=== PATIENT | male | born 1960 | race American Indian/Alaskan Native ===

== ENCOUNTER 2020-05-22 02:35 | Inpatient (IN) | payer SELFPAY ==
[~2020-05-22] VITALS: Ht 180.3 cm; Wt 121.0 kg
[~2020-05-22 02:35] MED LIST: ASPI-1265 PO; ATOR20TA PO; CARV-49 PO; LISI2.5T2 PO; METF-438 PO; PANT-47 PO
[2020-05-22 03:42] LABS: ALANINE AMINOTRANSFERASE 25 U/L (12-78); ALBUMIN 3.4 G/DL (3.4-5.0); ALBUMIN/GLOBULIN RATIO 0.9 (1.1-1.5); ALKALINE PHOSPHATASE 82 IU/L (46-116); ANION GAP 10 (8-16); ASPARTATE AMINO TRANSFERASE 21 U/L (10-37); BILIRUBIN,TOTAL 1.6 MG/DL (0.1-1.0); BLOOD UREA NITROGEN 17 MG/DL (7-18); BUN/CREATININE RATIO 9.7 (5.4-32.0); CALCIUM 8.6 MG/DL (8.5-10.1); CHLORIDE 105 MMOL/L (99-107); CREATININE 1.75 MG/DL (0.60-1.10); GLUCOSE 174 MG/DL (70-104); SODIUM 140 MMOL/L (135-145); TOTAL CARBON DIOXIDE 25.3 MMOL/L (24-32); TOTAL PROTEIN 7.4 G/DL (6.4-8.2); eGFR 40 ML/MIN
[2020-05-22 04:09] LABS: BASOPHILS # (AUTO) 0.1 X10'3 (0-0.2); BASOPHILS % (AUTO) 0.6 % (0-1); EOSINOPHILS # (AUTO) 0.1 X10'3 (0-0.9); EOSINOPHILS % (AUTO) 1.1 % (0-6); HEMATOCRIT 49.4 % (42.0-52.0); HEMOGLOBIN 16.1 g/dl (14.0-17.9); LYMPHOCYTES # (AUTO) 2.3 X10'3 (1.1-4.8); LYMPHOCYTES % (AUTO) 23.5 % (21-51); MEAN CORPUSCULAR HEMOGLOBIN 28.7 PG (27.0-31.0); MEAN CORPUSCULAR HGB CONC 32.6 g/dL (33.0-36.5); MEAN PLATELET VOLUME 10.1 FL (7.4-10.4); MONOCYTES % (AUTO) 10.2 % (2-12); NEUTROPHILS # (AUTO) 6.4 X10'3 (1.8-7.7); NEUTROPHILS % (AUTO) 64.6 % (42-75); PLATELET COUNT 260 X10'3 (140-440); RED BLOOD COUNT 5.62 X10'6 (4.70-6.10); RED CELL DISTRIBUTION WIDTH 14.5 % (11.5-14.5); WHITE BLOOD COUNT 9.9 X10'3 (4.5-11.0)
[2020-05-22] MEDS ORDERED: heparin 25,000 UNIT/250ml bag 250 ML IV SCH (04:22)
[2020-05-22] MEDS ORDERED: heparin 10,000 units/1 ML INJ IV PRN (04:25)
[2020-05-22] MEDS ORDERED: heparin 10,000 units/1 ML INJ IV ONE ×2 (04:25→04:35)
[2020-05-22 04:46] LABS: D-DIMER 1.88 MG/L FEU (0-0.50); PARTIAL THROMBOPLASTIN TIME 28 SECONDS (22-32)
[2020-05-22] MEDS ORDERED: iohexol 350MG/ML 100ml bottle IV ONE (05:28)
[2020-05-22] MEDS: normal saline 1000ml 1,000 ML IV SCH (05:43)
[2020-05-22] MEDS ORDERED: ondansetron/PF 4mg/2ml inj IV PRN (05:45)
[2020-05-22] MEDS ORDERED: magnesium hydroxide 30ml (MOM) UD suspension PO PRN (05:45)
[2020-05-22] MEDS ORDERED: mag hydrox/Alum hydrox/simeth 30ml oral suspension PO PRN (05:45)
[2020-05-22] MEDS ORDERED: dextrose 50%-water 50ml dispensing syringe IV PRN ×2 (05:50)
[2020-05-22] MEDS ORDERED: dextrose ORAL solution 15 GM/59 ML bottle PO PRN ×2 (05:50)
[2020-05-22] MEDS ORDERED: MESSAGE TO PHARMACY PO ONE (05:50)
[2020-05-22] MEDS ORDERED: glucagon, human recombinant 1mg kit SUBCUT PRN (05:50)
[2020-05-22] MEDS: MESSAGE TO NURSING PO SCH ×2 (06:00→10:00)
[2020-05-22] MEDS ORDERED: CARV6.253 PO (06:02)
[2020-05-22] MEDS ORDERED: UBID100C16 PO (06:02)
[2020-05-22] MEDS ORDERED: APIX5TAB3 PO (06:02)
[2020-05-22] MEDS ORDERED: AMIO200T61 PO (06:02)
[2020-05-22] MEDS ORDERED: BACL10TA PO (06:02)
[2020-05-22] MEDS ORDERED: GLYB2.5T4 PO (06:02)
[2020-05-22] MEDS: acetaminophen 325mg tablet PO PRN ×2 (06:09→19:38)
--- NOTE | 2020-05-22 06:16 | NUR ---
Dr Hoffman aware of patient's BP of 149/125.
[2020-05-22] MEDS ORDERED: baclofen 10mg tablet PO PRN (06:20)
[2020-05-22 06:43] LABS: HEMOGLOBIN A1C 7.5 % (4.5-6.2)
[2020-05-22] MEDS ORDERED: furosemide 10 MG/1 ML 10ml inj IV ONE (06:45)
--- NOTE | 2020-05-22 07:19 | NUR ---
Pt ambulated to the restroom with IV pole, unassisted.
[2020-05-22] MEDS ORDERED: carvedilol 6.25mg tablet PO SCH (08:00)
[2020-05-22] MEDS ORDERED: apixaban 5mg tablet PO SCH (08:00)
[2020-05-22 09:00] VITALS: BP 138/114
[2020-05-22] MEDS ORDERED: apixaban 5mg tablet PO ONE (09:15)
--- NOTE | 2020-05-22 09:20 | NUR ---
Heparin Drip Orders Stopped per Sudhir NARAYAN PAGER ID: [phone] MESSAGE: Wesly Barrios Rm [id number] Heparin Drip is running at 2000 units/Hr. CT for PE is neg. Will we be continuing the drip? Nguyen MARTINEZ [phone] Drip is discontinued.
[2020-05-22] MEDS: amiodarone 200mg tablet PO SCH (10:05)
[2020-05-22] MEDS: atorvastatin 20mg tablet PO SCH (10:05)
[2020-05-22] MEDS: pantoprazole 40mg Tablet.DR PO SCH (10:05)
[2020-05-22] MEDS: aspirin 81mg tab.chew PO SCH (10:06)
[2020-05-22] MEDS: carvedilol 6.25mg tablet PO SCH ×2 (10:06→19:38)
[2020-05-22] MEDS ORDERED: metoprolol tartrate 1mg/ml inj IV PRN (10:20)
[2020-05-22] MEDS ORDERED: nitroGLYCERIN 0.4mg SUBLingual tab SL PRN (10:20)
[2020-05-22] MEDS ORDERED: aminophylline 250mg/10ml inj. IV PRN (10:20)
[2020-05-22] MEDS ORDERED: regadenoson 0.4mg/5ml syringe IV ONE (10:20)
[2020-05-22 11:00] VITALS: BP 138/114
[2020-05-22 11:18] LABS: PARTIAL THROMBOPLASTIN TIME 64 SECONDS (22-32)
--- NOTE | 2020-05-22 14:02 | NUR ---
DM Consult: A1C 7.5. Pt would benefit from DM ed prior to discharge. Addendum: 05/22/20 at [address] Amended: Links added.
[2020-05-22 15:00] VITALS: BP 103/71
[2020-05-22 15:32] VITALS: BP 11/64
[2020-05-22 19:00] VITALS: BP 125/91
[2020-05-22] MEDS: apixaban 5mg tablet PO SCH (19:38)
[2020-05-22] MEDS: insulin glargine (Lantus) pen - multi-dose SQ SCH (21:00)
[2020-05-22 23:00] VITALS: BP 132/94
[2020-05-23] VITALS (13 sets, daily range): BP systolic 109–161; BP diastolic 60–113
[2020-05-23 06:38] LABS: BASOPHILS # (AUTO) 0.1 X10'3 (0-0.2); BASOPHILS % (AUTO) 0.9 % (0-1); EOSINOPHILS # (AUTO) 0.3 X10'3 (0-0.9); HEMATOCRIT 44.6 % (42.0-52.0); HEMOGLOBIN 14.8 g/dl (14.0-17.9); LYMPHOCYTES # (AUTO) 2.8 X10'3 (1.1-4.8); LYMPHOCYTES % (AUTO) 38.8 % (21-51); MEAN CORPUSCULAR HGB CONC 33.2 g/dL (33.0-36.5); MEAN CORPUSCULAR VOLUME 87.4 FL (78-98); MEAN PLATELET VOLUME 9.7 FL (7.4-10.4); MONOCYTES # (AUTO) 0.9 X10'3 (0-0.9); MONOCYTES % (AUTO) 12.9 % (2-12); NEUTROPHILS # (AUTO) 3.2 X10'3 (1.8-7.7); NEUTROPHILS % (AUTO) 43.4 % (42-75); PLATELET COUNT 236 X10'3 (140-440); RED CELL DISTRIBUTION WIDTH 14.4 % (11.5-14.5); WHITE BLOOD COUNT 7.3 X10'3 (4.5-11.0)
--- NOTE | 2020-05-23 06:39 | NUR ---
Patient in room PCU 3016. I have received report from Taylor MARTINEZ and had the opportunity to ask questions and assume patient care. Patient asleep in bed. 2L NC. In no acute distress. Will continue to monitor.
[2020-05-23 06:48] LABS: ALANINE AMINOTRANSFERASE 24 U/L (12-78); ALBUMIN 1.5 G/DL (3.4-5.0); ALBUMIN/GLOBULIN RATIO 0.3 (1.1-1.5); ALKALINE PHOSPHATASE 70 IU/L (46-116); ANION GAP 6 (8-16); ASPARTATE AMINO TRANSFERASE 19 U/L (10-37); BILIRUBIN,TOTAL 1.6 MG/DL (0.1-1.0); BLOOD UREA NITROGEN 20 MG/DL (7-18); BUN/CREATININE RATIO 11.3 (5.4-32.0); CALCIUM 8.7 MG/DL (8.5-10.1); CHLORIDE 106 MMOL/L (99-107); CREATININE 1.77 MG/DL (0.60-1.10); GLUCOSE 128 MG/DL (70-104); POTASSIUM 3.6 MMOL/L (3.5-5.1); SODIUM 141 MMOL/L (135-145); TOTAL CARBON DIOXIDE 28.8 MMOL/L (24-32); TOTAL PROTEIN 6.6 G/DL (6.4-8.2); eGFR 40 ML/MIN
[2020-05-23] MEDS: K and/or MAG REPLACEMENT MC SCH ×2 (08:00→20:00)
[2020-05-23] MEDS: UBIDECARENONE 100 MG PO SCH (08:00)
[2020-05-23] MEDS: apixaban 5mg tablet PO SCH (08:04)
[2020-05-23] MEDS: amiodarone 200mg tablet PO SCH (08:04)
[2020-05-23] MEDS: levoTHYROXINE 25mcg tablet PO SCH (08:04)
[2020-05-23] MEDS: carvedilol 6.25mg tablet PO SCH ×2 (08:04→19:13)
[2020-05-23] MEDS: atorvastatin 20mg tablet PO SCH (08:05)
[2020-05-23] MEDS: aspirin 81mg tab.chew PO SCH (08:05)
[2020-05-23] MEDS: pantoprazole 40mg Tablet.DR PO SCH (08:07)
[2020-05-23] MEDS: MESSAGE TO NURSING PO SCH (10:00)
[2020-05-23] MEDS ORDERED: magnesium 4gm in 100ml NS 100 ML IV PRN (10:40)
[2020-05-23] MEDS ORDERED: potassium CL 10mEq/100ml bag 100 ML IV PRN (10:40)
[2020-05-23] MEDS ORDERED: potassium Cl 20 mEq SR tablet PO PRN ×2 (10:40)
[2020-05-23] MEDS ORDERED: magnesium Cl slow-release 64mg tablet PO PRN (10:40)
--- NOTE | 2020-05-23 12:19 | NUR ---
Paged Dr. Hill: PAGER ID: [phone] MESSAGE: RE: Garret Riley [id number]. MOHINI lexiscan results back. Margarette [phone]
--- NOTE | 2020-05-23 15:23 | NUR ---
F/u: Written DM ed w/ MANDA contact information placed in pt chart. Addendum: 05/23/20 at [address] Amended: Links added.
--- NOTE | 2020-05-23 18:13 | NUR ---
Problems reprioritized. Patient report given, questions answered & plan of care reviewed with JUAN Smart. Patient stable at transfer of care.
--- NOTE | 2020-05-23 18:14 | NUR ---
Patient in room PCU 3017v. I have received report from JUAN WALKER AND JUAN MÉNDEZ and had the opportunity to ask questions and assume patient care. PATIENT SITTING UP AT BEDSIDE FOR REPORT. ON ROOM AIR AND STABLE AT THIS TIME. PATIENT OFFERS NO COMPLAINTS. WILL CONTINUE TO MONITOR CLOSELY.
[2020-05-23] MEDS: insulin Lispro (HumaLOG) vial - multi-dose SQ SCH (19:11)
[2020-05-23] MEDS: lisinopril 10 MG tablet PO SCH (21:01)
[2020-05-23] MEDS: insulin glargine (Lantus) pen - multi-dose SQ SCH (21:07)
[2020-05-23] MEDS ORDERED: LIDOcaine/PRILOcaine 5gm cream TP ONE (23:50)
[2020-05-23] MEDS ORDERED: acetylcysteine 200 MG/ml 4ml vial INH ONE (23:50)
[2020-05-23] MEDS ORDERED: sodium bicarbonate (8.4%) inj. 150 MEQ in sodium chloride 0.45% 1,000 ML IV SCH (23:55)
[2020-05-24] VITALS (14 sets, daily range): BP systolic 127–160; BP diastolic 87–118
[2020-05-24 01:03] LABS: BASOPHILS # (AUTO) 0.1 X10'3 (0-0.2); BASOPHILS % (AUTO) 1.1 % (0-1); EOSINOPHILS # (AUTO) 0.3 X10'3 (0-0.9); EOSINOPHILS % (AUTO) 2.8 % (0-6); HEMOGLOBIN 15.3 g/dl (14.0-17.9); LYMPHOCYTES # (AUTO) 2.3 X10'3 (1.1-4.8); LYMPHOCYTES % (AUTO) 23.8 % (21-51); MEAN CORPUSCULAR HEMOGLOBIN 29.3 PG (27.0-31.0); MEAN CORPUSCULAR HGB CONC 33.4 g/dL (33.0-36.5); MEAN CORPUSCULAR VOLUME 87.8 FL (78-98); MEAN PLATELET VOLUME 9.6 FL (7.4-10.4); MONOCYTES # (AUTO) 0.8 X10'3 (0-0.9); MONOCYTES % (AUTO) 8.1 % (2-12); NEUTROPHILS # (AUTO) 6.1 X10'3 (1.8-7.7); NEUTROPHILS % (AUTO) 64.2 % (42-75); PLATELET COUNT 248 X10'3 (140-440); RED BLOOD COUNT 5.24 X10'6 (4.70-6.10); RED CELL DISTRIBUTION WIDTH 14.5 % (11.5-14.5); WHITE BLOOD COUNT 9.6 X10'3 (4.5-11.0)
[2020-05-24 01:18] LABS: ALANINE AMINOTRANSFERASE 16 U/L (12-78); ALBUMIN 3.1 G/DL (3.4-5.0); ALBUMIN/GLOBULIN RATIO 0.8 (1.1-1.5); ALKALINE PHOSPHATASE 73 IU/L (46-116); ANION GAP 8 (8-16); ASPARTATE AMINO TRANSFERASE 17 U/L (10-37); BILIRUBIN,TOTAL 1.1 MG/DL (0.1-1.0); BLOOD UREA NITROGEN 25 MG/DL (7-18); BUN/CREATININE RATIO 11.8 (5.4-32.0); CALCIUM 8.5 MG/DL (8.5-10.1); CHLORIDE 103 MMOL/L (99-107); CREATININE 2.11 MG/DL (0.60-1.10); GLUCOSE 169 MG/DL (70-104); MAGNESIUM 1.8 MG/DL (1.5-2.4); PHOSPHORUS 3.8 MG/DL (2.3-4.5); POTASSIUM 3.8 MMOL/L (3.5-5.1); SODIUM 139 MMOL/L (135-145); TOTAL CARBON DIOXIDE 28.5 MMOL/L (24-32); TOTAL PROTEIN 6.8 G/DL (6.4-8.2); eGFR 32 ML/MIN
[2020-05-24] MEDS: normal saline 1000ml 1,000 ML IV SCH (05:43)
--- NOTE | 2020-05-24 06:49 | NUR ---
Problems reprioritized. Patient report given, questions answered & plan of care reviewed with JUAN WALKER.
[2020-05-24] MEDS: acetylcysteine 200 MG/ml 4ml vial PO SCH ×2 (07:03→19:15)
[2020-05-24] MEDS: levoTHYROXINE 25mcg tablet PO SCH (07:07)
[2020-05-24] MEDS: amiodarone 200mg tablet PO SCH (07:07)
[2020-05-24] MEDS: atorvastatin 20mg tablet PO SCH (07:07)
[2020-05-24] MEDS: pantoprazole 40mg Tablet.DR PO SCH (07:07)
[2020-05-24] MEDS: aspirin 81mg tab.chew PO SCH (07:07)
[2020-05-24] MEDS: carvedilol 6.25mg tablet PO SCH ×2 (07:07→19:10)
[2020-05-24] MEDS ORDERED: nitroGLYCERIN-Tridil 50MG/D5W 250 ML IV ONE (07:26)
[2020-05-24] MEDS ORDERED: iohexol 350MG/ML 100ml bottle IV ONE ×2 (07:26→08:59)
[2020-05-24] MEDS ORDERED: verapamil 2.5 mg/ml inj IV ONE (07:26)
[2020-05-24] MEDS ORDERED: LIDOcaine 1% (10mg/ml)w/preservative injection 20ml MDV ONE (07:26)
[2020-05-24] MEDS ORDERED: heparin 1,000unit/ml 10ml vial 10 ML ONE (07:26)
[2020-05-24] MEDS ORDERED: midazolam 2 mg/2 ml injection ONE (07:26)
[2020-05-24] MEDS ORDERED: fentaNYL/PF 50MCG/1 ML 2ML syringe ONE (07:26)
[2020-05-24] MEDS: UBIDECARENONE 100 MG PO SCH (08:00)
[2020-05-24] MEDS: K and/or MAG REPLACEMENT MC SCH ×2 (08:00→20:00)
[2020-05-24] MEDS ORDERED: DOBUTamine-DoBUTrex 500mg/D5W 250 ML IV ONE (08:19)
[2020-05-24 09:56] LABS: ISTAT Hct ART 44 %PCV (42-52); ISTAT O2 SATURATION ARTERIAL 94 % (95-98); ISTAT SOURCE ART
[2020-05-24] MEDS ORDERED: hydrALAZINE 20mg/ml inj. IV PRN (10:30)
[2020-05-24] MEDS ORDERED: sodium bicarbonate (8.4%) inj. 150 MEQ in sodium chloride 0.45% 1,000 ML IV SCH ×2 (10:30→16:00)
[2020-05-24] MEDS: DOBUTamine-DoBUTrex 500mg/D5W 250 ML IV SCH ×2 (10:42→22:31)
--- NOTE | 2020-05-24 18:40 | NUR ---
Orientee documentation: I have reviewed and agree with all interventions, assessments performed and documented by JUAN Williamson. Orientee Medication Administration: For this medication-pass time frame, all medication were reviewed, dispensed, administered and documented per hospital policy by JUAN Williamson.
--- NOTE | 2020-05-24 18:49 | NUR ---
Patient in room PCU 3016B. I have received report from JUAN WALKER AND JUAN MÉNDEZ and had the opportunity to ask questions and assume patient care. PATIENT AWAKE FOR BEDSIDE REPORT, ON ROOM AIR, AND STABLE AT THIS TIME. 1/2NS c SODIUM BICARB INFUSING AT 100 ML/HR PER PROVIDER ORDER. WILL CONTINUE TO MONITOR CLOSELY.
[2020-05-24] MEDS: insulin Lispro (HumaLOG) vial - multi-dose SQ SCH (19:09)
[2020-05-24] MEDS: apixaban 5mg tablet PO SCH (19:09)
[2020-05-24] MEDS: insulin glargine (Lantus) pen - multi-dose SQ SCH (21:06)
[2020-05-24] MEDS: lisinopril 10 MG tablet PO SCH (21:06)
--- NOTE | 2020-05-24 22:57 | NUR ---
PATIENT'S BP ELEVATED AT 131/101 HR 77. NEW ORDERS FROM DR. COOLEY TO REDUCE DOBUTAMINE GTT TO 3 MCG/KG/MIN. WILL CONTINUE TO MONITOR CLOSELY.
[2020-05-25] VITALS (28 sets, daily range): BP systolic 115–177; BP diastolic 74–136
--- NOTE | 2020-05-25 06:02 | NUR ---
Problems reprioritized. Patient report given, questions answered & plan of care reviewed with JUAN WALKER AND JUAN MÉNDEZ.
--- NOTE | 2020-05-25 06:27 | NUR ---
Patient in room PCU 3016. I have received report from JUAN Smart and had the opportunity to ask questions and assume patient care. Patient asleep in bed and resting. In no acute distress.
--- NOTE | 2020-05-25 06:31 | NUR ---
Patient in room PCU 3016B. I have received report from Berry MARTINEZ and had the opportunity to ask questions and assume patient care. Patient sleeping comfortably and in no apparent distress. Bedside monitor shows stable vitals. Patient now NPO for FROILAN and cardioversion scheduled for today.
[2020-05-25 06:46] LABS: BASOPHILS # (AUTO) 0.1 X10'3 (0-0.2); BASOPHILS % (AUTO) 0.8 % (0-1); EOSINOPHILS # (AUTO) 0.2 X10'3 (0-0.9); EOSINOPHILS % (AUTO) 2.7 % (0-6); HEMATOCRIT 44.3 % (42.0-52.0); HEMOGLOBIN 14.7 g/dl (14.0-17.9); LYMPHOCYTES % (AUTO) 25.9 % (21-51); MEAN CORPUSCULAR HGB CONC 33.3 g/dL (33.0-36.5); MEAN CORPUSCULAR VOLUME 87.1 FL (78-98); MEAN PLATELET VOLUME 10.1 FL (7.4-10.4); MONOCYTES # (AUTO) 0.9 X10'3 (0-0.9); MONOCYTES % (AUTO) 11.3 % (2-12); NEUTROPHILS # (AUTO) 4.7 X10'3 (1.8-7.7); NEUTROPHILS % (AUTO) 59.3 % (42-75); PLATELET COUNT 224 X10'3 (140-440); RED BLOOD COUNT 5.08 X10'6 (4.70-6.10); RED CELL DISTRIBUTION WIDTH 14.6 % (11.5-14.5); WHITE BLOOD COUNT 7.9 X10'3 (4.5-11.0)
[2020-05-25 06:47] LABS: ALANINE AMINOTRANSFERASE 23 U/L (12-78); ALBUMIN/GLOBULIN RATIO 0.9 (1.1-1.5); ALKALINE PHOSPHATASE 66 IU/L (46-116); ANION GAP 6 (8-16); ASPARTATE AMINO TRANSFERASE 18 U/L (10-37); BILIRUBIN,TOTAL 1.2 MG/DL (0.1-1.0); BLOOD UREA NITROGEN 19 MG/DL (7-18); BUN/CREATININE RATIO 12.8 (5.4-32.0); CALCIUM 8.6 MG/DL (8.5-10.1); CHLORIDE 106 MMOL/L (99-107); CREATININE 1.49 MG/DL (0.60-1.10); GLUCOSE 95 MG/DL (70-104); MAGNESIUM 1.8 MG/DL (1.5-2.4); PHOSPHORUS 3.2 MG/DL (2.3-4.5); POTASSIUM 3.7 MMOL/L (3.5-5.1); SODIUM 142 MMOL/L (135-145); TOTAL CARBON DIOXIDE 29.7 MMOL/L (24-32); TOTAL PROTEIN 6.4 G/DL (6.4-8.2); eGFR 48 ML/MIN
[2020-05-25] MEDS: levoTHYROXINE 25mcg tablet PO SCH (07:47)
[2020-05-25] MEDS: amiodarone 200mg tablet PO SCH (07:47)
[2020-05-25] MEDS: atorvastatin 20mg tablet PO SCH (07:48)
[2020-05-25] MEDS: apixaban 5mg tablet PO SCH ×2 (07:48→19:44)
[2020-05-25] MEDS: aspirin 81mg tab.chew PO SCH (07:48)
[2020-05-25] MEDS: carvedilol 6.25mg tablet PO SCH ×2 (07:48→19:44)
[2020-05-25] MEDS: pantoprazole 40mg Tablet.DR PO SCH (07:48)
[2020-05-25] MEDS: acetylcysteine 200 MG/ml 4ml vial PO SCH ×2 (07:49→19:44)
[2020-05-25] MEDS: K and/or MAG REPLACEMENT MC SCH ×2 (08:00→19:42)
[2020-05-25] MEDS ORDERED: MIDAZolam 1mg/ml 10ml vial IV ONE ×2 (09:00→09:50)
[2020-05-25] MEDS ORDERED: morphine 2 MG/ML inj. syringe IV ONE (09:00)
[2020-05-25] MEDS ORDERED: amiodarone 150mg/dext, iso-os 100 ML IV ONE (09:30)
[2020-05-25] MEDS ORDERED: carvedilol 6.25mg tablet PO ONE (10:20)
--- NOTE | 2020-05-25 10:20 | NUR ---
New order from Dr. Torres: 6.25 mg coreg now. Increase dosage to 12.5 mg BID. Lisinopril 10 mg BID.
--- NOTE | 2020-05-25 10:21 | NUR ---
Per Dr. Torres dobutamine gtt @ 5 mcg/kg
[2020-05-25] MEDS ORDERED: ondansetron 4mg rapidly disintigrating tab PO PRN (14:40)
[2020-05-25] MEDS: DOBUTamine-DoBUTrex 500mg/D5W 250 ML IV SCH (15:34)
[2020-05-25] MEDS: insulin Lispro (HumaLOG) vial - multi-dose SQ SCH (18:39)
--- NOTE | 2020-05-25 19:08 | NUR ---
Patient in room PCU 3016. I have received report from Margarette MARTINEZ and Macarena RN and had the opportunity to ask questions and assume patient care.
[2020-05-25] MEDS: lisinopril 10 MG tablet PO SCH (19:45)
[2020-05-25] MEDS: insulin glargine (Lantus) pen - multi-dose SQ SCH (21:20)
[2020-05-26 02:00] VITALS: BP 137/105
[2020-05-26] MEDS: DOBUTamine-DoBUTrex 500mg/D5W 250 ML IV SCH ×2 (03:22→08:14)
[2020-05-26 05:33] LABS: BASOPHILS # (AUTO) 0.1 X10'3 (0-0.2); BASOPHILS % (AUTO) 0.8 % (0-1); EOSINOPHILS # (AUTO) 0.2 X10'3 (0-0.9); EOSINOPHILS % (AUTO) 3.1 % (0-6); HEMATOCRIT 42.7 % (42.0-52.0); HEMOGLOBIN 14.1 g/dl (14.0-17.9); LYMPHOCYTES % (AUTO) 27.7 % (21-51); MEAN CORPUSCULAR HEMOGLOBIN 29.3 PG (27.0-31.0); MEAN CORPUSCULAR HGB CONC 33.1 g/dL (33.0-36.5); MEAN CORPUSCULAR VOLUME 88.5 FL (78-98); MEAN PLATELET VOLUME 9.8 FL (7.4-10.4); MONOCYTES # (AUTO) 0.8 X10'3 (0-0.9); MONOCYTES % (AUTO) 10.7 % (2-12); NEUTROPHILS # (AUTO) 4.2 X10'3 (1.8-7.7); NEUTROPHILS % (AUTO) 57.7 % (42-75); PLATELET COUNT 212 X10'3 (140-440); RED BLOOD COUNT 4.82 X10'6 (4.70-6.10); RED CELL DISTRIBUTION WIDTH 14.5 % (11.5-14.5); WHITE BLOOD COUNT 7.2 X10'3 (4.5-11.0)
[2020-05-26] MEDS: normal saline 1000ml 1,000 ML IV SCH (05:43)
[2020-05-26 06:13] LABS: ALANINE AMINOTRANSFERASE 18 U/L (12-78); ALBUMIN 2.9 G/DL (3.4-5.0); ALBUMIN/GLOBULIN RATIO 0.9 (1.1-1.5); ALKALINE PHOSPHATASE 65 IU/L (46-116); ANION GAP 7 (8-16); ASPARTATE AMINO TRANSFERASE 17 U/L (10-37); BILIRUBIN,TOTAL 1.1 MG/DL (0.1-1.0); BLOOD UREA NITROGEN 16 MG/DL (7-18); BUN/CREATININE RATIO 9.4 (5.4-32.0); CALCIUM 8.3 MG/DL (8.5-10.1); CHLORIDE 105 MMOL/L (99-107); CHOLESTEROL 162 MG/DL (0-200); CREATININE 1.71 MG/DL (0.60-1.10); GLUCOSE 92 MG/DL (70-104); HDL CHOLESTEROL 41 MG/DL (35-60); LDL CHOLESTEROL 105 MG/DL (50-100); MAGNESIUM 1.9 MG/DL (1.5-2.4); PHOSPHORUS 3.1 MG/DL (2.3-4.5); POTASSIUM 3.7 MMOL/L (3.5-5.1); SODIUM 142 MMOL/L (135-145); TOTAL CARBON DIOXIDE 30.5 MMOL/L (24-32); TOTAL PROTEIN 6.3 G/DL (6.4-8.2); TRIGLYCERIDES 69 MG/DL (20-135); eGFR 41 ML/MIN
--- NOTE | 2020-05-26 06:34 | NUR ---
Problems reprioritized. Patient report given, questions answered & plan of care reviewed with Ángel MARTINEZ.
[2020-05-26 07:00] VITALS: BP 145/115
[2020-05-26] MEDS: levoTHYROXINE 25mcg tablet PO SCH (07:00)
[2020-05-26] MEDS: acetylcysteine 200 MG/ml 4ml vial PO SCH (08:00)
[2020-05-26] MEDS: K and/or MAG REPLACEMENT MC SCH (08:00)
[2020-05-26] MEDS: atorvastatin 20mg tablet PO SCH (08:10)
[2020-05-26] MEDS: apixaban 5mg tablet PO SCH (08:10)
[2020-05-26] MEDS: pantoprazole 40mg Tablet.DR PO SCH (08:10)
[2020-05-26] MEDS: amiodarone 200mg tablet PO SCH (08:10)
[2020-05-26] MEDS: lisinopril 10 MG tablet PO SCH (08:10)
[2020-05-26] MEDS: aspirin 81mg tab.chew PO SCH (08:10)
[2020-05-26] MEDS: carvedilol 6.25mg tablet PO SCH (08:11)
[2020-05-26 11:00] VITALS: BP 121/93
--- NOTE | 2020-05-26 11:30 | NUR ---
Initial: Pt presented with SOB and admitted with new onset A.fib, LVEF now 20-25% per MD note. Pt s/p cardiac catheterization per MD note. Pt currently on a heart healthy CHO controlled diet documented with 75-100% PO intake. D/w dietary to send double protein BIDLD for satiety. [facility] 05/25. Will continue to follow and monitor need for further nutrition intervention. Recommendations: 1) Continue heart healthy CHO controlled diet 2) Double protein BIDLD for satiety 3) Bowel care PRN 4) Scaled wts per rx Addendum: 05/26/20 at [address] Amended: Links added.
[2020-05-26] MEDS ORDERED: POTA20TA19 PO (13:39)
[2020-05-26] MEDS ORDERED: LEVO25TA7 PO (13:39)
[2020-05-26] MEDS ORDERED: FURO-150 PO (13:39)
[2020-05-26] MEDS ORDERED: CARV-50 PO (13:39)
[2020-05-26] MEDS ORDERED: ALBU8.5H8 INH (13:39)
[2020-05-26] MEDS ORDERED: LISI10TA4 PO (13:39)
[2020-05-26] MEDS: insulin Lispro (HumaLOG) vial - multi-dose SQ SCH (14:09)
--- NOTE | 2020-05-26 14:22 | NUR ---
PAGER ID: [phone] MESSAGE: [id number] Mikala Riley Dr. has seen patient. Contacted [employer]. It will take 24hrs for insurance to confirm with them but they can fit him at home. DCing w/o [employer]. Just MOHINI Woodall [phone]
--- NOTE | 2020-05-26 15:50 | NUR ---
Per MD patient stable for discharge home. Discharge packet reviewed with patient and son at bedside; all questions answered to patient satisfaction. New prescriptions called in to pharmacy of preference. PIV discontinued, cannula intact; mobil monitoring discontinued. All belongings sent with patient. Transferred to private vehicle via wheelchair accompanied by son and student nurse.
== END 2020-05-26 15:42 | disposition home or self-care (01) | DRG 286 ==
LOC: ER 02:35 → ED HOLD 05:43 → PCU 3S 08:48
PROVIDERS: ADMIT Internal Medicine; ATTEND Family Medicine
PROC: B32T1ZZ Computerized Tomography (CT Scan) of Left Pulmonary Artery using Low Osmolar Contrast (ICD-10-PCS; 2020-05-22)
PROC: B3201ZZ Computerized Tomography (CT Scan) of Thoracic Aorta using Low Osmolar Contrast (ICD-10-PCS; 2020-05-22)
PROC: B32S1ZZ Computerized Tomography (CT Scan) of Right Pulmonary Artery using Low Osmolar Contrast (ICD-10-PCS; 2020-05-22)
PROC: 4A02XM4 Measurement of Cardiac Total Activity, External Approach (ICD-10-PCS; 2020-05-23)
PROC: 3E073KZ Introduction of Other Diagnostic Substance into Coronary Artery, Percutaneous Approach (ICD-10-PCS; 2020-05-23)
PROC: 4A023N8 Measurement of Cardiac Sampling and Pressure, Bilateral, Percutaneous Approach (ICD-10-PCS; principal; 2020-05-24)
PROC: B2111ZZ Fluoroscopy of Multiple Coronary Arteries using Low Osmolar Contrast (ICD-10-PCS; 2020-05-24)
PROC: B2151ZZ Fluoroscopy of Left Heart using Low Osmolar Contrast (ICD-10-PCS; 2020-05-24)
PROC: 5A2204Z Restoration of Cardiac Rhythm, Single (ICD-10-PCS; 2020-05-25)
DX: I13.0 Hypertensive heart and chronic kidney disease with heart failure and stage 1 through stage 4 chronic kidney disease, or unspecified chronic kidney disease (principal); I50.23 Acute on chronic systolic (congestive) heart failure; I48.92 Unspecified atrial flutter; I25.10 Atherosclerotic heart disease of native coronary artery without angina pectoris; E03.9 Hypothyroidism, unspecified; I42.0 Dilated cardiomyopathy; E11.21 Type 2 diabetes mellitus with diabetic nephropathy; E11.22 Type 2 diabetes mellitus with diabetic chronic kidney disease; E11.65 Type 2 diabetes mellitus with hyperglycemia; E78.5 Hyperlipidemia, unspecified; N18.3 Chronic kidney disease, stage 3 (moderate); M10.9 Gout, unspecified; M54.5 Low back pain; F17.220 Nicotine dependence, chewing tobacco, uncomplicated; G47.33 Obstructive sleep apnea (adult) (pediatric); G89.29 Other chronic pain; M54.9 Dorsalgia, unspecified; I48.0 Paroxysmal atrial fibrillation; J44.9 Chronic obstructive pulmonary disease, unspecified; Z79.899 Other long term (current) drug therapy; Z91.14 Patient's other noncompliance with medication regimen; Z88.0 Allergy status to penicillin; Z79.82 Long term (current) use of aspirin; Z91.19 Patient's noncompliance with other medical treatment and regimen
CPT/HCPCS: 36415; 71045; 71275; 78452; 80053; 80061; 82803; 82948; 83036; 83735; 83880; 84100; 84443; 84484; 85014; 85025; 85379; 85610; 85730; 87081; 93005; 93017; 93306; 93312; 93325; 93460; 96365; 96376; 99152; 99153; 99291; A4620; A5120; A9500; C1769; C1894; G0378; J1250; J1644; J1815; J1940; J2001; J2250; J2270; J2785; J3010; J3490; Q9967

== ENCOUNTER 2021-10-02 12:17 | Emergency (ER) | payer BC ==
[~2021-10-02] VITALS: Ht 180.3 cm; Wt 122.7 kg
[~2021-10-02 12:17] MED LIST changes: +ALBU8.5H17 INH; +AMIO200T61 PO; +APIX5TAB3 PO; +BACL10TA PO; -CARV-49 PO; +CARV-50 PO; +GLYB2.5T4 PO; +LEVO25TA7 PO; +LISI10TA27 PO; -LISI2.5T2 PO; +UBID100C16 PO
[2021-10-02 13:01] LABS: BASOPHILS # (AUTO) 0.1 X10'3 (0-0.2); BASOPHILS % (AUTO) 0.5 % (0-1); EOSINOPHILS # (AUTO) 0.1 X10'3 (0-0.9); HEMOGLOBIN 15.8 g/dl (14.0-17.9); LYMPHOCYTES % (AUTO) 9.4 % (21-51); MEAN CORPUSCULAR HEMOGLOBIN 30.1 PG (27.0-31.0); MEAN CORPUSCULAR HGB CONC 33.5 g/dL (33.0-36.5); MEAN CORPUSCULAR VOLUME 89.9 FL (78-98); MEAN PLATELET VOLUME 9.3 FL (7.4-10.4); MONOCYTES # (AUTO) 0.9 X10'3 (0-0.9); MONOCYTES % (AUTO) 8.5 % (2-12); NEUTROPHILS # (AUTO) 8.6 X10'3 (1.8-7.7); NEUTROPHILS % (AUTO) 80.6 % (42-75); PLATELET COUNT 253 X10'3 (140-440); RED BLOOD COUNT 5.23 X10'6 (4.70-6.10); RED CELL DISTRIBUTION WIDTH 15.2 % (11.5-14.5); WHITE BLOOD COUNT 10.6 X10'3 (4.5-11.0)
[2021-10-02 13:14] LABS: ALANINE AMINOTRANSFERASE 86 U/L (12-78); ALBUMIN 3.5 G/DL (3.4-5.0); ALBUMIN/GLOBULIN RATIO 0.8 (1.1-1.5); ALKALINE PHOSPHATASE 88 IU/L (46-116); ANION GAP 10 (8-16); ASPARTATE AMINO TRANSFERASE 100 U/L (10-37); BLOOD UREA NITROGEN 32 MG/DL (7-18); CALCIUM 8.7 MG/DL (8.5-10.1); CHLORIDE 104 MMOL/L (99-107); CREATININE 2.29 MG/DL (0.60-1.10); GLUCOSE 274 MG/DL (70-104); SODIUM 137 MMOL/L (135-145); TOTAL CARBON DIOXIDE 22.8 MMOL/L (24-32); TOTAL PROTEIN 7.9 G/DL (6.4-8.2); eGFR 29 ML/MIN
[2021-10-02 13:20] LABS: PARTIAL THROMBOPLASTIN TIME 27 SECONDS (22-32)
[2021-10-02] MEDS ORDERED: normal saline 1000ML IV soln IVB ONE (13:30)
[2021-10-02] MEDS ORDERED: insulin regular, human U-100 3ml vial - multi-dose IV ONE (13:30)
[2021-10-02] MEDS ORDERED: insulin regular, human 10 units/0.1 ml syringe IV ONE (13:30)
[2021-10-02] MEDS ORDERED: sodium polystyrene sulfonate 15gm/60ml oral suspension PO ONE (13:30)
[2021-10-02] MEDS ORDERED: furosemide 10 MG/1 ML 10ml inj IV STA (13:32)
[2021-10-02] MEDS ORDERED: ondansetron 4mg rapidly disintigrating tab PO ONE (13:55)
[2021-10-02 14:20] LABS: D-DIMER 0.21 MG/L FEU (0-0.50)
[2021-10-02 14:38] LABS: LIPASE 154 U/L (73-393)
--- NOTE | 2021-10-02 15:49 | NUR ---
Received VO from provider to hold polystyrene solution until CMP redrawn for lab value check of K is completed.
[2021-10-02 17:02] LABS: ALANINE AMINOTRANSFERASE 109 U/L (12-78); ALBUMIN 3.3 G/DL (3.4-5.0); ALBUMIN/GLOBULIN RATIO 0.8 (1.1-1.5); ALKALINE PHOSPHATASE 90 IU/L (46-116); ANION GAP 11 (8-16); ASPARTATE AMINO TRANSFERASE 97 U/L (10-37); BILIRUBIN,TOTAL 0.7 MG/DL (0.1-1.0); BLOOD UREA NITROGEN 35 MG/DL (7-18); BUN/CREATININE RATIO 15.8 (5.4-32.0); CALCIUM 7.9 MG/DL (8.5-10.1); CHLORIDE 107 MMOL/L (99-107); CREATININE 2.22 MG/DL (0.60-1.10); GLUCOSE 123 MG/DL (70-104); POTASSIUM 5.4 MMOL/L (3.5-5.1); SODIUM 139 MMOL/L (135-145); TOTAL CARBON DIOXIDE 21.5 MMOL/L (24-32); TOTAL PROTEIN 7.6 G/DL (6.4-8.2); eGFR 30 ML/MIN
[2021-10-02] MEDS ORDERED: LIDOcaine Viscous 15ml cup MM PRN (18:35)
[2021-10-02] MEDS ORDERED: mag hydrox/Alum hydrox/simeth 30ml oral suspension PO ONE (18:35)
[2021-10-02] MEDS ORDERED: carVEDilol 12.5mg tablet PO SCH (20:10)
[2021-10-02] MEDS ORDERED: carVEDilol 12.5mg tablet PO ONE (20:10)
[2021-10-02] MEDS ORDERED: lisinopril 10 MG tablet PO ONE (20:10)
[2021-10-02 20:33] LABS: ALANINE AMINOTRANSFERASE 112 U/L (12-78); ALBUMIN 3.5 G/DL (3.4-5.0); ALBUMIN/GLOBULIN RATIO 0.8 (1.1-1.5); ALKALINE PHOSPHATASE 92 IU/L (46-116); ANION GAP 10 (8-16); ASPARTATE AMINO TRANSFERASE 75 U/L (10-37); BILIRUBIN,TOTAL 0.6 MG/DL (0.1-1.0); BLOOD UREA NITROGEN 33 MG/DL (7-18); BUN/CREATININE RATIO 15.1 (5.4-32.0); CALCIUM 8.5 MG/DL (8.5-10.1); CHLORIDE 106 MMOL/L (99-107); CREATININE 2.19 MG/DL (0.60-1.10); GLUCOSE 97 MG/DL (70-104); POTASSIUM 5.5 MMOL/L (3.5-5.1); SODIUM 139 MMOL/L (135-145); TOTAL CARBON DIOXIDE 22.8 MMOL/L (24-32); eGFR 31 ML/MIN
[2021-10-02] MEDS ORDERED: KAY15L PO (21:26)
[2021-10-02 22:01] VITALS: BP 171/123
== END 2021-10-02 22:02 | disposition home or self-care (01) ==
LOC: ER 12:18
DX: R10.9 Unspecified abdominal pain (principal); R07.9 Chest pain, unspecified; E87.6 Hypokalemia; Z20.822 Contact with and (suspected) exposure to COVID-19; I11.0 Hypertensive heart disease with heart failure; I50.9 Heart failure, unspecified; E11.9 Type 2 diabetes mellitus without complications
CPT/HCPCS: 36415; 71045; 80053; 82948; 83690; 83735; 83880; 84484; 85025; 85379; 85610; 85730; 87635; 93005; 93978; 96361; 96374; 96375; 99285; C9803; J1815; J1940; J7030

== ENCOUNTER 2021-12-26 14:39 | Emergency (ER) | payer BC ==
[~2021-12-26] VITALS: Ht 180.3 cm; Wt 125.1 kg
[2021-12-26 14:44] VITALS: BP 175/106
[2021-12-26] MEDS ORDERED: tranexamic acid 100mg/ml inj. TP ONE ×2 (15:25→17:05)
[2021-12-26] MEDS ORDERED: CLIN150C2 PO (17:12)
== END 2021-12-26 17:17 | disposition home or self-care (01) ==
LOC: ER 14:39
DX: R04.0 Epistaxis (principal); I48.91 Unspecified atrial fibrillation; I11.0 Hypertensive heart disease with heart failure; I50.9 Heart failure, unspecified; E11.9 Type 2 diabetes mellitus without complications; Z98.890 Other specified postprocedural states; Z88.0 Allergy status to penicillin; Z79.82 Long term (current) use of aspirin; Z79.899 Other long term (current) drug therapy
CPT/HCPCS: 30901; 99284

== ENCOUNTER 2021-12-28 16:19 | Emergency (ER) | payer BC ==
[~2021-12-28] VITALS: Ht 177.8 cm; Wt 100.0 kg
[~2021-12-28 16:19] MED LIST changes: +CLIN150C2 PO
[2021-12-28 16:22] VITALS: BP 170/122
== END 2021-12-28 17:22 | disposition home or self-care (01) ==
LOC: ER 16:19
DX: Z76.89 Persons encountering health services in other specified circumstances (principal); R04.0 Epistaxis; I48.91 Unspecified atrial fibrillation; I11.0 Hypertensive heart disease with heart failure; I50.9 Heart failure, unspecified; E11.9 Type 2 diabetes mellitus without complications; Z98.890 Other specified postprocedural states; Z88.0 Allergy status to penicillin; Z79.82 Long term (current) use of aspirin; Z79.2 Long term (current) use of antibiotics; Z79.899 Other long term (current) drug therapy
CPT/HCPCS: 99281

== ENCOUNTER 2022-01-25 12:47 | Outpatient (CLI) | payer BC ==
[~2022-01-25 12:47] MED LIST changes: -CLIN150C2 PO
== END 2022-01-25 23:59 | disposition home or self-care (01) ==
LOC: CARD DIAG 12:47
PROVIDERS: ATTEND Internal Medicine Cardiovascular Disease
DX: I51.7 Cardiomegaly (principal); I42.9 Cardiomyopathy, unspecified; R06.02 Shortness of breath
CPT/HCPCS: 93306

== ENCOUNTER 2022-01-30 05:52 | Day surgery (SDC) | payer BC ==
[2022-01-29 14:14] LABS: BASOPHILS # (AUTO) 0.1 X10'3 (0-0.2); BASOPHILS % (AUTO) 0.9 % (0-1); EOSINOPHILS # (AUTO) 0.2 X10'3 (0-0.9); EOSINOPHILS % (AUTO) 3.4 % (0-6); HEMATOCRIT 49.2 % (42.0-52.0); HEMOGLOBIN 16.5 g/dl (14.0-17.9); LYMPHOCYTES # (AUTO) 1.6 X10'3 (1.1-4.8); LYMPHOCYTES % (AUTO) 28.6 % (21-51); MEAN CORPUSCULAR HEMOGLOBIN 29.5 PG (27.0-31.0); MEAN CORPUSCULAR HGB CONC 33.6 g/dL (33.0-36.5); MEAN CORPUSCULAR VOLUME 87.9 FL (78-98); MEAN PLATELET VOLUME 10.1 FL (7.4-10.4); MONOCYTES % (AUTO) 17.9 % (2-12); NEUTROPHILS # (AUTO) 2.8 X10'3 (1.8-7.7); NEUTROPHILS % (AUTO) 49.2 % (42-75); PLATELET COUNT 183 X10'3 (140-440); RED CELL DISTRIBUTION WIDTH 14.3 % (11.5-14.5); WHITE BLOOD COUNT 5.6 X10'3 (4.5-11.0)
[2022-01-29 14:34] LABS: PLATELET ESTIMATE NORMAL; TOTAL CELLS COUNTED 100
[2022-01-29 15:01] LABS: ALBUMIN 3.7 G/DL (3.4-5.0); ANION GAP 10 (8-16); BLOOD UREA NITROGEN 23 MG/DL (7-18); BUN/CREATININE RATIO 12.1 (5.4-32.0); CALCIUM 8.9 MG/DL (8.5-10.1); CHLORIDE 101 MMOL/L (99-107); GLUCOSE 304 MG/DL (70-104); POTASSIUM 4.9 MMOL/L (3.5-5.1); SODIUM 134 MMOL/L (135-145); TOTAL CARBON DIOXIDE 23.1 MMOL/L (24-32); eGFR 36 ML/MIN
[2022-01-30] VITALS (18 sets, daily range): BP systolic 113–168; BP diastolic 85–113
[~2022-01-30] VITALS: Ht 180.3 cm; Wt 122.6 kg
[2022-01-30] MEDS ORDERED: diphenhydrAMINE 25mg capsule PO ONE (06:10)
[2022-01-30] MEDS ORDERED: amiodarone 150mg/dext, iso-os 100 ML IV ONE (06:10)
[2022-01-30] MEDS ORDERED: MIDAZolam 1mg/ml 10ml vial IV ONE (06:10)
[2022-01-30] MEDS ORDERED: morphine 10mg/ml inj. IV ONE (06:10)
[2022-01-30] MEDS ORDERED: LORazepam 0.5 MG tablet PO ONE (06:10)
[2022-01-30] MEDS ORDERED: atropine 0.1mg/ml 10ml syringe IV ONE (06:10)
[2022-01-30] MEDS ORDERED: SPIR25TA5 PO (06:28)
[2022-01-30] MEDS ORDERED: CARV25TA2 PO (06:30)
[2022-01-30] MEDS ORDERED: LISINOPRIL 10 MG (06:30)
--- NOTE | 2022-01-30 06:30 | NUR ---
EKG indicating SR. MD notified. New order given for 2nd EKG and MD will come to bedside.
[2022-01-30] MEDS ORDERED: LEVO25CA4 PO (06:31)
[2022-01-30] MEDS ORDERED: ALBU8.5H17 INH (06:34)
[2022-01-30] MEDS ORDERED: Vitamin D PO (06:36)
[2022-01-30] MEDS ORDERED: LEVO100T PO (07:32)
[2022-01-30] MEDS ORDERED: carVEDilol 12.5mg tablet PO ONE (10:55)
--- NOTE | 2022-01-30 10:56 | NUR ---
MD notified pt BP elevated. New order given. Pt sitting up at bedside, feet dangling, drinking juice. Denies CP, denies sob.
== END 2022-01-30 11:55 | disposition home or self-care (01) ==
LOC: SSTAY O 05:52
PROVIDERS: ATTEND Internal Medicine Cardiovascular Disease
DX: I48.0 Paroxysmal atrial fibrillation (principal); E78.5 Hyperlipidemia, unspecified; E11.9 Type 2 diabetes mellitus without complications; M10.9 Gout, unspecified; I42.0 Dilated cardiomyopathy; E66.3 Overweight; Z68.36 Body mass index [BMI] 36.0-36.9, adult; I11.0 Hypertensive heart disease with heart failure; I50.22 Chronic systolic (congestive) heart failure; I25.10 Atherosclerotic heart disease of native coronary artery without angina pectoris; G47.30 Sleep apnea, unspecified; F17.220 Nicotine dependence, chewing tobacco, uncomplicated; Z98.890 Other specified postprocedural states; Z79.01 Long term (current) use of anticoagulants; Z79.84 Long term (current) use of oral hypoglycemic drugs; Z79.899 Other long term (current) drug therapy; Z88.0 Allergy status to penicillin; Z83.3 Family history of diabetes mellitus; Z80.9 Family history of malignant neoplasm, unspecified
CPT/HCPCS: 80048; 82948; 85025; 85610; 92960; 93005; 94760; 94799; J2250; J2274; 85007

== ENCOUNTER 2022-02-14 11:24 | Inpatient (IN) | payer BC ==
[~2022-02-14] VITALS: Ht 180.3 cm; Wt 88.3 kg
[~2022-02-14 11:24] MED LIST changes: -ASPI-1265 PO; -CARV-50 PO; +CARV25TA2 PO; +LEVO100T PO; -LEVO25TA7 PO; -LISI10TA27 PO; +LISINOPRIL 10 MG; +SPIR25TA5 PO; +Vitamin D PO
[2022-02-14 13:42] LABS: BASOPHILS # (AUTO) 0.1 X10'3 (0-0.2); BASOPHILS % (AUTO) 0.8 % (0-1); EOSINOPHILS # (AUTO) 0.2 X10'3 (0-0.9); EOSINOPHILS % (AUTO) 1.5 % (0-6); HEMATOCRIT 47.2 % (42.0-52.0); HEMOGLOBIN 15.7 g/dl (14.0-17.9); LYMPHOCYTES # (AUTO) 1.8 X10'3 (1.1-4.8); LYMPHOCYTES % (AUTO) 18.6 % (21-51); MEAN CORPUSCULAR HEMOGLOBIN 28.9 PG (27.0-31.0); MEAN CORPUSCULAR HGB CONC 33.2 g/dL (33.0-36.5); MEAN PLATELET VOLUME 10.7 FL (7.4-10.4); MONOCYTES % (AUTO) 10.4 % (2-12); NEUTROPHILS # (AUTO) 6.8 X10'3 (1.8-7.7); NEUTROPHILS % (AUTO) 68.7 % (42-75); PLATELET COUNT 183 X10'3 (140-440); RED BLOOD COUNT 5.42 X10'6 (4.70-6.10); RED CELL DISTRIBUTION WIDTH 14.8 % (11.5-14.5); WHITE BLOOD COUNT 9.8 X10'3 (4.5-11.0)
[2022-02-14 13:49] LABS: APTT 29 SECONDS (22-32)
[2022-02-14 13:56] LABS: ALKALINE PHOSPHATASE 76 IU/L (46-116)
[2022-02-14 14:37] LABS: ALANINE AMINOTRANSFERASE 24 U/L (12-78); ALBUMIN 3.3 G/DL (3.4-5.0); ALBUMIN/GLOBULIN RATIO 0.8 (1.1-1.5); ANION GAP 13 (8-16); ASPARTATE AMINO TRANSFERASE 22 U/L (10-37); BILIRUBIN,TOTAL 0.7 MG/DL (0.1-1.0); BLOOD UREA NITROGEN 23 MG/DL (7-18); BUN/CREATININE RATIO 14.5 (5.4-32.0); CALCIUM 8.5 MG/DL (8.5-10.1); CHLORIDE 108 MMOL/L (99-107); CREATININE 1.59 MG/DL (0.60-1.10); GLUCOSE 222 MG/DL (70-104); POTASSIUM 4.4 MMOL/L (3.5-5.1); SODIUM 140 MMOL/L (135-145); TOTAL CARBON DIOXIDE 19.5 MMOL/L (24-32); TOTAL PROTEIN 7.2 G/DL (6.4-8.2); eGFR 45 ML/MIN
[2022-02-14] MEDS ORDERED: ondansetron/PF 4mg/2ml inj IV ONE (14:40)
[2022-02-14] MEDS ORDERED: morphine 4 MG/ML inj SYRINge IV ONE (14:40)
[2022-02-14] MEDS ORDERED: normal saline 1000ml 1,000 ML IV ONE (14:55)
--- NOTE | 2022-02-14 19:30 | NUR ---
Unable to scan pt ID with glucometer
--- NOTE | 2022-02-14 20:07 | NUR ---
POC 219
--- NOTE | 2022-02-14 20:55 | NUR ---
pt observed resting comfortably, vss, easy arousal
[2022-02-14] MEDS ORDERED: acetaminophen 325mg tablet PO PRN (21:00)
[2022-02-14] MEDS ORDERED: acetaminophen 650mg rectal suppository RC PRN (21:00)
[2022-02-14] MEDS ORDERED: mag hydrox/Alum hydrox/simeth 30ml oral suspension PO PRN (21:00)
[2022-02-14] MEDS ORDERED: magnesium hydroxide 30ml (MOM) UD suspension PO PRN (21:00)
[2022-02-14] MEDS ORDERED: morphine 2 MG/ML inj. syringe IV PRN (21:00)
[2022-02-14] MEDS ORDERED: diphenhydrAMINE 50 mg/ml inj IV PRN (21:00)
[2022-02-14] MEDS ORDERED: ondansetron/PF 4mg/2ml inj IV PRN (21:00)
[2022-02-14] MEDS ORDERED: ondansetron 4mg rapidly disintigrating tab PO PRN (21:00)
[2022-02-14] MEDS ORDERED: bisacodyl 10mg suppository rectal RC PRN (21:00)
[2022-02-14] MEDS ORDERED: DEXTROSE 15 GM of carb/4 tabs (each vial/BOTTLE has 4 tablets) PO PRN (21:05)
[2022-02-14] MEDS ORDERED: dextrose 50%-water 50ml dispensing syringe IV PRN ×2 (21:05)
[2022-02-14] MEDS ORDERED: glucagon, human recombinant 1mg kit SUBCUT PRN (21:05)
[2022-02-14] MEDS ORDERED: MESSAGE TO PHARMACY PO ONE (21:05)
[2022-02-14 21:40] LABS: MAGNESIUM 1.7 MG/DL (1.5-2.4); PHOSPHORUS 2.7 MG/DL (2.3-4.5)
[2022-02-14 21:42] LABS: APTT 29 SECONDS (22-32)
[2022-02-14 22:01] LABS: HEMOGLOBIN A1C 12.7 % (4.5-6.2)
[2022-02-14] MEDS: normal saline 1000ml 1,000 ML IV SCH (22:44)
[2022-02-15 00:10] LABS: URINE AMPHETAMINE SCREEN NEGATIVE (Neg); URINE BARBITUATE SCREEN NEGATIVE (Neg); URINE BENZODIAZEPINES SCREEN NEGATIVE (Neg); URINE CANNABINOID SCREEN NEGATIVE (Neg); URINE COCAINE SCREEN NEGATIVE (Neg); URINE METHADONE SCREEN NEGATIVE (Neg); URINE OPIATE SCREEN POSITIVE (Neg); URINE PHENCYCLIDINE SCREEN NEGATIVE (Neg)
[2022-02-15 00:46] LABS: CLARITY,URINE CLEAR (Clear); COLOR,URINE YELLOW (Yellow); PH,URINE 5.5 (4.8-8.0); UA COLLECTION TYPE CLN CATCH MIDSTREAM
[2022-02-15 00:47] LABS: GLUCOSE, URINE >=1000 mg/dl (Neg); KETONES,URINE NEGATIVE (Neg); PROTEIN,URINE NEGATIVE (Neg)
[2022-02-15 00:48] LABS: LEUKOCYTE ESTERASE ,URINE NEGATIVE (Neg); NITRITES, URINE NEGATIVE (Neg); OCCULT BLOOD,URINE NEGATIVE (Neg); UROBILINOGEN,URINE 0.2 E.U/dL (0.2-1.0)
[2022-02-15 00:49] LABS: RBC,URINE 0-2 /HPF (0-2); WBC,URINE 0-4 /HPF (0-4)
[2022-02-15 00:50] LABS: BACTERIA,URINE FEW /HPF (Neg); MUCUS STRANDS NONE SEEN /LPF (Neg); SQUAMOUS EPITHELIAL CELL,UR FEW /LPF (FEW)
[2022-02-15 03:17] LABS: BASOPHILS % (AUTO) 0.6 % (0-1); EOSINOPHILS # (AUTO) 0.2 X10'3 (0-0.9); EOSINOPHILS % (AUTO) 1.9 % (0-6); HEMATOCRIT 48.2 % (42.0-52.0); HEMOGLOBIN 15.9 g/dl (14.0-17.9); LYMPHOCYTES # (AUTO) 2.2 X10'3 (1.1-4.8); LYMPHOCYTES % (AUTO) 24.7 % (21-51); MEAN CORPUSCULAR HEMOGLOBIN 28.9 PG (27.0-31.0); MEAN CORPUSCULAR VOLUME 87.4 FL (78-98); MEAN PLATELET VOLUME 10.4 FL (7.4-10.4); MONOCYTES % (AUTO) 11.2 % (2-12); NEUTROPHILS # (AUTO) 5.4 X10'3 (1.8-7.7); NEUTROPHILS % (AUTO) 61.6 % (42-75); PLATELET COUNT 200 X10'3 (140-440); RED BLOOD COUNT 5.52 X10'6 (4.70-6.10); RED CELL DISTRIBUTION WIDTH 14.9 % (11.5-14.5); WHITE BLOOD COUNT 8.7 X10'3 (4.5-11.0)
[2022-02-15 03:32] LABS: ALANINE AMINOTRANSFERASE 27 U/L (12-78); ALBUMIN 3.3 G/DL (3.4-5.0); ALBUMIN/GLOBULIN RATIO 0.8 (1.1-1.5); ALKALINE PHOSPHATASE 77 IU/L (46-116); ANION GAP 14 (8-16); ASPARTATE AMINO TRANSFERASE 15 U/L (10-37); BLOOD UREA NITROGEN 26 MG/DL (7-18); CALCIUM 8.7 MG/DL (8.5-10.1); CHLORIDE 106 MMOL/L (99-107); CHOL/HDL RATIO 5.2 (0.00-4.99); CHOLESTEROL 213 MG/DL (0-200); CREATININE 1.53 MG/DL (0.60-1.10); GLUCOSE 194 MG/DL (70-104); HDL CHOLESTEROL 41 MG/DL (35-60); LDL CHOLESTEROL 115 MG/DL (50-100); POTASSIUM 4.6 MMOL/L (3.5-5.1); SODIUM 141 MMOL/L (135-145); TOTAL CARBON DIOXIDE 21.5 MMOL/L (24-32); TOTAL PROTEIN 7.2 G/DL (6.4-8.2); TRIGLYCERIDES 230 MG/DL (20-135); eGFR 47 ML/MIN
[2022-02-15] MEDS: morphine 2 MG/ML inj. syringe IV PRN ×2 (04:04→19:09)
[2022-02-15] MEDS: docusate sod 100mg capsule PO SCH ×2 (08:00→19:08)
[2022-02-15] MEDS: thiamine 100mg tablet PO SCH ×2 (08:00→19:08)
[2022-02-15] MEDS ORDERED: potassium Cl 20 mEq SR tablet PO PRN ×2 (09:20)
[2022-02-15] MEDS ORDERED: potassium CL 10mEq/100ml bag 100 ML IV PRN (09:20)
[2022-02-15] MEDS ORDERED: magnesium Cl slow-release 64mg tablet PO PRN (09:20)
[2022-02-15] MEDS ORDERED: magnesium 4gm in 100ml NS 100 ML IV PRN (09:20)
[2022-02-15] MEDS ORDERED: albuterol 2.5 MG/3 ML nebule NEB PRN (09:25)
--- NOTE | 2022-02-15 10:27 | NUR ---
Speech therapy evaluated the patient prior to any po intake, but the report documentation time was post medication time.
--- NOTE | 2022-02-15 10:56 | NUR ---
REPORT TO PCU NURSE. PATIENT'S BP HAS BEEN ELEVATING THIS MORNING. PAGE TO DR. DIALLO REGARDING BLOOD PRESSURE CONCERN. PREPARING PATIENT FOR TRANSPORT TO PCU. Message: ER ROOM 13-[facility]. B/P HAS BEEN ELEVATING AND IS 174/126 AT PRESENT. HX HYPERTENSION. PATIENT IS IN PROCESS OF BEING TAKEN TO PCU IN 3012C. DO YOU WANT TO RESUME MEDS TODAY OR GIVE SOMETHING FOR THE BP? THANKS, BRIONNA, RN [phone]
[2022-02-15] MEDS: insulin Lispro (HumaLOG) vial - multi-dose SQ SCH ×2 (11:19→21:19)
[2022-02-15 12:47] VITALS: BP 173/100
--- NOTE | 2022-02-15 13:05 | NUR ---
Diabetes consult: Noted pt w/ hx of DM, A1c 12.7. Pt admitted s/p CVA, per DITCH INSPECTOR pt slow in processing and w/ mild confusion. Pt not appropriate for education at this time, will defer until pt more appropriate. Addendum: 02/15/22 at [address] Amended: Links added.
--- NOTE | 2022-02-15 15:19 | NUR ---
Late entry patient admitted to floor via stretcher from ER AOx3 slow to respond patient is in stable condition noted.
[2022-02-15 16:11] VITALS: BP 162/98
[2022-02-15 18:00] VITALS: BP 191/100
[2022-02-15] MEDS: K and/or MAG REPLACEMENT MC SCH (18:51)
[2022-02-15] MEDS: apixaban 5mg tablet PO SCH (19:08)
[2022-02-15] MEDS: lisinopril 10 MG tablet PO SCH (19:08)
[2022-02-15] MEDS: baclofen 10mg tablet PO PRN (19:08)
[2022-02-15] MEDS: carVEDilol 12.5mg tablet PO SCH (19:08)
[2022-02-15] MEDS: insulin glargine (Lantus) pen - multi-dose SQ SCH (21:21)
[2022-02-15 21:45] VITALS: BP 170/99
--- NOTE | 2022-02-15 23:56 | NUR ---
Patient having difficulty urinating with fluids continuous. Bladder scan showed 550. On-call notified. Order for Mendoza cath given. 400 eliminated immediately. Patient stated he felt better. Will continue to monitor.
[2022-02-16] MEDS ORDERED: LIDOcaine 2% 10ml TOPICAL JELLY (Urojet) TP ONE (05:10)
[2022-02-16 07:21] LABS: BASOPHILS # (AUTO) 0.1 X10'3 (0-0.2); BASOPHILS % (AUTO) 0.6 % (0-1); EOSINOPHILS # (AUTO) 0.1 X10'3 (0-0.9); EOSINOPHILS % (AUTO) 1.1 % (0-6); HEMATOCRIT 47.1 % (42.0-52.0); HEMOGLOBIN 15.5 g/dl (14.0-17.9); LYMPHOCYTES # (AUTO) 1.6 X10'3 (1.1-4.8); LYMPHOCYTES % (AUTO) 12.3 % (21-51); MEAN CORPUSCULAR HEMOGLOBIN 28.9 PG (27.0-31.0); MEAN CORPUSCULAR HGB CONC 32.9 g/dL (33.0-36.5); MEAN CORPUSCULAR VOLUME 87.8 FL (78-98); MEAN PLATELET VOLUME 10.1 FL (7.4-10.4); MONOCYTES # (AUTO) 1.5 X10'3 (0-0.9); MONOCYTES % (AUTO) 11.4 % (2-12); NEUTROPHILS # (AUTO) 9.6 X10'3 (1.8-7.7); NEUTROPHILS % (AUTO) 74.6 % (42-75); PLATELET COUNT 185 X10'3 (140-440); RED BLOOD COUNT 5.36 X10'6 (4.70-6.10); WHITE BLOOD COUNT 12.9 X10'3 (4.5-11.0)
[2022-02-16 07:42] LABS: ALANINE AMINOTRANSFERASE 31 U/L (12-78); ALBUMIN 3.1 G/DL (3.4-5.0); ALBUMIN/GLOBULIN RATIO 0.8 (1.1-1.5); ALKALINE PHOSPHATASE 74 IU/L (46-116); ANION GAP 14 (8-16); ASPARTATE AMINO TRANSFERASE 53 U/L (10-37); BILIRUBIN,TOTAL 1.2 MG/DL (0.1-1.0); BLOOD UREA NITROGEN 28 MG/DL (7-18); BUN/CREATININE RATIO 17.6 (5.4-32.0); CALCIUM 8.5 MG/DL (8.5-10.1); CHLORIDE 104 MMOL/L (99-107); CREATININE 1.59 MG/DL (0.60-1.10); GLUCOSE 174 MG/DL (70-104); MAGNESIUM 1.8 MG/DL (1.5-2.4); PHOSPHORUS 2.5 MG/DL (2.3-4.5); POTASSIUM 4.1 MMOL/L (3.5-5.1); SODIUM 138 MMOL/L (135-145); TOTAL CARBON DIOXIDE 20.2 MMOL/L (24-32); eGFR 45 ML/MIN
[2022-02-16] MEDS ORDERED: atorvastatin 20mg tablet PO SCH ×2 (08:00)
[2022-02-16] MEDS ORDERED: non-formulary drug (Ubidecarenone (Coq-10) 300 MG) PO SCH (08:00)
[2022-02-16] MEDS: K and/or MAG REPLACEMENT MC SCH ×2 (08:00→19:57)
[2022-02-16] MEDS: apixaban 5mg tablet PO SCH (08:10)
[2022-02-16] MEDS: amiodarone 200mg tablet PO SCH (08:10)
[2022-02-16] MEDS: aspirin 81mg, enteric-coated 1 TAB TABLET.DR PO SCH (08:10)
[2022-02-16] MEDS: carVEDilol 12.5mg tablet PO SCH ×2 (08:10→20:10)
[2022-02-16] MEDS: spironolactone 25 MG tablet PO SCH (08:10)
[2022-02-16] MEDS: docusate sod 100mg capsule PO SCH ×2 (08:10→20:00)
[2022-02-16] MEDS: lisinopril 10 MG tablet PO SCH ×2 (08:11→20:10)
[2022-02-16] MEDS: pantoprazole 40mg Tablet.DR PO SCH (08:11)
[2022-02-16] MEDS: levoTHYROXINE 100mcg tablet PO SCH (08:11)
[2022-02-16] MEDS: cholecalciferol (vitamin D3) 1,000 unit (25mcg) tablet PO SCH (08:11)
[2022-02-16] MEDS: thiamine 100mg tablet PO SCH ×2 (08:11→20:10)
--- NOTE | 2022-02-16 09:34 | NUR ---
Message: Patient is unable to go to MRI his girth is too large and he is too heavy. Also, he has been diaphoretic intermittently, no fever BP at 0600 was 181/119 Currently his BP is 143/94 he given his meds. Please advise Alissa MARTINEZ ext [phone]
[2022-02-16 11:00] VITALS: BP 130/90
--- NOTE | 2022-02-16 13:29 | NUR ---
PRESSURE ULCER EDUCATION: DEFINITION: A pressure ulcer is an area of skin that breaks down when you stay in one position too long. The constant pressure against the skin reduces the blood flow to that area and the affected tissue dies. CAUSES: "Being bedridden or in a wheelchair "Fragile skin "Having a chronic condition, such as diabetes or vascular disease "Inability to move certain parts of your body without assistance "Older age "Incontinence of urine or stool SYMPTOMS: "A reddened area that DOES NOT turn white when pressed on - this can be the beginning of a pressure ulcer "A blister, deep sore or a crater - these can be advanced pressure ulcers FIRST AID: "Relieve the pressure on this area "Keep the area clean and dry "Call your primary doctor if you see any of the above symptoms "DO NOT massage the area "DO NOT use a donut shaped or ring shaped pillow- these actually interfere with the blood flow and cause complications PREVENTION: "Check for pressure ulcers everyday "Change position at least every two hours to relieve pressure "Use items that help relieve pressure- pillows, sheepskin, foam padding, and powders. "Keep skin clean and dry "Eat healthy well balanced meals "Exercise daily IF YOU SEE ANY OF THESE SYMPTOMS WHILE IN THE HOSPITAL - TELL YOUR NURSE IMMEDIATELY. IF YOU SEE ANY OF THESE SYMPTOMS WHILE AT HOME OR HAVE ANY QUESTIONS OR CONCERNS ABOUT PRESSURE ULCERS - CALL YOUR PRIMARY DOCTOR IMMEDIATELY. Addendum: 02/16/22 at 1330 by Fior Brown RN Amended: Links added.
[2022-02-16] MEDS ORDERED: normal saline 1000ml 1,000 ML IV ONE (13:40)
--- NOTE | 2022-02-16 14:04 | NUR ---
Message: [id number] Garret Riley will be going to CT @ 3;30 FYI he had lunch and they need him NPO. Just wanted to let you know. Alissa MARTINEZ [phone]
--- NOTE | 2022-02-16 14:16 | NUR ---
Message: [phone] Garret Riley Has a pain of 910 please advise Alissa MARTINEZ [id number]
[2022-02-16 15:00] VITALS: BP 147/95
[2022-02-16] MEDS ORDERED: iohexol 350MG/ML 100ml bottle IV ONE (15:38)
[2022-02-16] MEDS: insulin Lispro (HumaLOG) vial - multi-dose SQ SCH (16:27)
--- NOTE | 2022-02-16 16:42 | NUR ---
DM consult: Pt w/ hx DM, A1c 12.7 per EMR. culinary internship attempted visit w/ pt, however pt unavailable. Patient's damon is 12, w/ skin intact per EMR. Will follow up at another time for DM education. Addendum: 02/16/22 at 1642 by Susan Mullins Full Stack Python Developer RD Amended: Links added. Addendum: 02/16/22 at [address] I have reviewed and agree with note by Full Stack Python Developer. MANDA Wu
[2022-02-16 18:00] VITALS: BP 150/101
--- NOTE | 2022-02-16 18:13 | NUR ---
Problems reprioritized. Patient report given, questions answered & plan of care reviewed with Yolette.
[2022-02-16] MEDS: normal saline 1000ml 1,000 ML IV SCH (20:10)
--- NOTE | 2022-02-16 21:09 | NUR ---
girlfriend updated me that sister is driving in to see patient in the a.m. number Rach [phone]
[2022-02-16] MEDS: insulin glargine (Lantus) pen - multi-dose SQ SCH (21:24)
[2022-02-16 22:00] VITALS: BP 149/95
[2022-02-17 02:00] VITALS: BP 153/99
[2022-02-17 06:59] LABS: BASOPHILS % (AUTO) 0.4 % (0-1); EOSINOPHILS # (AUTO) 0.1 X10'3 (0-0.9); EOSINOPHILS % (AUTO) 0.9 % (0-6); HEMATOCRIT 45.2 % (42.0-52.0); LYMPHOCYTES # (AUTO) 1.6 X10'3 (1.1-4.8); LYMPHOCYTES % (AUTO) 15.1 % (21-51); MEAN CORPUSCULAR HEMOGLOBIN 28.9 PG (27.0-31.0); MEAN CORPUSCULAR HGB CONC 33.2 g/dL (33.0-36.5); MEAN CORPUSCULAR VOLUME 87.2 FL (78-98); MEAN PLATELET VOLUME 10.9 FL (7.4-10.4); MONOCYTES # (AUTO) 1.5 X10'3 (0-0.9); MONOCYTES % (AUTO) 14.5 % (2-12); NEUTROPHILS # (AUTO) 7.3 X10'3 (1.8-7.7); NEUTROPHILS % (AUTO) 69.1 % (42-75); PLATELET COUNT 176 X10'3 (140-440); RED BLOOD COUNT 5.19 X10'6 (4.70-6.10); RED CELL DISTRIBUTION WIDTH 14.7 % (11.5-14.5); WHITE BLOOD COUNT 10.6 X10'3 (4.5-11.0)
[2022-02-17 07:26] LABS: ALANINE AMINOTRANSFERASE 27 U/L (12-78); ALBUMIN 2.9 G/DL (3.4-5.0); ALBUMIN/GLOBULIN RATIO 0.7 (1.1-1.5); ALKALINE PHOSPHATASE 70 IU/L (46-116); ANION GAP 15 (8-16); ASPARTATE AMINO TRANSFERASE 44 U/L (10-37); BILIRUBIN,TOTAL 1.4 MG/DL (0.1-1.0); BLOOD UREA NITROGEN 22 MG/DL (7-18); BUN/CREATININE RATIO 16.3 (5.4-32.0); CALCIUM 8.4 MG/DL (8.5-10.1); CHLORIDE 105 MMOL/L (99-107); CREATININE 1.35 MG/DL (0.60-1.10); GLUCOSE 145 MG/DL (70-104); MAGNESIUM 1.8 MG/DL (1.5-2.4); PHOSPHORUS 2.6 MG/DL (2.3-4.5); POTASSIUM 3.8 MMOL/L (3.5-5.1); SODIUM 139 MMOL/L (135-145); TOTAL CARBON DIOXIDE 19.2 MMOL/L (24-32); TOTAL PROTEIN 6.9 G/DL (6.4-8.2); eGFR 54 ML/MIN
[2022-02-17] MEDS: lisinopril 10 MG tablet PO SCH ×2 (07:51→20:00)
[2022-02-17] MEDS: thiamine 100mg tablet PO SCH ×2 (07:51→20:00)
[2022-02-17] MEDS: atorvastatin 20mg tablet PO SCH (07:54)
[2022-02-17] MEDS: spironolactone 25 MG tablet PO SCH (07:55)
[2022-02-17] MEDS: cholecalciferol (vitamin D3) 1,000 unit (25mcg) tablet PO SCH (07:55)
[2022-02-17] MEDS: carVEDilol 12.5mg tablet PO SCH ×2 (07:56→20:00)
[2022-02-17] MEDS: pantoprazole 40mg Tablet.DR PO SCH (07:56)
[2022-02-17] MEDS: aspirin 81mg, enteric-coated 1 TAB TABLET.DR PO SCH (07:57)
[2022-02-17] MEDS: levoTHYROXINE 100mcg tablet PO SCH (07:57)
[2022-02-17] MEDS: amiodarone 200mg tablet PO SCH (07:57)
[2022-02-17] MEDS: docusate sod 100mg capsule PO SCH ×2 (07:58→20:00)
[2022-02-17] MEDS: HYDROcodone/acetaminophen 5mg/325mg tablet PO PRN ×2 (08:00→16:53)
[2022-02-17] MEDS: K and/or MAG REPLACEMENT MC SCH ×2 (08:00→20:00)
[2022-02-17 08:32] LABS: LARGE PLATELETS FEW; PLATELET ESTIMATE NORMAL; STOMATOCYTES FEW
[2022-02-17] MEDS: normal saline 1000ml 1,000 ML IV SCH (10:57)
[2022-02-17 11:00] VITALS: BP 146/98
--- NOTE | 2022-02-17 14:23 | NUR ---
Catheter is an indwelling abdi not a straight cath Addendum: 02/17/22 at 1424 by Alissa Nelson RN Amended: Links added.
[2022-02-17 15:00] VITALS: BP 108/66
[2022-02-17 18:00] VITALS: BP 128/85
--- NOTE | 2022-02-17 18:54 | NUR ---
incorrectly charted BS 1200 137 and 1700 was 201 would not let me change.
[2022-02-17] MEDS: insulin glargine (Lantus) pen - multi-dose SQ SCH (21:10)
[2022-02-17] MEDS: baclofen 10mg tablet PO PRN (21:17)
[2022-02-17 23:00] VITALS: BP 122/89
[2022-02-18] MEDS: normal saline 1000ml 1,000 ML IV SCH ×3 (00:39→21:40)
[2022-02-18] MEDS: HYDROcodone/acetaminophen 5mg/325mg tablet PO PRN ×4 (04:32→20:14)
[2022-02-18 06:00] VITALS: BP 144/83
--- NOTE | 2022-02-18 06:30 | NUR ---
received report from des remy
[2022-02-18] MEDS: spironolactone 25 MG tablet PO SCH (07:25)
[2022-02-18] MEDS: amiodarone 200mg tablet PO SCH (07:25)
[2022-02-18] MEDS: docusate sod 100mg capsule PO SCH ×2 (07:25→20:04)
[2022-02-18] MEDS: lisinopril 10 MG tablet PO SCH ×2 (07:26→21:32)
[2022-02-18] MEDS: aspirin 81mg, enteric-coated 1 TAB TABLET.DR PO SCH (07:26)
[2022-02-18] MEDS: atorvastatin 20mg tablet PO SCH (07:26)
[2022-02-18] MEDS: thiamine 100mg tablet PO SCH ×2 (07:27→20:02)
[2022-02-18] MEDS: pantoprazole 40mg Tablet.DR PO SCH (07:27)
[2022-02-18] MEDS: carVEDilol 12.5mg tablet PO SCH (07:27)
[2022-02-18] MEDS: levoTHYROXINE 100mcg tablet PO SCH (07:27)
[2022-02-18] MEDS: cholecalciferol (vitamin D3) 1,000 unit (25mcg) tablet PO SCH (07:27)
[2022-02-18 07:33] LABS: BASOPHILS # (AUTO) 0.1 X10'3 (0-0.2); BASOPHILS % (AUTO) 0.6 % (0-1); EOSINOPHILS # (AUTO) 0.2 X10'3 (0-0.9); EOSINOPHILS % (AUTO) 2.6 % (0-6); HEMATOCRIT 39.9 % (42.0-52.0); HEMOGLOBIN 13.1 g/dl (14.0-17.9); LYMPHOCYTES # (AUTO) 2.2 X10'3 (1.1-4.8); LYMPHOCYTES % (AUTO) 23.7 % (21-51); MEAN CORPUSCULAR HGB CONC 32.8 g/dL (33.0-36.5); MEAN CORPUSCULAR VOLUME 88.2 FL (78-98); MEAN PLATELET VOLUME 10.2 FL (7.4-10.4); MONOCYTES # (AUTO) 1.5 X10'3 (0-0.9); NEUTROPHILS # (AUTO) 5.3 X10'3 (1.8-7.7); NEUTROPHILS % (AUTO) 57.1 % (42-75); PLATELET COUNT 171 X10'3 (140-440); RED BLOOD COUNT 4.53 X10'6 (4.70-6.10); WHITE BLOOD COUNT 9.2 X10'3 (4.5-11.0)
[2022-02-18 07:57] LABS: ALANINE AMINOTRANSFERASE 23 U/L (12-78); ALBUMIN 2.4 G/DL (3.4-5.0); ALBUMIN/GLOBULIN RATIO 0.6 (1.1-1.5); ALKALINE PHOSPHATASE 59 IU/L (46-116); ANION GAP 12 (8-16); ASPARTATE AMINO TRANSFERASE 31 U/L (10-37); BILIRUBIN,TOTAL 0.9 MG/DL (0.1-1.0); BLOOD UREA NITROGEN 27 MG/DL (7-18); CALCIUM 8.2 MG/DL (8.5-10.1); CHLORIDE 105 MMOL/L (99-107); GLUCOSE 144 MG/DL (70-104); MAGNESIUM 1.9 MG/DL (1.5-2.4); PHOSPHORUS 2.8 MG/DL (2.3-4.5); POTASSIUM 3.9 MMOL/L (3.5-5.1); SODIUM 139 MMOL/L (135-145); TOTAL CARBON DIOXIDE 22.3 MMOL/L (24-32); TOTAL PROTEIN 6.3 G/DL (6.4-8.2); eGFR 48 ML/MIN
[2022-02-18] MEDS: K and/or MAG REPLACEMENT MC SCH ×2 (08:00→20:00)
--- NOTE | 2022-02-18 08:50 | NUR ---
pt not eating breakfast this morning, pt bg is 140, notified md, pt is not a candidate for insulin at this time continue to monitor
[2022-02-18 11:00] VITALS: BP 106/77
[2022-02-18] MEDS: NUT.TX.GLUC.INTOLER,LAC-FR,SOY (GLUCERNA) 237 ML PO SCH ×2 (13:14→18:06)
[2022-02-18] MEDS: insulin Lispro (HumaLOG) vial - multi-dose SQ SCH ×2 (14:44→20:07)
[2022-02-18] MEDS: baclofen 10mg tablet PO PRN (14:49)
[2022-02-18] MEDS: morphine 2 MG/ML inj. syringe IV PRN (15:33)
--- NOTE | 2022-02-18 18:13 | NUR ---
gave report to march,
[2022-02-18 18:30] VITALS: BP 140/89
[2022-02-18] MEDS ORDERED: warfarin 5mg tablet PO ONE (21:00)
[2022-02-18] MEDS: insulin glargine (Lantus) pen - multi-dose SQ SCH (21:24)
[2022-02-18 22:00] VITALS: BP 119/82
[2022-02-19] VITALS (7 sets, daily range): BP systolic 104–174; BP diastolic 67–114
[2022-02-19] MEDS: HYDROcodone/acetaminophen 5mg/325mg tablet PO PRN ×2 (03:51→20:02)
[2022-02-19 06:25] LABS: BASOPHILS # (AUTO) 0.1 X10'3 (0-0.2); BASOPHILS % (AUTO) 0.7 % (0-1); EOSINOPHILS # (AUTO) 0.2 X10'3 (0-0.9); EOSINOPHILS % (AUTO) 3.1 % (0-6); HEMATOCRIT 42.6 % (42.0-52.0); HEMOGLOBIN 14.2 g/dl (14.0-17.9); LYMPHOCYTES # (AUTO) 1.4 X10'3 (1.1-4.8); LYMPHOCYTES % (AUTO) 19.1 % (21-51); MEAN CORPUSCULAR HEMOGLOBIN 29.2 PG (27.0-31.0); MEAN CORPUSCULAR HGB CONC 33.3 g/dL (33.0-36.5); MEAN CORPUSCULAR VOLUME 87.6 FL (78-98); MEAN PLATELET VOLUME 10.4 FL (7.4-10.4); MONOCYTES % (AUTO) 13.5 % (2-12); NEUTROPHILS # (AUTO) 4.7 X10'3 (1.8-7.7); NEUTROPHILS % (AUTO) 63.6 % (42-75); PLATELET COUNT 167 X10'3 (140-440); RED BLOOD COUNT 4.87 X10'6 (4.70-6.10); RED CELL DISTRIBUTION WIDTH 14.7 % (11.5-14.5); WHITE BLOOD COUNT 7.3 X10'3 (4.5-11.0)
[2022-02-19 06:49] LABS: ALANINE AMINOTRANSFERASE 24 U/L (12-78); ALBUMIN 2.5 G/DL (3.4-5.0); ALBUMIN/GLOBULIN RATIO 0.7 (1.1-1.5); ALKALINE PHOSPHATASE 59 IU/L (46-116); ANION GAP 13 (8-16); ASPARTATE AMINO TRANSFERASE 27 U/L (10-37); BILIRUBIN,TOTAL 0.8 MG/DL (0.1-1.0); BLOOD UREA NITROGEN 23 MG/DL (7-18); BUN/CREATININE RATIO 18.4 (5.4-32.0); CALCIUM 8.3 MG/DL (8.5-10.1); CHLORIDE 107 MMOL/L (99-107); CREATININE 1.25 MG/DL (0.60-1.10); GLUCOSE 129 MG/DL (70-104); MAGNESIUM 1.8 MG/DL (1.5-2.4); PHOSPHORUS 2.8 MG/DL (2.3-4.5); POTASSIUM 3.7 MMOL/L (3.5-5.1); SODIUM 140 MMOL/L (135-145); TOTAL CARBON DIOXIDE 20.5 MMOL/L (24-32); TOTAL PROTEIN 6.3 G/DL (6.4-8.2); eGFR 59 ML/MIN
[2022-02-19] MEDS: NUT.TX.GLUC.INTOLER,LAC-FR,SOY (GLUCERNA) 237 ML PO SCH ×3 (08:00→18:00)
[2022-02-19] MEDS: insulin Lispro (HumaLOG) vial - multi-dose SQ SCH ×3 (08:53→20:05)
[2022-02-19] MEDS: K and/or MAG REPLACEMENT MC SCH ×2 (08:56→19:08)
[2022-02-19] MEDS: docusate sod 100mg capsule PO SCH ×2 (08:59→20:00)
[2022-02-19] MEDS: carVEDilol 12.5mg tablet PO SCH ×3 (09:00→20:01)
[2022-02-19] MEDS: aspirin 81mg, enteric-coated 1 TAB TABLET.DR PO SCH (09:00)
[2022-02-19] MEDS: cholecalciferol (vitamin D3) 1,000 unit (25mcg) tablet PO SCH (09:00)
[2022-02-19] MEDS: atorvastatin 20mg tablet PO SCH (09:00)
[2022-02-19] MEDS: lisinopril 10 MG tablet PO SCH ×2 (09:01→20:01)
[2022-02-19] MEDS: spironolactone 25 MG tablet PO SCH (09:01)
[2022-02-19] MEDS: thiamine 100mg tablet PO SCH ×2 (09:01→20:01)
[2022-02-19] MEDS: levoTHYROXINE 100mcg tablet PO SCH (09:01)
[2022-02-19] MEDS: pantoprazole 40mg Tablet.DR PO SCH (09:01)
[2022-02-19] MEDS: amiodarone 200mg tablet PO SCH (09:03)
--- NOTE | 2022-02-19 13:19 | NUR ---
PAGER ID: [phone] MESSAGE: Abdirahman Doc, [id number] b/p is running high, last b/p was . Pls advice. Thanks Buki. MARTINEZ
[2022-02-19] MEDS ORDERED: hydrALAZINE 20mg/ml inj. IV ONE (13:36)
--- NOTE | 2022-02-19 13:45 | NUR ---
Initial: Pt admitted w/ neck pain secondary to multiple falls and acute CVA per EMR. Pt seen by VETERINARY ASSISTANT 02/19 and recommended mechanical chopped and thin liquids diet. Pt is currently on a carbohydrate control/SB6 diet and eating 46% average meals, though 100% last meal. Pt is also receiving Glucerna TIDWM drinking 67% average and meeting 56% estimated energy needs and 81% estimated protein needs. Pt intial scaled wt 125 kg, however bedscale wt now 144kg per EMR. Furthermore, pt's current ht 85in likely inaccurate as pt's past admit ht is 71 in per documentation. LBM 02/17, receiving routine bowel care per EMR. Pt provided written and verbal DM education w/ RD contact information at bedside. No nutrition recommendation implemented at this time pending further PO trends. Will continue to follow. Recommendations: 1. Continue carb control/SB6 diet per VETERINARY ASSISTANT and MD; encourage PO 2. Continue Glucerna TIDWM; Consider changing to Ensure Enlive if poor PO intake persists 3. Routine bowel care Addendum: 02/19/22 at [address] Amended: Links added. Addendum: 02/19/22 at [address] I have reviewed assessment by communications intern
[2022-02-19] MEDS: hydrALAZINE 20mg/ml inj. IV PRN (14:16)
[2022-02-19] MEDS: normal saline 1000ml 1,000 ML IV SCH (16:17)
[2022-02-19] MEDS: morphine 2 MG/ML inj. syringe IV PRN (16:30)
[2022-02-19] MEDS: temazepam 15mg capsule PO PRN (20:03)
[2022-02-19] MEDS ORDERED: warfarin 5mg tablet PO ONE (21:00)
[2022-02-19] MEDS: insulin glargine (Lantus) pen - multi-dose SQ SCH (21:00)
[2022-02-20] VITALS (8 sets, daily range): BP systolic 103–168; BP diastolic 70–104
[2022-02-20] MEDS: normal saline 1000ml 1,000 ML IV SCH ×2 (04:29→18:57)
[2022-02-20] MEDS: morphine 2 MG/ML inj. syringe IV PRN (04:36)
--- NOTE | 2022-02-20 06:34 | NUR ---
Patient in room PCU 3012C. I have received report from JUAN DANIEL and had the opportunity to ask questions and assume patient care.
[2022-02-20 06:40] LABS: MAGNESIUM 1.8 MG/DL (1.5-2.4); PHOSPHORUS 3.2 MG/DL (2.3-4.5)
[2022-02-20] MEDS: K and/or MAG REPLACEMENT MC SCH ×2 (08:00→20:00)
[2022-02-20] MEDS: NUT.TX.GLUC.INTOLER,LAC-FR,SOY (GLUCERNA) 237 ML PO SCH ×3 (08:00→18:59)
[2022-02-20] MEDS: cholecalciferol (vitamin D3) 1,000 unit (25mcg) tablet PO SCH (08:08)
[2022-02-20] MEDS: levoTHYROXINE 100mcg tablet PO SCH (08:09)
[2022-02-20] MEDS: thiamine 100mg tablet PO SCH ×2 (08:09→19:11)
[2022-02-20] MEDS: lisinopril 10 MG tablet PO SCH ×2 (08:09→19:12)
[2022-02-20] MEDS: pantoprazole 40mg Tablet.DR PO SCH (08:10)
[2022-02-20] MEDS: carVEDilol 12.5mg tablet PO SCH ×2 (08:10→20:00)
[2022-02-20] MEDS: aspirin 81mg, enteric-coated 1 TAB TABLET.DR PO SCH (08:10)
[2022-02-20] MEDS: atorvastatin 20mg tablet PO SCH (08:11)
[2022-02-20] MEDS: amiodarone 200mg tablet PO SCH (08:11)
[2022-02-20] MEDS: spironolactone 25 MG tablet PO SCH (08:14)
[2022-02-20] MEDS: docusate sod 100mg capsule PO SCH ×2 (08:14→19:12)
[2022-02-20] MEDS: insulin Lispro (HumaLOG) vial - multi-dose SQ SCH ×2 (10:29→21:41)
[2022-02-20] MEDS: HYDROcodone/acetaminophen 5mg/325mg tablet PO PRN ×2 (13:24→21:28)
[2022-02-20] MEDS: enoxaparin 40mg/0.4ml syringe SQ SCH (13:26)
--- NOTE | 2022-02-20 14:28 | NUR ---
Problems reprioritized. Patient report given, questions answered & plan of care reviewed with JUAN BLOOM.
[2022-02-20] MEDS: diphenhydrAMINE 25mg capsule PO PRN (19:11)
[2022-02-20] MEDS ORDERED: warfarin 7.5mg tablet PO ONE (21:00)
[2022-02-20] MEDS: temazepam 15mg capsule PO PRN (21:26)
[2022-02-20] MEDS: insulin glargine (Lantus) pen - multi-dose SQ SCH (21:39)
[2022-02-21 02:00] VITALS: BP 132/75
[2022-02-21 06:00] VITALS: BP 163/85
[2022-02-21 06:44] LABS: BASOPHILS % (AUTO) 0.6 % (0-1); EOSINOPHILS # (AUTO) 0.3 X10'3 (0-0.9); EOSINOPHILS % (AUTO) 3.5 % (0-6); HEMATOCRIT 42.4 % (42.0-52.0); HEMOGLOBIN 13.9 g/dl (14.0-17.9); LYMPHOCYTES # (AUTO) 1.6 X10'3 (1.1-4.8); LYMPHOCYTES % (AUTO) 22.4 % (21-51); MEAN CORPUSCULAR HEMOGLOBIN 28.8 PG (27.0-31.0); MEAN CORPUSCULAR HGB CONC 32.8 g/dL (33.0-36.5); MEAN CORPUSCULAR VOLUME 87.9 FL (78-98); MEAN PLATELET VOLUME 9.9 FL (7.4-10.4); MONOCYTES % (AUTO) 14.5 % (2-12); NEUTROPHILS # (AUTO) 4.3 X10'3 (1.8-7.7); PLATELET COUNT 185 X10'3 (140-440); RED BLOOD COUNT 4.82 X10'6 (4.70-6.10); WHITE BLOOD COUNT 7.2 X10'3 (4.5-11.0)
[2022-02-21 07:05] LABS: ALANINE AMINOTRANSFERASE 24 U/L (12-78); ALBUMIN 2.4 G/DL (3.4-5.0); ALBUMIN/GLOBULIN RATIO 0.6 (1.1-1.5); ALKALINE PHOSPHATASE 57 IU/L (46-116); ANION GAP 12 (8-16); ASPARTATE AMINO TRANSFERASE 24 U/L (10-37); BILIRUBIN,TOTAL 0.8 MG/DL (0.1-1.0); BLOOD UREA NITROGEN 22 MG/DL (7-18); BUN/CREATININE RATIO 16.4 (5.4-32.0); CALCIUM 8.6 MG/DL (8.5-10.1); CHLORIDE 106 MMOL/L (99-107); CREATININE 1.34 MG/DL (0.60-1.10); GLUCOSE 117 MG/DL (70-104); POTASSIUM 4.4 MMOL/L (3.5-5.1); SODIUM 140 MMOL/L (135-145); TOTAL PROTEIN 6.4 G/DL (6.4-8.2); eGFR 55 ML/MIN
[2022-02-21] MEDS: K and/or MAG REPLACEMENT MC SCH ×2 (08:00→20:00)
[2022-02-21] MEDS: NUT.TX.GLUC.INTOLER,LAC-FR,SOY (GLUCERNA) 237 ML PO SCH ×3 (08:00→14:00)
[2022-02-21] MEDS: normal saline 1000ml 1,000 ML IV SCH ×2 (08:00→21:36)
[2022-02-21] MEDS: enoxaparin 40mg/0.4ml syringe SQ SCH (08:34)
[2022-02-21] MEDS: pantoprazole 40mg Tablet.DR PO SCH (08:34)
[2022-02-21] MEDS: cholecalciferol (vitamin D3) 1,000 unit (25mcg) tablet PO SCH (08:35)
[2022-02-21] MEDS: docusate sod 100mg capsule PO SCH ×2 (08:35→19:31)
[2022-02-21] MEDS: amiodarone 200mg tablet PO SCH (08:35)
[2022-02-21] MEDS: atorvastatin 20mg tablet PO SCH (08:35)
[2022-02-21] MEDS: lisinopril 10 MG tablet PO SCH ×2 (08:35→19:30)
[2022-02-21] MEDS: thiamine 100mg tablet PO SCH ×2 (08:35→19:28)
[2022-02-21] MEDS: levoTHYROXINE 100mcg tablet PO SCH (08:36)
[2022-02-21] MEDS: aspirin 81mg, enteric-coated 1 TAB TABLET.DR PO SCH (08:36)
[2022-02-21] MEDS: carVEDilol 12.5mg tablet PO SCH ×2 (08:36→19:31)
[2022-02-21] MEDS: spironolactone 25 MG tablet PO SCH (08:36)
[2022-02-21 12:00] VITALS: BP 160/85
[2022-02-21] MEDS: insulin Lispro (HumaLOG) vial - multi-dose SQ SCH ×2 (14:08→19:34)
[2022-02-21 15:00] VITALS: BP 160/90
--- NOTE | 2022-02-21 18:35 | NUR ---
Patient in room PCU 3012. I have received report from JUAN Ryder and had the opportunity to ask questions and assume patient care.
[2022-02-21 19:00] VITALS: BP 168/97
[2022-02-21] MEDS ORDERED: warfarin 10mg tablet PO ONE (21:00)
[2022-02-21] MEDS: insulin glargine (Lantus) pen - multi-dose SQ SCH (22:04)
[2022-02-21 23:00] VITALS: BP 162/95
[2022-02-22 03:00] VITALS: BP 179/98
[2022-02-22 06:00] VITALS: BP 166/95
--- NOTE | 2022-02-22 06:25 | NUR ---
Problems reprioritized. Patient report given, questions answered & plan of care reviewed with JUAN Ryder.
[2022-02-22] MEDS: enoxaparin 40mg/0.4ml syringe SQ SCH (07:45)
[2022-02-22] MEDS: pantoprazole 40mg Tablet.DR PO SCH (07:46)
[2022-02-22] MEDS: atorvastatin 20mg tablet PO SCH (07:46)
[2022-02-22] MEDS: cholecalciferol (vitamin D3) 1,000 unit (25mcg) tablet PO SCH (07:46)
[2022-02-22] MEDS: lisinopril 10 MG tablet PO SCH ×2 (07:46→20:02)
[2022-02-22] MEDS: docusate sod 100mg capsule PO SCH ×2 (07:47→20:01)
[2022-02-22] MEDS: thiamine 100mg tablet PO SCH ×2 (07:50→20:02)
[2022-02-22] MEDS: aspirin 81mg, enteric-coated 1 TAB TABLET.DR PO SCH (07:50)
[2022-02-22] MEDS: levoTHYROXINE 100mcg tablet PO SCH (07:50)
[2022-02-22] MEDS: spironolactone 25 MG tablet PO SCH (07:50)
[2022-02-22] MEDS: amiodarone 200mg tablet PO SCH (07:50)
[2022-02-22] MEDS: NUT.TX.GLUC.INTOLER,LAC-FR,SOY (GLUCERNA) 237 ML PO SCH ×3 (08:00→18:00)
[2022-02-22] MEDS: carVEDilol 12.5mg tablet PO SCH ×2 (08:00→20:02)
[2022-02-22] MEDS: K and/or MAG REPLACEMENT MC SCH ×2 (08:00→20:00)
--- NOTE | 2022-02-22 10:30 | NUR ---
Reassessment: Pt continues on Carb Controlled/SB6 diet though no documentation of PO intake since 02/19. Per RN pt is eating mostly 100% of meals but does not like milk to drink. Pt also consuming 100% of ONS. Overall pt meeting est protein and energy needs at this time. LBM 02/17 receiving routine colace. No new nutrition intervention implemented at this time, will continue to monitor. Recommendations: 1. Continue carb control/SB6 diet per HARD TILE SETTER and MD; encourage PO 2. Continue Glucerna TIDWM; Consider changing to Ensure Enlive if poor PO intake persists 3. Routine bowel care 4. Weekly wts Addendum: 02/22/22 at [address] Amended: Links added.
[2022-02-22 11:00] VITALS: BP 156/97
[2022-02-22] MEDS: normal saline 1000ml 1,000 ML IV SCH ×2 (12:00→23:46)
[2022-02-22] MEDS: insulin Lispro (HumaLOG) vial - multi-dose SQ SCH ×2 (14:39→19:44)
[2022-02-22 15:00] VITALS: BP 165/97
[2022-02-22 19:00] VITALS: BP 157/89
[2022-02-22] MEDS: acetaminophen 325mg tablet PO PRN (20:01)
[2022-02-22] MEDS ORDERED: warfarin 5mg tablet PO ONE (21:00)
[2022-02-22] MEDS: insulin glargine (Lantus) pen - multi-dose SQ SCH (21:58)
[2022-02-22] MEDS: hydrALAZINE 20mg/ml inj. IV PRN (22:46)
[2022-02-22 23:00] VITALS: BP 165/95
[2022-02-23 03:00] VITALS: BP 169/63
[2022-02-23 06:00] VITALS: BP 154/100
--- NOTE | 2022-02-23 06:47 | NUR ---
Problems reprioritized. Patient report given, questions answered & plan of care reviewed with JUAN Ryder.
--- NOTE | 2022-02-23 07:07 | NUR ---
Report received from the outgoing nurse patient have a abdi in place. the abdi is bleeding while removed MD notify and charge nurse notify.
--- NOTE | 2022-02-23 07:52 | NUR ---
Message: Room 3012/C .Osvaldo Garret Pt had an order for a abdi cath to D/C while the night RN was trying to remove the abdi.the abdi got stuck patient had been bleeding. pt is in pain .hs was notified. please adv. ext Britni/[phone]
[2022-02-23] MEDS: K and/or MAG REPLACEMENT MC SCH ×2 (08:00→20:00)
[2022-02-23] MEDS: NUT.TX.GLUC.INTOLER,LAC-FR,SOY (GLUCERNA) 237 ML PO SCH ×3 (08:00→18:10)
[2022-02-23] MEDS: enoxaparin 40mg/0.4ml syringe SQ SCH (08:38)
[2022-02-23] MEDS: lisinopril 10 MG tablet PO SCH ×2 (08:38→20:00)
[2022-02-23] MEDS: carVEDilol 12.5mg tablet PO SCH ×2 (08:39→20:00)
[2022-02-23] MEDS: pantoprazole 40mg Tablet.DR PO SCH (08:39)
[2022-02-23] MEDS: thiamine 100mg tablet PO SCH ×2 (08:39→20:42)
[2022-02-23] MEDS: cholecalciferol (vitamin D3) 1,000 unit (25mcg) tablet PO SCH (08:39)
[2022-02-23] MEDS: atorvastatin 20mg tablet PO SCH (08:40)
[2022-02-23] MEDS: spironolactone 25 MG tablet PO SCH (08:40)
[2022-02-23] MEDS: levoTHYROXINE 100mcg tablet PO SCH (08:40)
[2022-02-23] MEDS: amiodarone 200mg tablet PO SCH (08:40)
[2022-02-23] MEDS: aspirin 81mg, enteric-coated 1 TAB TABLET.DR PO SCH (08:40)
[2022-02-23] MEDS: docusate sod 100mg capsule PO SCH ×2 (08:40→20:42)
[2022-02-23] MEDS: insulin Lispro (HumaLOG) vial - multi-dose SQ SCH ×2 (10:23→14:38)
[2022-02-23 11:00] VITALS: BP 170/100
[2022-02-23] MEDS: hydrALAZINE 20mg/ml inj. IV PRN (12:51)
[2022-02-23] MEDS: morphine 2 MG/ML inj. syringe IV PRN ×2 (14:09→17:56)
--- NOTE | 2022-02-23 14:13 | NUR ---
morphine 2 mg PRN administered d/t increased pain in urethra. He did not want norco first.
[2022-02-23] MEDS: normal saline 1000ml 1,000 ML IV SCH (14:32)
[2022-02-23] MEDS: acetaminophen 325mg tablet PO PRN (14:54)
[2022-02-23 15:00] VITALS: BP 166/99
--- NOTE | 2022-02-23 15:09 | NUR ---
Paged Dr Hill Transaction number: [phone] Message: [phone]. Garret Riley. Temp 102.2 oral - Tylenol given. Thx, Britni [phone]
[2022-02-23 16:24] LABS: BASOPHILS % (AUTO) 0.3 % (0-1); EOSINOPHILS # (AUTO) 0.1 X10'3 (0-0.9); EOSINOPHILS % (AUTO) 0.5 % (0-6); HEMATOCRIT 45.3 % (42.0-52.0); HEMOGLOBIN 15.2 g/dl (14.0-17.9); LYMPHOCYTES # (AUTO) 0.3 X10'3 (1.1-4.8); LYMPHOCYTES % (AUTO) 2.6 % (21-51); MEAN CORPUSCULAR HEMOGLOBIN 29.2 PG (27.0-31.0); MEAN CORPUSCULAR HGB CONC 33.6 g/dL (33.0-36.5); MEAN CORPUSCULAR VOLUME 86.8 FL (78-98); MEAN PLATELET VOLUME 10.2 FL (7.4-10.4); MONOCYTES # (AUTO) 0.3 X10'3 (0-0.9); MONOCYTES % (AUTO) 2.7 % (2-12); NEUTROPHILS # (AUTO) 10.7 X10'3 (1.8-7.7); NEUTROPHILS % (AUTO) 93.9 % (42-75); PLATELET COUNT 220 X10'3 (140-440); RED BLOOD COUNT 5.22 X10'6 (4.70-6.10); RED CELL DISTRIBUTION WIDTH 14.4 % (11.5-14.5); WHITE BLOOD COUNT 11.4 X10'3 (4.5-11.0)
[2022-02-23 16:48] LABS: ALANINE AMINOTRANSFERASE 33 U/L (12-78); ALBUMIN/GLOBULIN RATIO 0.7 (1.1-1.5); ALKALINE PHOSPHATASE 71 IU/L (46-116); ANION GAP 9 (8-16); ASPARTATE AMINO TRANSFERASE 35 U/L (10-37); BILIRUBIN,TOTAL 0.8 MG/DL (0.1-1.0); BLOOD UREA NITROGEN 31 MG/DL (7-18); BUN/CREATININE RATIO 19.4 (5.4-32.0); CALCIUM 8.8 MG/DL (8.5-10.1); CHLORIDE 102 MMOL/L (99-107); GLUCOSE 180 MG/DL (70-104); POTASSIUM 4.5 MMOL/L (3.5-5.1); SODIUM 132 MMOL/L (135-145); TOTAL CARBON DIOXIDE 20.6 MMOL/L (24-32); TOTAL PROTEIN 7.4 G/DL (6.4-8.2); eGFR 44 ML/MIN
[2022-02-23 17:00] LABS: CLARITY,URINE BLOODY (Clear); COLOR,URINE RED (Yellow); UA COLLECTION TYPE FOLEY CATH
[2022-02-23 17:01] LABS: RBC,URINE TNTC /HPF (0-2)
[2022-02-23 17:02] LABS: BACTERIA,URINE FEW /HPF (Neg); SQUAMOUS EPITHELIAL CELL,UR NONE SEEN /LPF (FEW); WBC,URINE 0-4 /HPF (0-4)
[2022-02-23] MEDS: cefTRIAXone 1g/NS 100ml IVPB 100 ML IV SCH (18:44)
[2022-02-23 19:00] VITALS: BP 98/54
[2022-02-23] MEDS ORDERED: warfarin 1mg tablet PO ONE (21:00)
[2022-02-23] MEDS: insulin glargine (Lantus) pen - multi-dose SQ SCH (22:19)
[2022-02-23 23:00] VITALS: BP 108/75
[2022-02-24 03:00] VITALS: BP 112/71
[2022-02-24] MEDS: normal saline 1000ml 1,000 ML IV SCH ×2 (03:44→16:38)
--- NOTE | 2022-02-24 05:30 | NUR ---
Patient in bed resting at this time, am-care provided. T 98.7, no more fever noted during my shift. Mendoza bag with dark brown urine notd. Night B/P meds was held due to low SBP. Denies any pain or discomfort. Will continue to monitor.
[2022-02-24 06:00] VITALS: BP 108/66
--- NOTE | 2022-02-24 06:19 | NUR ---
Problems reprioritized. Patient report given, questions answered & plan of care reviewed with JUAN Ryder.
[2022-02-24 06:36] LABS: BASOPHILS # (AUTO) 0.1 X10'3 (0-0.2); BASOPHILS % (AUTO) 0.4 % (0-1); EOSINOPHILS % (AUTO) 0.1 % (0-6); HEMATOCRIT 39.6 % (42.0-52.0); LYMPHOCYTES # (AUTO) 1.2 X10'3 (1.1-4.8); LYMPHOCYTES % (AUTO) 5.2 % (21-51); MEAN CORPUSCULAR HGB CONC 32.8 g/dL (33.0-36.5); MEAN CORPUSCULAR VOLUME 88.4 FL (78-98); MEAN PLATELET VOLUME 10.1 FL (7.4-10.4); MONOCYTES # (AUTO) 2.5 X10'3 (0-0.9); MONOCYTES % (AUTO) 10.4 % (2-12); NEUTROPHILS % (AUTO) 83.9 % (42-75); PLATELET COUNT 201 X10'3 (140-440); RED BLOOD COUNT 4.48 X10'6 (4.70-6.10); RED CELL DISTRIBUTION WIDTH 14.8 % (11.5-14.5); WHITE BLOOD COUNT 23.8 X10'3 (4.5-11.0)
[2022-02-24 06:52] LABS: ALANINE AMINOTRANSFERASE 23 U/L (12-78); ALBUMIN 2.3 G/DL (3.4-5.0); ALBUMIN/GLOBULIN RATIO 0.6 (1.1-1.5); ALKALINE PHOSPHATASE 56 IU/L (46-116); ANION GAP 10 (8-16); ASPARTATE AMINO TRANSFERASE 27 U/L (10-37); BILIRUBIN,TOTAL 0.8 MG/DL (0.1-1.0); BLOOD UREA NITROGEN 39 MG/DL (7-18); BUN/CREATININE RATIO 20.7 (5.4-32.0); CALCIUM 8.3 MG/DL (8.5-10.1); CHLORIDE 102 MMOL/L (99-107); CREATININE 1.88 MG/DL (0.60-1.10); GLUCOSE 198 MG/DL (70-104); MAGNESIUM 1.9 MG/DL (1.5-2.4); PHOSPHORUS 3.9 MG/DL (2.3-4.5); POTASSIUM 4.3 MMOL/L (3.5-5.1); SODIUM 131 MMOL/L (135-145); TOTAL PROTEIN 6.3 G/DL (6.4-8.2); eGFR 37 ML/MIN
[2022-02-24 07:46] LABS: TOTAL CELLS COUNTED 100
[2022-02-24 07:47] LABS: PLATELET ESTIMATE NORMAL
[2022-02-24] MEDS: K and/or MAG REPLACEMENT MC SCH ×2 (08:00→20:00)
[2022-02-24] MEDS: NUT.TX.GLUC.INTOLER,LAC-FR,SOY (GLUCERNA) 237 ML PO SCH ×3 (08:00→18:00)
[2022-02-24] MEDS: lisinopril 10 MG tablet PO SCH ×2 (08:00→08:45)
[2022-02-24] MEDS: cefTRIAXone 1g/NS 100ml IVPB 100 ML IV SCH (08:40)
[2022-02-24] MEDS: atorvastatin 20mg tablet PO SCH (08:43)
[2022-02-24] MEDS: levoTHYROXINE 100mcg tablet PO SCH (08:43)
[2022-02-24] MEDS: aspirin 81mg, enteric-coated 1 TAB TABLET.DR PO SCH (08:45)
[2022-02-24] MEDS: cholecalciferol (vitamin D3) 1,000 unit (25mcg) tablet PO SCH (08:45)
[2022-02-24] MEDS: docusate sod 100mg capsule PO SCH ×2 (08:46→19:56)
[2022-02-24] MEDS: spironolactone 25 MG tablet PO SCH (08:46)
[2022-02-24] MEDS: baclofen 10mg tablet PO PRN (08:46)
[2022-02-24] MEDS: carVEDilol 12.5mg tablet PO SCH ×2 (08:46→19:56)
[2022-02-24] MEDS: amiodarone 200mg tablet PO SCH (08:47)
[2022-02-24] MEDS: thiamine 100mg tablet PO SCH ×2 (08:47→19:56)
[2022-02-24] MEDS: pantoprazole 40mg Tablet.DR PO SCH (08:47)
[2022-02-24] MEDS: insulin Lispro (HumaLOG) vial - multi-dose SQ SCH ×3 (10:00→21:46)
--- NOTE | 2022-02-24 10:37 | NUR ---
Message: Re: Garret Riley. Room: 583. Pt has positive blood cultures. Gram + cocci in pairs and chains. -Britni, [facility] #[phone] -Dr. Hill paged concerning Pt's blood cultures.
[2022-02-24 11:00] VITALS: BP 120/73
[2022-02-24 15:00] VITALS: BP 128/100
[2022-02-24] MEDS: cefepime 1GM/NS ADD-VANTAGE 100 ML IV SCH ×2 (16:15→20:11)
--- NOTE | 2022-02-24 17:29 | NUR ---
patient bladder scan per MD order 513 ml found notified.
[2022-02-24 18:00] VITALS: BP 131/78
[2022-02-24] MEDS: morphine 2 MG/ML inj. syringe IV PRN (18:09)
--- NOTE | 2022-02-24 18:50 | NUR ---
Patient in room PCU 3012. I have received report from RN Britni and had the opportunity to ask questions and assume patient care.
--- NOTE | 2022-02-24 18:55 | NUR ---
New Mendoza placed by Dr. Funk, left to gravity drainage, large amount of blood tinged urine draining, no clots noted.
[2022-02-24] MEDS: insulin glargine (Lantus) pen - multi-dose SQ SCH (21:42)
[2022-02-24 22:00] VITALS: BP 120/78
[2022-02-25 02:00] VITALS: BP 110/79
[2022-02-25] MEDS: normal saline 1000ml 1,000 ML IV SCH ×2 (05:45→18:57)
[2022-02-25 06:00] VITALS: BP 140/86
[2022-02-25 06:12] LABS: BASOPHILS # (AUTO) 0.1 X10'3 (0-0.2); BASOPHILS % (AUTO) 0.4 % (0-1); EOSINOPHILS # (AUTO) 0.1 X10'3 (0-0.9); EOSINOPHILS % (AUTO) 0.4 % (0-6); HEMOGLOBIN 12.6 g/dl (14.0-17.9); MEAN CORPUSCULAR HEMOGLOBIN 28.8 PG (27.0-31.0); MEAN CORPUSCULAR VOLUME 87.2 FL (78-98); MEAN PLATELET VOLUME 10.4 FL (7.4-10.4); MONOCYTES # (AUTO) 2.3 X10'3 (0-0.9); MONOCYTES % (AUTO) 11.6 % (2-12); NEUTROPHILS # (AUTO) 16.1 X10'3 (1.8-7.7); NEUTROPHILS % (AUTO) 82.6 % (42-75); PLATELET COUNT 195 X10'3 (140-440); RED BLOOD COUNT 4.36 X10'6 (4.70-6.10); RED CELL DISTRIBUTION WIDTH 14.9 % (11.5-14.5); WHITE BLOOD COUNT 19.5 X10'3 (4.5-11.0)
[2022-02-25 06:28] LABS: ALANINE AMINOTRANSFERASE 32 U/L (12-78); ALBUMIN 2.3 G/DL (3.4-5.0); ALBUMIN/GLOBULIN RATIO 0.6 (1.1-1.5); ALKALINE PHOSPHATASE 58 IU/L (46-116); ANION GAP 13 (8-16); ASPARTATE AMINO TRANSFERASE 32 U/L (10-37); BILIRUBIN,TOTAL 0.6 MG/DL (0.1-1.0); BLOOD UREA NITROGEN 35 MG/DL (7-18); BUN/CREATININE RATIO 24.8 (5.4-32.0); CALCIUM 8.3 MG/DL (8.5-10.1); CHLORIDE 103 MMOL/L (99-107); CREATININE 1.41 MG/DL (0.60-1.10); GLUCOSE 193 MG/DL (70-104); MAGNESIUM 2.1 MG/DL (1.5-2.4); PHOSPHORUS 2.7 MG/DL (2.3-4.5); POTASSIUM 4.4 MMOL/L (3.5-5.1); SODIUM 135 MMOL/L (135-145); TOTAL CARBON DIOXIDE 19.4 MMOL/L (24-32); TOTAL PROTEIN 6.1 G/DL (6.4-8.2); eGFR 51 ML/MIN
[2022-02-25 06:57] LABS: PLATELET ESTIMATE NORMAL; TOTAL CELLS COUNTED 100
--- NOTE | 2022-02-25 06:59 | NUR ---
Problems reprioritized. Patient report given, questions answered & plan of care reviewed with JUAN Hull.
[2022-02-25] MEDS: K and/or MAG REPLACEMENT MC SCH ×2 (08:00→20:00)
[2022-02-25] MEDS: levoTHYROXINE 100mcg tablet PO SCH (08:06)
[2022-02-25] MEDS: atorvastatin 20mg tablet PO SCH (08:06)
[2022-02-25] MEDS: cefepime 1GM/NS ADD-VANTAGE 100 ML IV SCH ×2 (08:06→20:14)
[2022-02-25] MEDS: cholecalciferol (vitamin D3) 1,000 unit (25mcg) tablet PO SCH (08:06)
[2022-02-25] MEDS: aspirin 81mg, enteric-coated 1 TAB TABLET.DR PO SCH (08:06)
[2022-02-25] MEDS: carVEDilol 12.5mg tablet PO SCH ×2 (08:06→20:11)
[2022-02-25] MEDS: amiodarone 200mg tablet PO SCH (08:06)
[2022-02-25] MEDS: docusate sod 100mg capsule PO SCH ×2 (08:07→20:10)
[2022-02-25] MEDS: lisinopril 10 MG tablet PO SCH ×2 (08:07→20:13)
[2022-02-25] MEDS: pantoprazole 40mg Tablet.DR PO SCH (08:07)
[2022-02-25] MEDS: spironolactone 25 MG tablet PO SCH (08:07)
[2022-02-25] MEDS: thiamine 100mg tablet PO SCH ×2 (08:07→20:10)
[2022-02-25] MEDS: NUT.TX.GLUC.INTOLER,LAC-FR,SOY (GLUCERNA) 237 ML PO SCH ×2 (08:08→18:00)
[2022-02-25] MEDS: insulin Lispro (HumaLOG) vial - multi-dose SQ SCH ×3 (09:34→21:41)
[2022-02-25 11:00] VITALS: BP 131/78
[2022-02-25 15:00] VITALS: BP 98/56
[2022-02-25 18:00] VITALS: BP 120/81
[2022-02-25] MEDS: insulin glargine (Lantus) pen - multi-dose SQ SCH (21:40)
[2022-02-25 22:00] VITALS: BP 130/78
[2022-02-25] MEDS: temazepam 15mg capsule PO PRN (22:46)
[2022-02-25] MEDS: HYDROcodone/acetaminophen 5mg/325mg tablet PO PRN (22:46)
[2022-02-26 02:00] VITALS: BP 113/74
[2022-02-26 06:00] VITALS: BP 120/86
[2022-02-26 06:59] LABS: BASOPHILS # (AUTO) 0.1 X10'3 (0-0.2); BASOPHILS % (AUTO) 0.4 % (0-1); EOSINOPHILS # (AUTO) 0.3 X10'3 (0-0.9); EOSINOPHILS % (AUTO) 2.1 % (0-6); HEMATOCRIT 36.6 % (42.0-52.0); LYMPHOCYTES # (AUTO) 1.7 X10'3 (1.1-4.8); LYMPHOCYTES % (AUTO) 12.4 % (21-51); MEAN CORPUSCULAR HEMOGLOBIN 28.5 PG (27.0-31.0); MEAN CORPUSCULAR HGB CONC 32.8 g/dL (33.0-36.5); MEAN CORPUSCULAR VOLUME 86.9 FL (78-98); MONOCYTES # (AUTO) 1.5 X10'3 (0-0.9); MONOCYTES % (AUTO) 10.9 % (2-12); NEUTROPHILS # (AUTO) 10.1 X10'3 (1.8-7.7); NEUTROPHILS % (AUTO) 74.2 % (42-75); PLATELET COUNT 220 X10'3 (140-440); RED BLOOD COUNT 4.21 X10'6 (4.70-6.10); WHITE BLOOD COUNT 13.6 X10'3 (4.5-11.0)
[2022-02-26 07:28] LABS: ALANINE AMINOTRANSFERASE 47 U/L (12-78); ALBUMIN 2.2 G/DL (3.4-5.0); ALBUMIN/GLOBULIN RATIO 0.6 (1.1-1.5); ALKALINE PHOSPHATASE 60 IU/L (46-116); ANION GAP 8 (8-16); ASPARTATE AMINO TRANSFERASE 43 U/L (10-37); BILIRUBIN,TOTAL 0.5 MG/DL (0.1-1.0); BLOOD UREA NITROGEN 29 MG/DL (7-18); BUN/CREATININE RATIO 25.4 (5.4-32.0); CALCIUM 7.9 MG/DL (8.5-10.1); CHLORIDE 109 MMOL/L (99-107); CREATININE 1.14 MG/DL (0.60-1.10); GLUCOSE 133 MG/DL (70-104); MAGNESIUM 2.5 MG/DL (1.5-2.4); PHOSPHORUS 3.3 MG/DL (2.3-4.5); POTASSIUM 4.6 MMOL/L (3.5-5.1); SODIUM 139 MMOL/L (135-145); TOTAL CARBON DIOXIDE 21.7 MMOL/L (24-32); TOTAL PROTEIN 6.2 G/DL (6.4-8.2); eGFR 66 ML/MIN
[2022-02-26] MEDS: cefepime 1GM/NS ADD-VANTAGE 100 ML IV SCH (07:51)
[2022-02-26] MEDS: NUT.TX.GLUC.INTOLER,LAC-FR,SOY (GLUCERNA) 237 ML PO SCH ×3 (07:52→18:00)
[2022-02-26] MEDS: docusate sod 100mg capsule PO SCH ×2 (07:54→21:12)
[2022-02-26] MEDS: aspirin 81mg, enteric-coated 1 TAB TABLET.DR PO SCH (07:54)
[2022-02-26] MEDS: thiamine 100mg tablet PO SCH ×2 (07:55→21:11)
[2022-02-26] MEDS: atorvastatin 20mg tablet PO SCH (07:55)
[2022-02-26] MEDS: pantoprazole 40mg Tablet.DR PO SCH (07:55)
[2022-02-26] MEDS: carVEDilol 12.5mg tablet PO SCH ×2 (07:55→21:13)
[2022-02-26] MEDS: amiodarone 200mg tablet PO SCH (07:55)
[2022-02-26] MEDS: levoTHYROXINE 100mcg tablet PO SCH (07:55)
[2022-02-26] MEDS: cholecalciferol (vitamin D3) 1,000 unit (25mcg) tablet PO SCH (07:56)
[2022-02-26] MEDS: spironolactone 25 MG tablet PO SCH (07:56)
[2022-02-26] MEDS: lisinopril 10 MG tablet PO SCH ×2 (07:56→21:12)
[2022-02-26] MEDS: K and/or MAG REPLACEMENT MC SCH ×2 (07:57→19:43)
[2022-02-26] MEDS: HYDROcodone/acetaminophen 5mg/325mg tablet PO PRN ×2 (08:57→21:13)
[2022-02-26 11:00] VITALS: BP 144/92
[2022-02-26] MEDS: FLUoxetine 20mg capsule PO SCH (11:35)
[2022-02-26] MEDS: VANCOmycin 1250MG/NS 250ml Bag 250 ML IV SCH ×2 (13:35→14:25)
[2022-02-26] MEDS: insulin Lispro (HumaLOG) vial - multi-dose SQ SCH ×2 (14:39→19:46)
[2022-02-26 15:00] VITALS: BP 128/81
[2022-02-26 18:00] VITALS: BP 145/87
--- NOTE | 2022-02-26 18:41 | NUR ---
Patient in room PCU 3012. I have received report from JUAN Hull and had the opportunity to ask questions and assume patient care. in room visiting.
[2022-02-26] MEDS ORDERED: warfarin 3mg tablet PO ONE (21:00)
[2022-02-26] MEDS: temazepam 15mg capsule PO PRN (21:10)
[2022-02-26] MEDS: diphenhydrAMINE 25mg capsule PO PRN (21:10)
[2022-02-26] MEDS: insulin glargine (Lantus) pen - multi-dose SQ SCH (21:46)
[2022-02-26 22:00] VITALS: BP 142/89
[2022-02-27 02:00] VITALS: BP 151/90
[2022-02-27] MEDS: HYDROcodone/acetaminophen 5mg/325mg tablet PO PRN ×2 (04:48→16:23)
[2022-02-27] MEDS: baclofen 10mg tablet PO PRN (04:49)
[2022-02-27 06:00] VITALS: BP 134/90
--- NOTE | 2022-02-27 06:47 | NUR ---
Problems reprioritized. Patient report given, questions answered & plan of care reviewed with JUAN Hull.
[2022-02-27] MEDS: K and/or MAG REPLACEMENT MC SCH ×2 (08:00→20:00)
[2022-02-27] MEDS: NUT.TX.GLUC.INTOLER,LAC-FR,SOY (GLUCERNA) 237 ML PO SCH ×3 (08:00→18:00)
[2022-02-27 08:43] LABS: BASOPHILS # (AUTO) 0.1 X10'3 (0-0.2); BASOPHILS % (AUTO) 0.9 % (0-1); EOSINOPHILS # (AUTO) 0.3 X10'3 (0-0.9); EOSINOPHILS % (AUTO) 2.3 % (0-6); HEMOGLOBIN 12.4 g/dl (14.0-17.9); LYMPHOCYTES # (AUTO) 2.3 X10'3 (1.1-4.8); LYMPHOCYTES % (AUTO) 16.3 % (21-51); MEAN CORPUSCULAR HEMOGLOBIN 28.6 PG (27.0-31.0); MEAN CORPUSCULAR HGB CONC 32.7 g/dL (33.0-36.5); MEAN CORPUSCULAR VOLUME 87.5 FL (78-98); MEAN PLATELET VOLUME 10.7 FL (7.4-10.4); MONOCYTES # (AUTO) 1.2 X10'3 (0-0.9); MONOCYTES % (AUTO) 8.9 % (2-12); NEUTROPHILS # (AUTO) 9.9 X10'3 (1.8-7.7); NEUTROPHILS % (AUTO) 71.6 % (42-75); PLATELET COUNT 246 X10'3 (140-440); RED BLOOD COUNT 4.34 X10'6 (4.70-6.10); RED CELL DISTRIBUTION WIDTH 14.9 % (11.5-14.5); WHITE BLOOD COUNT 13.8 X10'3 (4.5-11.0)
[2022-02-27 08:56] LABS: ALANINE AMINOTRANSFERASE 58 U/L (12-78); ALBUMIN 2.4 G/DL (3.4-5.0); ALBUMIN/GLOBULIN RATIO 0.5 (1.1-1.5); ALKALINE PHOSPHATASE 69 IU/L (46-116); ANION GAP 9 (8-16); ASPARTATE AMINO TRANSFERASE 48 U/L (10-37); BILIRUBIN,TOTAL 0.6 MG/DL (0.1-1.0); BLOOD UREA NITROGEN 25 MG/DL (7-18); BUN/CREATININE RATIO 22.1 (5.4-32.0); CALCIUM 8.3 MG/DL (8.5-10.1); CHLORIDE 106 MMOL/L (99-107); CREATININE 1.13 MG/DL (0.60-1.10); GLUCOSE 106 MG/DL (70-104); MAGNESIUM 2.1 MG/DL (1.5-2.4); PHOSPHORUS 3.2 MG/DL (2.3-4.5); POTASSIUM 4.6 MMOL/L (3.5-5.1); SODIUM 138 MMOL/L (135-145); TOTAL CARBON DIOXIDE 22.7 MMOL/L (24-32); TOTAL PROTEIN 6.8 G/DL (6.4-8.2); eGFR 66 ML/MIN
[2022-02-27] MEDS: normal saline 1000ml 1,000 ML IV SCH (09:00)
[2022-02-27 09:43] LABS: LARGE PLATELETS FEW; PLATELET ESTIMATE NORMAL
[2022-02-27] MEDS: carVEDilol 12.5mg tablet PO SCH ×2 (10:20→21:15)
[2022-02-27] MEDS: levoTHYROXINE 100mcg tablet PO SCH (10:20)
[2022-02-27] MEDS: lisinopril 10 MG tablet PO SCH ×2 (10:21→21:14)
[2022-02-27] MEDS: atorvastatin 20mg tablet PO SCH (10:21)
[2022-02-27] MEDS: aspirin 81mg, enteric-coated 1 TAB TABLET.DR PO SCH (10:21)
[2022-02-27] MEDS: pantoprazole 40mg Tablet.DR PO SCH (10:22)
[2022-02-27] MEDS: docusate sod 100mg capsule PO SCH ×2 (10:22→21:11)
[2022-02-27] MEDS: amiodarone 200mg tablet PO SCH (10:22)
[2022-02-27] MEDS: FLUoxetine 20mg capsule PO SCH (10:22)
[2022-02-27] MEDS: cholecalciferol (vitamin D3) 1,000 unit (25mcg) tablet PO SCH (10:26)
[2022-02-27] MEDS: thiamine 100mg tablet PO SCH ×2 (10:26→21:11)
[2022-02-27] MEDS: spironolactone 25 MG tablet PO SCH (10:26)
--- NOTE | 2022-02-27 10:26 | NUR ---
Reassessment: Pt continues on Carb Control/SB6 diet w/ varying PO intake, though last 3 meals 75-100%. Pt is currently receiving Glucerna TID and drinking mostly 100% meeting estimated nutrient needs. Per EMR pt has developed sepsis. Recommend double eggs WB and smoothie WL to help meet additional protein and energy needs. Noted pt recent bedscale wt 96.3kg on 02/27, though on 02/25 bedscale wt 139kg per EMR. LBM 02/26, receiving routine Colace per EMR. Will continue to follow. Recommendations: 1. Continue carb control/SB6 diet per STEWARD/STEWARDESS NIGHT and MD; encourage PO 2. Continue Glucerna TIDWM; Consider changing to Ensure Enlive if poor PO intake persists 3. Double eggs WB, smoothie WL 4. Routine bowel care 5. Weekly wts Addendum: 02/27/22 at [address] Amended: Links added. Addendum: 02/27/22 at [address] I have reviewed assessment by international controller
[2022-02-27 11:00] VITALS: BP 154/85
[2022-02-27] MEDS ORDERED: VANCOMYCIN LEVEL IV ONE (12:30)
[2022-02-27] MEDS: VANCOmycin 1250MG/NS 250ml Bag 250 ML IV SCH (13:00)
[2022-02-27 15:00] VITALS: BP 109/74
[2022-02-27 18:00] VITALS: BP 143/84
--- NOTE | 2022-02-27 18:17 | NUR ---
Patient in room PCU 3012. I have received report from JUAN Hull and had the opportunity to ask questions and assume patient care.
[2022-02-27] MEDS: insulin Lispro (HumaLOG) vial - multi-dose SQ SCH (20:07)
[2022-02-27] MEDS ORDERED: warfarin 4mg tablet PO ONE (21:00)
[2022-02-27] MEDS: temazepam 15mg capsule PO PRN (21:11)
[2022-02-27] MEDS: diphenhydrAMINE 25mg capsule PO PRN (21:11)
[2022-02-27 22:00] VITALS: BP 129/79
[2022-02-27] MEDS: insulin glargine (Lantus) pen - multi-dose SQ SCH (22:39)
[2022-02-28] MEDS: baclofen 10mg tablet PO PRN (00:19)
[2022-02-28] MEDS: HYDROcodone/acetaminophen 5mg/325mg tablet PO PRN (00:20)
[2022-02-28] MEDS: vancomycin 1,750 MG in NS 350ml IV soln IV SCH ×2 (01:00→13:23)
[2022-02-28 02:00] VITALS: BP 139/89
[2022-02-28 06:00] VITALS: BP 159/95
[2022-02-28 07:32] LABS: BASOPHILS # (AUTO) 0.1 X10'3 (0-0.2); BASOPHILS % (AUTO) 1.1 % (0-1); EOSINOPHILS # (AUTO) 0.3 X10'3 (0-0.9); EOSINOPHILS % (AUTO) 2.9 % (0-6); HEMATOCRIT 38.9 % (42.0-52.0); HEMOGLOBIN 12.8 g/dl (14.0-17.9); LYMPHOCYTES # (AUTO) 2.2 X10'3 (1.1-4.8); LYMPHOCYTES % (AUTO) 19.4 % (21-51); MEAN CORPUSCULAR HEMOGLOBIN 28.7 PG (27.0-31.0); MEAN CORPUSCULAR VOLUME 86.9 FL (78-98); MEAN PLATELET VOLUME 10.2 FL (7.4-10.4); MONOCYTES # (AUTO) 1.2 X10'3 (0-0.9); MONOCYTES % (AUTO) 10.3 % (2-12); NEUTROPHILS # (AUTO) 7.4 X10'3 (1.8-7.7); NEUTROPHILS % (AUTO) 66.3 % (42-75); PLATELET COUNT 280 X10'3 (140-440); RED BLOOD COUNT 4.48 X10'6 (4.70-6.10); RED CELL DISTRIBUTION WIDTH 14.8 % (11.5-14.5); WHITE BLOOD COUNT 11.2 X10'3 (4.5-11.0)
[2022-02-28 07:53] LABS: ALANINE AMINOTRANSFERASE 58 U/L (12-78); ALBUMIN 2.5 G/DL (3.4-5.0); ALBUMIN/GLOBULIN RATIO 0.6 (1.1-1.5); ALKALINE PHOSPHATASE 65 IU/L (46-116); ANION GAP 9 (8-16); ASPARTATE AMINO TRANSFERASE 44 U/L (10-37); BILIRUBIN,TOTAL 0.6 MG/DL (0.1-1.0); BLOOD UREA NITROGEN 26 MG/DL (7-18); BUN/CREATININE RATIO 22.2 (5.4-32.0); CALCIUM 8.7 MG/DL (8.5-10.1); CHLORIDE 107 MMOL/L (99-107); CREATININE 1.17 MG/DL (0.60-1.10); GLUCOSE 116 MG/DL (70-104); PHOSPHORUS 3.4 MG/DL (2.3-4.5); POTASSIUM 4.9 MMOL/L (3.5-5.1); SODIUM 139 MMOL/L (135-145); TOTAL CARBON DIOXIDE 23.5 MMOL/L (24-32); eGFR 64 ML/MIN
[2022-02-28] MEDS: K and/or MAG REPLACEMENT MC SCH ×2 (08:00→20:00)
[2022-02-28] MEDS: NUT.TX.GLUC.INTOLER,LAC-FR,SOY (GLUCERNA) 237 ML PO SCH ×3 (08:00→18:00)
[2022-02-28] MEDS: aspirin 81mg, enteric-coated 1 TAB TABLET.DR PO SCH (09:14)
[2022-02-28] MEDS: atorvastatin 20mg tablet PO SCH (09:14)
[2022-02-28] MEDS: carVEDilol 12.5mg tablet PO SCH ×2 (09:14→21:17)
[2022-02-28] MEDS: thiamine 100mg tablet PO SCH ×2 (09:15→21:17)
[2022-02-28] MEDS: docusate sod 100mg capsule PO SCH ×2 (09:15→21:54)
[2022-02-28] MEDS: cholecalciferol (vitamin D3) 1,000 unit (25mcg) tablet PO SCH (09:15)
[2022-02-28] MEDS: FLUoxetine 20mg capsule PO SCH (09:15)
[2022-02-28] MEDS: pantoprazole 40mg Tablet.DR PO SCH (09:15)
[2022-02-28] MEDS: spironolactone 25 MG tablet PO SCH (09:16)
[2022-02-28] MEDS: levoTHYROXINE 100mcg tablet PO SCH (09:16)
[2022-02-28] MEDS: lisinopril 10 MG tablet PO SCH ×2 (09:16→21:44)
[2022-02-28] MEDS: amiodarone 200mg tablet PO SCH (09:20)
[2022-02-28 19:00] VITALS: BP 156/99
[2022-02-28] MEDS ORDERED: warfarin 5mg tablet PO ONE (21:00)
[2022-02-28] MEDS: acetaminophen 325mg tablet PO PRN (21:16)
[2022-02-28] MEDS: insulin glargine (Lantus) pen - multi-dose SQ SCH (21:48)
[2022-02-28] MEDS: diphenhydrAMINE 25mg capsule PO PRN (22:09)
[2022-02-28 23:00] VITALS: BP 167/99
[2022-03-01] MEDS: vancomycin 1,750 MG in NS 350ml IV soln IV SCH (00:29)
[2022-03-01 03:00] VITALS: BP 151/86
[2022-03-01 06:00] VITALS: BP 162/98
[2022-03-01] MEDS: NUT.TX.GLUC.INTOLER,LAC-FR,SOY (GLUCERNA) 237 ML PO SCH ×3 (08:00→18:00)
[2022-03-01] MEDS: K and/or MAG REPLACEMENT MC SCH ×2 (08:00→20:00)
[2022-03-01 08:10] LABS: ALANINE AMINOTRANSFERASE 56 U/L (12-78); ALBUMIN 2.5 G/DL (3.4-5.0); ALBUMIN/GLOBULIN RATIO 0.5 (1.1-1.5); ALKALINE PHOSPHATASE 71 IU/L (46-116); ANION GAP 6 (8-16); BILIRUBIN,TOTAL 0.7 MG/DL (0.1-1.0); BLOOD UREA NITROGEN 24 MG/DL (7-18); CALCIUM 8.6 MG/DL (8.5-10.1); CHLORIDE 105 MMOL/L (99-107); CREATININE 1.09 MG/DL (0.60-1.10); GLUCOSE 147 MG/DL (70-104); SODIUM 132 MMOL/L (135-145); TOTAL CARBON DIOXIDE 21.3 MMOL/L (24-32); TOTAL PROTEIN 7.1 G/DL (6.4-8.2); eGFR 69 ML/MIN
[2022-03-01 08:14] LABS: ASPARTATE AMINO TRANSFERASE 55 U/L (10-37); POTASSIUM 5.3 MMOL/L (3.5-5.1)
[2022-03-01 08:59] LABS: BASOPHILS # (AUTO) 0.1 X10'3 (0-0.2); BASOPHILS % (AUTO) 0.8 % (0-1); EOSINOPHILS # (AUTO) 0.3 X10'3 (0-0.9); EOSINOPHILS % (AUTO) 2.4 % (0-6); HEMATOCRIT 40.4 % (42.0-52.0); HEMOGLOBIN 13.5 g/dl (14.0-17.9); LYMPHOCYTES # (AUTO) 2.2 X10'3 (1.1-4.8); LYMPHOCYTES % (AUTO) 17.2 % (21-51); MEAN CORPUSCULAR HEMOGLOBIN 29.2 PG (27.0-31.0); MEAN CORPUSCULAR HGB CONC 33.4 g/dL (33.0-36.5); MEAN CORPUSCULAR VOLUME 87.4 FL (78-98); MEAN PLATELET VOLUME 9.8 FL (7.4-10.4); MONOCYTES # (AUTO) 1.3 X10'3 (0-0.9); MONOCYTES % (AUTO) 9.7 % (2-12); NEUTROPHILS # (AUTO) 9.1 X10'3 (1.8-7.7); NEUTROPHILS % (AUTO) 69.9 % (42-75); PLATELET COUNT 343 X10'3 (140-440); RED BLOOD COUNT 4.62 X10'6 (4.70-6.10); RED CELL DISTRIBUTION WIDTH 14.6 % (11.5-14.5)
[2022-03-01] MEDS: normal saline 1000ml 1,000 ML IV SCH (09:00)
[2022-03-01] MEDS: cholecalciferol (vitamin D3) 1,000 unit (25mcg) tablet PO SCH (09:45)
[2022-03-01] MEDS: aspirin 81mg, enteric-coated 1 TAB TABLET.DR PO SCH (09:45)
[2022-03-01] MEDS: atorvastatin 20mg tablet PO SCH (09:46)
[2022-03-01] MEDS: pantoprazole 40mg Tablet.DR PO SCH (09:46)
[2022-03-01] MEDS: thiamine 100mg tablet PO SCH ×2 (09:46→19:38)
[2022-03-01] MEDS: levoTHYROXINE 100mcg tablet PO SCH (09:46)
[2022-03-01] MEDS: carVEDilol 12.5mg tablet PO SCH ×2 (09:47→19:39)
[2022-03-01] MEDS: spironolactone 25 MG tablet PO SCH (09:47)
[2022-03-01] MEDS: lisinopril 10 MG tablet PO SCH ×2 (09:47→19:38)
[2022-03-01] MEDS: docusate sod 100mg capsule PO SCH ×2 (09:47→19:38)
[2022-03-01] MEDS: amiodarone 200mg tablet PO SCH (09:47)
[2022-03-01] MEDS: FLUoxetine 20mg capsule PO SCH (09:48)
[2022-03-01] MEDS ORDERED: VANCOMYCIN LEVEL IV ONE (12:30)
[2022-03-01] MEDS: HYDROcodone/acetaminophen 5mg/325mg tablet PO PRN (13:18)
[2022-03-01 13:32] VITALS: BP 123/79
[2022-03-01 18:00] VITALS: BP 133/85
--- NOTE | 2022-03-01 18:31 | NUR ---
Problems reprioritized. Patient report given, questions answered & plan of care reviewed with Mike MARTINEZ.
--- NOTE | 2022-03-01 19:05 | NUR ---
Patient in room ALEK 344. I have received report from JUAN Olsen and had the opportunity to ask questions and assume patient care. Patient resting in bed, in no apparent distress. No needs at this time.
[2022-03-01] MEDS: insulin Lispro (HumaLOG) vial - multi-dose SQ SCH (19:49)
[2022-03-01] MEDS ORDERED: warfarin 3mg tablet PO ONE (21:00)
[2022-03-01] MEDS: insulin glargine (Lantus) pen - multi-dose SQ SCH (21:32)
[2022-03-02 00:52] VITALS: BP 131/94
[2022-03-02] MEDS: HYDROcodone/acetaminophen 5mg/325mg tablet PO PRN ×2 (03:27→11:08)
--- NOTE | 2022-03-02 06:34 | NUR ---
Problems reprioritized. Patient report given, questions answered & plan of care reviewed with JUAN Patel.
--- NOTE | 2022-03-02 07:13 | NUR ---
Spoke with specialist Good who was rounding on her pt. on the floor. She is trying to anticipate discharge. Due to recent urethral trauma and recent CVA pt. will need a good amount of time for voiding trial if f/c is to be remove in hospital before DC. Pt. does not wish to have f/c removed at this time and MD in agreement that more time is needed for urethra to heal although she notes some improvement. If placement is found and a more immediate discharge is to occur, Good would like catheter to remain in place for discharge and for pt. to undergo voiding trial at accepting facility. Will update CM during their rounds.
[2022-03-02 07:54] LABS: BASOPHILS # (AUTO) 0.1 X10'3 (0-0.2); BASOPHILS % (AUTO) 1.2 % (0-1); EOSINOPHILS # (AUTO) 0.3 X10'3 (0-0.9); EOSINOPHILS % (AUTO) 2.6 % (0-6); HEMATOCRIT 41.3 % (42.0-52.0); HEMOGLOBIN 13.6 g/dl (14.0-17.9); LYMPHOCYTES # (AUTO) 2.6 X10'3 (1.1-4.8); LYMPHOCYTES % (AUTO) 23.7 % (21-51); MEAN CORPUSCULAR HEMOGLOBIN 28.8 PG (27.0-31.0); MEAN CORPUSCULAR HGB CONC 32.9 g/dL (33.0-36.5); MEAN CORPUSCULAR VOLUME 87.5 FL (78-98); MEAN PLATELET VOLUME 9.5 FL (7.4-10.4); MONOCYTES # (AUTO) 1.3 X10'3 (0-0.9); MONOCYTES % (AUTO) 11.5 % (2-12); NEUTROPHILS # (AUTO) 6.8 X10'3 (1.8-7.7); PLATELET COUNT 387 X10'3 (140-440); RED BLOOD COUNT 4.71 X10'6 (4.70-6.10); RED CELL DISTRIBUTION WIDTH 14.8 % (11.5-14.5); WHITE BLOOD COUNT 11.1 X10'3 (4.5-11.0)
[2022-03-02 08:00] VITALS: BP 131/89
[2022-03-02] MEDS: NUT.TX.GLUC.INTOLER,LAC-FR,SOY (GLUCERNA) 237 ML PO SCH ×3 (08:00→18:28)
[2022-03-02] MEDS: K and/or MAG REPLACEMENT MC SCH ×2 (08:00→20:00)
[2022-03-02 08:18] LABS: ALANINE AMINOTRANSFERASE 59 U/L (12-78); ALBUMIN 2.7 G/DL (3.4-5.0); ALBUMIN/GLOBULIN RATIO 0.6 (1.1-1.5); ALKALINE PHOSPHATASE 69 IU/L (46-116); ANION GAP 12 (8-16); ASPARTATE AMINO TRANSFERASE 36 U/L (10-37); BILIRUBIN,TOTAL 0.5 MG/DL (0.1-1.0); BLOOD UREA NITROGEN 27 MG/DL (7-18); BUN/CREATININE RATIO 20.5 (5.4-32.0); CALCIUM 9.1 MG/DL (8.5-10.1); CHLORIDE 102 MMOL/L (99-107); CREATININE 1.32 MG/DL (0.60-1.10); GLUCOSE 134 MG/DL (70-104); SODIUM 136 MMOL/L (135-145); TOTAL CARBON DIOXIDE 22.4 MMOL/L (24-32); TOTAL PROTEIN 7.4 G/DL (6.4-8.2); eGFR 56 ML/MIN
[2022-03-02 09:58] VITALS: BP 113/56
[2022-03-02] MEDS: atorvastatin 20mg tablet PO SCH (10:44)
[2022-03-02] MEDS: thiamine 100mg tablet PO SCH ×2 (10:44→19:55)
[2022-03-02] MEDS: spironolactone 25 MG tablet PO SCH (10:45)
[2022-03-02] MEDS: cholecalciferol (vitamin D3) 1,000 unit (25mcg) tablet PO SCH (10:45)
[2022-03-02] MEDS: pantoprazole 40mg Tablet.DR PO SCH (10:46)
[2022-03-02] MEDS: amiodarone 200mg tablet PO SCH (10:46)
[2022-03-02] MEDS: levoTHYROXINE 100mcg tablet PO SCH (10:46)
[2022-03-02] MEDS: docusate sod 100mg capsule PO SCH ×2 (10:46→19:56)
[2022-03-02] MEDS: aspirin 81mg, enteric-coated 1 TAB TABLET.DR PO SCH (10:48)
[2022-03-02] MEDS: FLUoxetine 20mg capsule PO SCH (10:48)
[2022-03-02] MEDS: carVEDilol 12.5mg tablet PO SCH ×2 (10:51→19:55)
[2022-03-02 11:00] VITALS: BP 144/84
[2022-03-02] MEDS: insulin Lispro (HumaLOG) vial - multi-dose SQ SCH ×3 (11:04→19:53)
[2022-03-02] MEDS: lisinopril 10 MG tablet PO SCH ×2 (12:50→19:56)
--- NOTE | 2022-03-02 15:27 | NUR ---
PAGER ID: [phone] MESSAGE: Garret Osvaldo 344A BG high at noon 222. Pt. level 5 on insulin protocol. Insulin missed r/t other pt. care. It is late now. What do you want me to do? Amanda [phone]
--- NOTE | 2022-03-02 18:10 | NUR ---
Patient in room ALEK 344. I have received report from JUAN Patel and had the opportunity to ask questions and assume patient care.
--- NOTE | 2022-03-02 18:27 | NUR ---
Gave report to Tonie MARTINEZ
[2022-03-02 20:00] VITALS: BP 122/63
[2022-03-02] MEDS ORDERED: warfarin 5mg tablet PO ONE (21:00)
[2022-03-02] MEDS: insulin glargine (Lantus) pen - multi-dose SQ SCH (21:45)
[2022-03-03 00:01] VITALS: BP 117/73
--- NOTE | 2022-03-03 06:19 | NUR ---
Problems reprioritized. Patient report given, questions answered & plan of care reviewed with JUAN Mohr.
--- NOTE | 2022-03-03 06:30 | NUR ---
Patient in room ALEK 344. I have received report from Tonie MARTINEZ and had the opportunity to ask questions and assume patient care.
[2022-03-03 07:09] LABS: BASOPHILS # (AUTO) 0.1 X10'3 (0-0.2); BASOPHILS % (AUTO) 0.8 % (0-1); EOSINOPHILS # (AUTO) 0.4 X10'3 (0-0.9); EOSINOPHILS % (AUTO) 3.9 % (0-6); HEMOGLOBIN 13.5 g/dl (14.0-17.9); LYMPHOCYTES # (AUTO) 2.1 X10'3 (1.1-4.8); LYMPHOCYTES % (AUTO) 20.5 % (21-51); MEAN CORPUSCULAR HEMOGLOBIN 29.6 PG (27.0-31.0); MEAN CORPUSCULAR HGB CONC 33.7 g/dL (33.0-36.5); MEAN CORPUSCULAR VOLUME 87.6 FL (78-98); MEAN PLATELET VOLUME 10.1 FL (7.4-10.4); MONOCYTES # (AUTO) 1.2 X10'3 (0-0.9); MONOCYTES % (AUTO) 11.3 % (2-12); NEUTROPHILS # (AUTO) 6.6 X10'3 (1.8-7.7); NEUTROPHILS % (AUTO) 63.5 % (42-75); PLATELET COUNT 358 X10'3 (140-440); RED BLOOD COUNT 4.56 X10'6 (4.70-6.10); WHITE BLOOD COUNT 10.3 X10'3 (4.5-11.0)
[2022-03-03] MEDS ORDERED: VANCOMYCIN LEVEL IV ONE (07:30)
[2022-03-03 07:39] LABS: ALANINE AMINOTRANSFERASE 57 U/L (12-78); ALBUMIN 2.6 G/DL (3.4-5.0); ALBUMIN/GLOBULIN RATIO 0.6 (1.1-1.5); ALKALINE PHOSPHATASE 65 IU/L (46-116); ANION GAP 8 (8-16); ASPARTATE AMINO TRANSFERASE 38 U/L (10-37); BILIRUBIN,TOTAL 0.5 MG/DL (0.1-1.0); BLOOD UREA NITROGEN 28 MG/DL (7-18); BUN/CREATININE RATIO 21.4 (5.4-32.0); CALCIUM 8.8 MG/DL (8.5-10.1); CHLORIDE 106 MMOL/L (99-107); CREATININE 1.31 MG/DL (0.60-1.10); GLUCOSE 115 MG/DL (70-104); POTASSIUM 4.8 MMOL/L (3.5-5.1); SODIUM 137 MMOL/L (135-145); TOTAL CARBON DIOXIDE 23.1 MMOL/L (24-32); TOTAL PROTEIN 6.9 G/DL (6.4-8.2); eGFR 56 ML/MIN
[2022-03-03] MEDS: K and/or MAG REPLACEMENT MC SCH ×2 (08:00→20:00)
[2022-03-03] MEDS: levoTHYROXINE 100mcg tablet PO SCH (08:08)
[2022-03-03] MEDS: atorvastatin 20mg tablet PO SCH (08:09)
[2022-03-03] MEDS: thiamine 100mg tablet PO SCH ×2 (08:10→20:52)
[2022-03-03] MEDS: FLUoxetine 20mg capsule PO SCH (08:12)
[2022-03-03] MEDS: lisinopril 10 MG tablet PO SCH ×2 (08:12→20:51)
[2022-03-03] MEDS: spironolactone 25 MG tablet PO SCH (08:12)
[2022-03-03] MEDS: cholecalciferol (vitamin D3) 1,000 unit (25mcg) tablet PO SCH (08:12)
[2022-03-03] MEDS: docusate sod 100mg capsule PO SCH ×2 (08:13→20:51)
[2022-03-03] MEDS: amiodarone 200mg tablet PO SCH (08:13)
[2022-03-03] MEDS: aspirin 81mg, enteric-coated 1 TAB TABLET.DR PO SCH (08:13)
[2022-03-03] MEDS: carVEDilol 12.5mg tablet PO SCH ×2 (08:13→20:51)
[2022-03-03] MEDS: pantoprazole 40mg Tablet.DR PO SCH (08:13)
[2022-03-03] MEDS: NUT.TX.GLUC.INTOLER,LAC-FR,SOY (GLUCERNA) 237 ML PO SCH ×3 (08:27→18:00)
[2022-03-03] MEDS: linezolid 600mg tablet PO SCH ×2 (08:28→20:51)
[2022-03-03] MEDS: insulin Lispro (HumaLOG) vial - multi-dose SQ SCH ×3 (08:34→18:53)
[2022-03-03] MEDS: normal saline 1000ml 1,000 ML IV SCH (09:00)
[2022-03-03 10:56] VITALS: BP 124/83
--- NOTE | 2022-03-03 11:19 | NUR ---
PatiStates last bowel movement was yesterday afternoon Addendum: 03/03/22 at 1120 by Cody MERCADO Amended: Links added.
--- NOTE | 2022-03-03 12:30 | NUR ---
Noted pt started on Zyvox. Pt seen at bedside for written and verbal low tyramine nutrition therapy education. Pt denies questions at this time. RD contact information provided and pt encouraged to reach out if needed. Pt endorses a good appetite and requests no turkey at this time, d/w dietary. Pt denies food allergies. Will continue to follow. Addendum: 03/03/22 at [address] Amended: Links added.
--- NOTE | 2022-03-03 15:01 | NUR ---
Student Medication Administration: For all medication-pass' in the time frame of 7317-7385, all medication were reviewed, dispensed, administered and documented per hospital policy by Cody TRAN. Problems reprioritized. Patient report given, questions answered & plan of care reviewed with Cody TRAN.
--- NOTE | 2022-03-03 18:19 | NUR ---
Problems reprioritized. Patient report given, questions answered & plan of care reviewed with CA MARTINEZ.
[2022-03-03 20:00] VITALS: BP 144/83
[2022-03-03] MEDS: HYDROcodone/acetaminophen 5mg/325mg tablet PO PRN (20:54)
[2022-03-03] MEDS: insulin glargine (Lantus) pen - multi-dose SQ SCH (22:03)
[2022-03-04] VITALS: BP 129/79
--- NOTE | 2022-03-04 06:21 | NUR ---
Problems reprioritized. Patient report given, questions answered & plan of care reviewed with Fani MARTINEZ. Addendum: 03/04/22 at 0621 by Melissa Pitts RN Amended: Links added.
[2022-03-04 06:56] LABS: BASOPHILS # (AUTO) 0.1 X10'3 (0-0.2); BASOPHILS % (AUTO) 1.1 % (0-1); EOSINOPHILS # (AUTO) 0.3 X10'3 (0-0.9); EOSINOPHILS % (AUTO) 3.2 % (0-6); HEMATOCRIT 41.1 % (42.0-52.0); HEMOGLOBIN 13.7 g/dl (14.0-17.9); LYMPHOCYTES # (AUTO) 2.2 X10'3 (1.1-4.8); LYMPHOCYTES % (AUTO) 25.4 % (21-51); MEAN CORPUSCULAR HEMOGLOBIN 28.9 PG (27.0-31.0); MEAN CORPUSCULAR HGB CONC 33.3 g/dL (33.0-36.5); MEAN CORPUSCULAR VOLUME 86.8 FL (78-98); MEAN PLATELET VOLUME 9.5 FL (7.4-10.4); MONOCYTES # (AUTO) 0.9 X10'3 (0-0.9); MONOCYTES % (AUTO) 10.3 % (2-12); NEUTROPHILS # (AUTO) 5.1 X10'3 (1.8-7.7); PLATELET COUNT 396 X10'3 (140-440); RED BLOOD COUNT 4.73 X10'6 (4.70-6.10); RED CELL DISTRIBUTION WIDTH 14.8 % (11.5-14.5); WHITE BLOOD COUNT 8.6 X10'3 (4.5-11.0)
[2022-03-04 07:09] LABS: ALANINE AMINOTRANSFERASE 63 U/L (12-78); ALBUMIN 2.7 G/DL (3.4-5.0); ALBUMIN/GLOBULIN RATIO 0.6 (1.1-1.5); ALKALINE PHOSPHATASE 71 IU/L (46-116); ANION GAP 10 (8-16); ASPARTATE AMINO TRANSFERASE 39 U/L (10-37); BILIRUBIN,TOTAL 0.5 MG/DL (0.1-1.0); BLOOD UREA NITROGEN 28 MG/DL (7-18); BUN/CREATININE RATIO 18.4 (5.4-32.0); CALCIUM 9.2 MG/DL (8.5-10.1); CHLORIDE 102 MMOL/L (99-107); CREATININE 1.52 MG/DL (0.60-1.10); GLUCOSE 116 MG/DL (70-104); POTASSIUM 4.8 MMOL/L (3.5-5.1); SODIUM 136 MMOL/L (135-145); TOTAL CARBON DIOXIDE 24.2 MMOL/L (24-32); TOTAL PROTEIN 6.9 G/DL (6.4-8.2); eGFR 47 ML/MIN
[2022-03-04] MEDS: levoTHYROXINE 100mcg tablet PO SCH (07:20)
[2022-03-04] MEDS: docusate sod 100mg capsule PO SCH ×2 (07:20→19:49)
[2022-03-04] MEDS: cholecalciferol (vitamin D3) 1,000 unit (25mcg) tablet PO SCH (07:21)
[2022-03-04] MEDS: FLUoxetine 20mg capsule PO SCH (07:21)
[2022-03-04] MEDS: thiamine 100mg tablet PO SCH ×2 (07:21→19:49)
[2022-03-04] MEDS: pantoprazole 40mg Tablet.DR PO SCH (07:21)
[2022-03-04] MEDS: aspirin 81mg, enteric-coated 1 TAB TABLET.DR PO SCH (07:21)
[2022-03-04] MEDS: atorvastatin 20mg tablet PO SCH (07:24)
[2022-03-04 07:28] VITALS: BP 138/90
[2022-03-04] MEDS: lisinopril 10 MG tablet PO SCH ×2 (07:29→19:52)
[2022-03-04] MEDS: carVEDilol 12.5mg tablet PO SCH ×2 (07:29→19:49)
[2022-03-04] MEDS: amiodarone 200mg tablet PO SCH (07:29)
[2022-03-04] MEDS: spironolactone 25 MG tablet PO SCH (07:30)
[2022-03-04] MEDS: linezolid 600mg tablet PO SCH ×2 (07:31→19:49)
[2022-03-04] MEDS: K and/or MAG REPLACEMENT MC SCH ×2 (08:00→20:00)
[2022-03-04] MEDS: NUT.TX.GLUC.INTOLER,LAC-FR,SOY (GLUCERNA) 237 ML PO SCH ×3 (08:00→18:00)
[2022-03-04] MEDS: insulin Lispro (HumaLOG) vial - multi-dose SQ SCH ×3 (09:26→19:38)
[2022-03-04 11:00] VITALS: BP 103/55
[2022-03-04] MEDS: HYDROcodone/acetaminophen 5mg/325mg tablet PO PRN ×2 (15:25→19:48)
[2022-03-04 18:00] VITALS: BP 126/85
--- NOTE | 2022-03-04 18:08 | NUR ---
Patient in room ALEK 344A. I have received report from JUAN Mohr and had the opportunity to ask questions and assume patient care.
--- NOTE | 2022-03-04 18:22 | NUR ---
Problems reprioritized. Patient report given, questions answered & plan of care reviewed with Tamera MARTINEZ.
[2022-03-04] MEDS ORDERED: warfarin 3mg tablet PO ONE (21:00)
[2022-03-04] MEDS: insulin glargine (Lantus) pen - multi-dose SQ SCH (21:18)
[2022-03-05] VITALS: BP 114/82
--- NOTE | 2022-03-05 06:12 | NUR ---
Problems reprioritized. Patient report given, questions answered & plan of care reviewed with JUAN Mohr.
[2022-03-05 06:17] LABS: BASOPHILS # (AUTO) 0.1 X10'3 (0-0.2); EOSINOPHILS # (AUTO) 0.3 X10'3 (0-0.9); EOSINOPHILS % (AUTO) 3.2 % (0-6); HEMATOCRIT 40.8 % (42.0-52.0); HEMOGLOBIN 13.5 g/dl (14.0-17.9); LYMPHOCYTES # (AUTO) 2.1 X10'3 (1.1-4.8); LYMPHOCYTES % (AUTO) 26.4 % (21-51); MEAN CORPUSCULAR HEMOGLOBIN 28.8 PG (27.0-31.0); MEAN CORPUSCULAR HGB CONC 33.1 g/dL (33.0-36.5); MEAN CORPUSCULAR VOLUME 86.8 FL (78-98); MEAN PLATELET VOLUME 9.4 FL (7.4-10.4); MONOCYTES # (AUTO) 0.8 X10'3 (0-0.9); MONOCYTES % (AUTO) 9.6 % (2-12); NEUTROPHILS # (AUTO) 4.8 X10'3 (1.8-7.7); NEUTROPHILS % (AUTO) 59.8 % (42-75); PLATELET COUNT 409 X10'3 (140-440); RED CELL DISTRIBUTION WIDTH 14.7 % (11.5-14.5)
[2022-03-05 06:47] LABS: ALANINE AMINOTRANSFERASE 60 U/L (12-78); ALBUMIN 2.8 G/DL (3.4-5.0); ALBUMIN/GLOBULIN RATIO 0.7 (1.1-1.5); ALKALINE PHOSPHATASE 73 IU/L (46-116); ANION GAP 8 (8-16); ASPARTATE AMINO TRANSFERASE 40 U/L (10-37); BILIRUBIN,TOTAL 0.6 MG/DL (0.1-1.0); BLOOD UREA NITROGEN 31 MG/DL (7-18); CALCIUM 8.8 MG/DL (8.5-10.1); CHLORIDE 105 MMOL/L (99-107); CREATININE 1.41 MG/DL (0.60-1.10); GLUCOSE 106 MG/DL (70-104); POTASSIUM 4.7 MMOL/L (3.5-5.1); SODIUM 137 MMOL/L (135-145); TOTAL CARBON DIOXIDE 23.6 MMOL/L (24-32); TOTAL PROTEIN 7.1 G/DL (6.4-8.2); eGFR 51 ML/MIN
[2022-03-05 07:00] VITALS: BP 132/99
[2022-03-05 07:36] VITALS: BP 143/99
[2022-03-05] MEDS: amiodarone 200mg tablet PO SCH (07:38)
[2022-03-05] MEDS: spironolactone 25 MG tablet PO SCH (07:38)
[2022-03-05] MEDS: docusate sod 100mg capsule PO SCH ×2 (07:38→19:15)
[2022-03-05] MEDS: aspirin 81mg, enteric-coated 1 TAB TABLET.DR PO SCH (07:39)
[2022-03-05] MEDS: carVEDilol 12.5mg tablet PO SCH ×2 (07:39→19:15)
[2022-03-05] MEDS: pantoprazole 40mg Tablet.DR PO SCH (07:40)
[2022-03-05] MEDS: atorvastatin 20mg tablet PO SCH (07:40)
[2022-03-05] MEDS: FLUoxetine 20mg capsule PO SCH (07:41)
[2022-03-05] MEDS: cholecalciferol (vitamin D3) 1,000 unit (25mcg) tablet PO SCH (07:42)
[2022-03-05] MEDS: thiamine 100mg tablet PO SCH ×2 (07:42→19:18)
[2022-03-05] MEDS: levoTHYROXINE 100mcg tablet PO SCH (07:42)
[2022-03-05] MEDS: lisinopril 10 MG tablet PO SCH ×2 (07:43→19:18)
[2022-03-05] MEDS: linezolid 600mg tablet PO SCH ×2 (07:44→19:17)
[2022-03-05] MEDS: HYDROcodone/acetaminophen 5mg/325mg tablet PO PRN ×2 (07:45→17:08)
--- NOTE | 2022-03-05 07:50 | NUR ---
Medication administration supervised by Clinical Delivery Person
[2022-03-05] MEDS: K and/or MAG REPLACEMENT MC SCH ×2 (08:00→19:24)
[2022-03-05] MEDS: NUT.TX.GLUC.INTOLER,LAC-FR,SOY (GLUCERNA) 237 ML PO SCH ×3 (08:13→18:41)
[2022-03-05] MEDS: insulin Lispro (HumaLOG) vial - multi-dose SQ SCH ×2 (08:28→13:45)
[2022-03-05] MEDS: normal saline 1000ml 1,000 ML IV SCH (09:00)
[2022-03-05 11:00] VITALS: BP 116/85
--- NOTE | 2022-03-05 12:00 | NUR ---
Reassessment: Pt continues on Carb controlled/SB6 diet w/ mostly 100% intake of meals as well as 100% of ONS, also receiving smoothie WL and double eggs WB. Overall pt meeting est nutrient needs at this time. Noted wt discrepancy in EMR, previously around 140kg and now 83kg most recent bed scale wt. TC to RN who states pt more likely around 140kg. LBM 03/02 receiving routine bowel care. No change to recommendations at this time, will continue to monitor. Recommendations: 1. Continue carb control/SB6 diet per PATIENT ASSESSMENT COORDINATOR and MD; encourage PO 2. Glucerna TID; consider d/c and adding more protein to meals 3. Double eggs WB, smoothie WL; no turkey per pt preference 4. Routine bowel care 5. Weekly wts Addendum: 03/05/22 at [address] Amended: Links added.
[2022-03-05 15:46] VITALS: BP 118/79
--- NOTE | 2022-03-05 17:09 | NUR ---
supervised student Robert bowman pass this shift
--- NOTE | 2022-03-05 18:03 | NUR ---
Patient in room ALEK 344a. I have received report from JUAN Mohr and had the opportunity to ask questions and assume patient care.
--- NOTE | 2022-03-05 18:12 | NUR ---
Problems reprioritized. Patient report given, questions answered & plan of care reviewed with Tamera MARTINEZ.
[2022-03-05 19:00] VITALS: BP 120/79
[2022-03-05] MEDS: clotrimazole topical cream 15gm tube TP SCH (19:24)
[2022-03-05] MEDS ORDERED: warfarin 4mg tablet PO ONE (21:00)
[2022-03-05] MEDS: insulin glargine (Lantus) pen - multi-dose SQ SCH (21:43)
[2022-03-06] VITALS: BP 120/78
[2022-03-06] MEDS: HYDROcodone/acetaminophen 5mg/325mg tablet PO PRN (01:35)
--- NOTE | 2022-03-06 04:55 | NUR ---
Mendoza Catheter discontinued per MD chawla
[2022-03-06 05:37] LABS: BASOPHILS # (AUTO) 0.1 X10'3 (0-0.2); BASOPHILS % (AUTO) 1.1 % (0-1); EOSINOPHILS # (AUTO) 0.2 X10'3 (0-0.9); EOSINOPHILS % (AUTO) 2.5 % (0-6); HEMATOCRIT 40.5 % (42.0-52.0); HEMOGLOBIN 13.2 g/dl (14.0-17.9); LYMPHOCYTES # (AUTO) 2.5 X10'3 (1.1-4.8); MEAN CORPUSCULAR HEMOGLOBIN 28.4 PG (27.0-31.0); MEAN CORPUSCULAR HGB CONC 32.7 g/dL (33.0-36.5); MEAN CORPUSCULAR VOLUME 86.7 FL (78-98); MONOCYTES # (AUTO) 0.8 X10'3 (0-0.9); MONOCYTES % (AUTO) 9.1 % (2-12); NEUTROPHILS # (AUTO) 4.9 X10'3 (1.8-7.7); NEUTROPHILS % (AUTO) 57.3 % (42-75); PLATELET COUNT 401 X10'3 (140-440); RED BLOOD COUNT 4.66 X10'6 (4.70-6.10); RED CELL DISTRIBUTION WIDTH 15.3 % (11.5-14.5); WHITE BLOOD COUNT 8.5 X10'3 (4.5-11.0)
[2022-03-06 05:56] LABS: ALANINE AMINOTRANSFERASE 66 U/L (12-78); ALBUMIN 2.7 G/DL (3.4-5.0); ALBUMIN/GLOBULIN RATIO 0.6 (1.1-1.5); ALKALINE PHOSPHATASE 66 IU/L (46-116); ANION GAP 9 (8-16); ASPARTATE AMINO TRANSFERASE 38 U/L (10-37); BILIRUBIN,TOTAL 0.5 MG/DL (0.1-1.0); BLOOD UREA NITROGEN 41 MG/DL (7-18); BUN/CREATININE RATIO 23.4 (5.4-32.0); CALCIUM 8.9 MG/DL (8.5-10.1); CHLORIDE 101 MMOL/L (99-107); CREATININE 1.75 MG/DL (0.60-1.10); GLUCOSE 124 MG/DL (70-104); POTASSIUM 5.1 MMOL/L (3.5-5.1); SODIUM 134 MMOL/L (135-145); TOTAL CARBON DIOXIDE 23.7 MMOL/L (24-32); eGFR 40 ML/MIN
--- NOTE | 2022-03-06 06:31 | NUR ---
Problems reprioritized. Patient report given, questions answered & plan of care reviewed with JUAN Steven.
--- NOTE | 2022-03-06 06:43 | NUR ---
Patient in room ALEK 344. I have received report from JUAN Philip and had the opportunity to ask questions and assume patient care.
[2022-03-06 07:00] VITALS: BP 133/85
[2022-03-06] MEDS: levoTHYROXINE 100mcg tablet PO SCH (07:55)
[2022-03-06] MEDS: linezolid 600mg tablet PO SCH ×2 (07:55→20:06)
[2022-03-06] MEDS: aspirin 81mg, enteric-coated 1 TAB TABLET.DR PO SCH (07:55)
[2022-03-06] MEDS: thiamine 100mg tablet PO SCH ×2 (07:55→20:03)
[2022-03-06] MEDS: amiodarone 200mg tablet PO SCH (07:56)
[2022-03-06] MEDS: spironolactone 25 MG tablet PO SCH (07:56)
[2022-03-06] MEDS: atorvastatin 20mg tablet PO SCH (07:56)
[2022-03-06] MEDS: docusate sod 100mg capsule PO SCH ×2 (07:56→20:02)
[2022-03-06] MEDS: cholecalciferol (vitamin D3) 1,000 unit (25mcg) tablet PO SCH (07:56)
[2022-03-06] MEDS: FLUoxetine 20mg capsule PO SCH (07:56)
[2022-03-06] MEDS: pantoprazole 40mg Tablet.DR PO SCH (07:56)
[2022-03-06] MEDS: carVEDilol 12.5mg tablet PO SCH ×2 (07:57→20:03)
[2022-03-06] MEDS: lisinopril 10 MG tablet PO SCH ×2 (08:00→20:05)
[2022-03-06] MEDS: NUT.TX.GLUC.INTOLER,LAC-FR,SOY (GLUCERNA) 237 ML PO SCH ×3 (08:00→18:06)
[2022-03-06] MEDS: K and/or MAG REPLACEMENT MC SCH ×2 (08:00→21:19)
[2022-03-06] MEDS: insulin Lispro (HumaLOG) vial - multi-dose SQ SCH ×3 (09:31→19:01)
[2022-03-06] MEDS: clotrimazole topical cream 15gm tube TP SCH ×2 (09:31→20:07)
[2022-03-06 10:00] VITALS: BP 121/88
--- NOTE | 2022-03-06 11:28 | NUR ---
Patient voided 200ml post void residual bladder scan shows 27ml.
[2022-03-06] MEDS: DEXTROSE 15 GM of carb/4 tabs (each vial/BOTTLE has 4 tablets) PO PRN (15:00)
--- NOTE | 2022-03-06 16:58 | NUR ---
Patient able to void 200ml with pvr of 97. Dr. Funk in to see patient and is aware.
--- NOTE | 2022-03-06 17:31 | NUR ---
Per Dr. Funk if patient is not complaining of difficulty with voiding no need for post void residual bladder scan.
--- NOTE | 2022-03-06 18:29 | NUR ---
Problems reprioritized. Patient report given, questions answered & plan of care reviewed with JAUN BURGOS.
[2022-03-06 20:00] VITALS: BP 123/95
[2022-03-06] MEDS ORDERED: warfarin 4mg tablet PO ONE (21:00)
[2022-03-06] MEDS: insulin glargine (Lantus) pen - multi-dose SQ SCH (21:19)
[2022-03-07] VITALS: BP 122/89
--- NOTE | 2022-03-07 06:02 | NUR ---
Problems reprioritized. Patient report given, questions answered & plan of care reviewed with JUAN Steven.
--- NOTE | 2022-03-07 06:23 | NUR ---
Patient in room ALEK 344. I have received report from JUAN Philip and had the opportunity to ask questions and assume patient care.
[2022-03-07 06:28] LABS: BASOPHILS # (AUTO) 0.1 X10'3 (0-0.2); BASOPHILS % (AUTO) 0.9 % (0-1); EOSINOPHILS # (AUTO) 0.2 X10'3 (0-0.9); HEMATOCRIT 40.8 % (42.0-52.0); HEMOGLOBIN 13.6 g/dl (14.0-17.9); LYMPHOCYTES # (AUTO) 2.1 X10'3 (1.1-4.8); LYMPHOCYTES % (AUTO) 27.6 % (21-51); MEAN CORPUSCULAR HEMOGLOBIN 28.9 PG (27.0-31.0); MEAN CORPUSCULAR HGB CONC 33.3 g/dL (33.0-36.5); MEAN CORPUSCULAR VOLUME 86.9 FL (78-98); MEAN PLATELET VOLUME 9.9 FL (7.4-10.4); MONOCYTES # (AUTO) 0.8 X10'3 (0-0.9); MONOCYTES % (AUTO) 10.9 % (2-12); NEUTROPHILS # (AUTO) 4.5 X10'3 (1.8-7.7); NEUTROPHILS % (AUTO) 58.6 % (42-75); PLATELET COUNT 398 X10'3 (140-440); RED CELL DISTRIBUTION WIDTH 15.1 % (11.5-14.5); WHITE BLOOD COUNT 7.7 X10'3 (4.5-11.0)
[2022-03-07 06:54] LABS: ALANINE AMINOTRANSFERASE 64 U/L (12-78); ALBUMIN 2.8 G/DL (3.4-5.0); ALBUMIN/GLOBULIN RATIO 0.6 (1.1-1.5); ALKALINE PHOSPHATASE 66 IU/L (46-116); ANION GAP 10 (8-16); ASPARTATE AMINO TRANSFERASE 42 U/L (10-37); BILIRUBIN,TOTAL 0.6 MG/DL (0.1-1.0); BLOOD UREA NITROGEN 35 MG/DL (7-18); BUN/CREATININE RATIO 21.7 (5.4-32.0); CALCIUM 8.7 MG/DL (8.5-10.1); CHLORIDE 101 MMOL/L (99-107); CREATININE 1.61 MG/DL (0.60-1.10); GLUCOSE 109 MG/DL (70-104); POTASSIUM 4.5 MMOL/L (3.5-5.1); SODIUM 136 MMOL/L (135-145); TOTAL CARBON DIOXIDE 25.3 MMOL/L (24-32); TOTAL PROTEIN 7.2 G/DL (6.4-8.2); eGFR 44 ML/MIN
[2022-03-07 07:00] VITALS: BP 122/79
[2022-03-07] MEDS: lisinopril 10 MG tablet PO SCH ×2 (07:47→19:58)
[2022-03-07] MEDS: atorvastatin 20mg tablet PO SCH (07:48)
[2022-03-07] MEDS: spironolactone 25 MG tablet PO SCH (07:49)
[2022-03-07] MEDS: pantoprazole 40mg Tablet.DR PO SCH (07:49)
[2022-03-07] MEDS: carVEDilol 12.5mg tablet PO SCH ×2 (07:49→19:59)
[2022-03-07] MEDS: thiamine 100mg tablet PO SCH ×2 (07:50→19:59)
[2022-03-07] MEDS: levoTHYROXINE 100mcg tablet PO SCH (07:50)
[2022-03-07] MEDS: amiodarone 200mg tablet PO SCH (07:50)
[2022-03-07] MEDS: FLUoxetine 20mg capsule PO SCH (07:50)
[2022-03-07] MEDS: HYDROcodone/acetaminophen 5mg/325mg tablet PO PRN ×2 (07:51→19:59)
[2022-03-07] MEDS: docusate sod 100mg capsule PO SCH ×2 (07:51→19:57)
[2022-03-07] MEDS: aspirin 81mg, enteric-coated 1 TAB TABLET.DR PO SCH (07:52)
[2022-03-07] MEDS: cholecalciferol (vitamin D3) 1,000 unit (25mcg) tablet PO SCH (07:52)
[2022-03-07] MEDS: K and/or MAG REPLACEMENT MC SCH ×2 (08:00→20:00)
[2022-03-07] MEDS: clotrimazole topical cream 15gm tube TP SCH ×2 (08:06→20:02)
[2022-03-07] MEDS: NUT.TX.GLUC.INTOLER,LAC-FR,SOY (GLUCERNA) 237 ML PO SCH ×3 (08:08→18:15)
[2022-03-07] MEDS: linezolid 600mg tablet PO SCH ×2 (08:58→20:02)
[2022-03-07] MEDS: normal saline 1000ml 1,000 ML IV SCH (09:00)
[2022-03-07] MEDS: insulin Lispro (HumaLOG) vial - multi-dose SQ SCH ×2 (09:04→19:03)
[2022-03-07] MEDS: baclofen 10mg tablet PO PRN (10:16)
[2022-03-07 11:00] VITALS: BP 103/67
--- NOTE | 2022-03-07 13:10 | NUR ---
Pt refusing glucerna at this time
[2022-03-07 18:00] VITALS: BP 128/97
--- NOTE | 2022-03-07 18:12 | NUR ---
Problems reprioritized. Patient report given, questions answered & plan of care reviewed with JUAN Mckeon.
--- NOTE | 2022-03-07 18:35 | NUR ---
Patient in room ALEK 344. I have received report from JUAN Steven and had the opportunity to ask questions and assume patient care. Patient resting with eyes closed, in no apparent distress.
[2022-03-07 20:00] VITALS: BP 128/97
[2022-03-07] MEDS ORDERED: warfarin 4mg tablet PO ONE (21:00)
[2022-03-07] MEDS: insulin glargine (Lantus) pen - multi-dose SQ SCH (21:05)
[2022-03-07] MEDS: temazepam 15mg capsule PO PRN (21:21)
[2022-03-08] VITALS: BP 130/89
--- NOTE | 2022-03-08 06:07 | NUR ---
Problems reprioritized. Patient report given, questions answered & plan of care reviewed with JUAN Medina.
[2022-03-08 06:13] LABS: BASOPHILS # (AUTO) 0.1 X10'3 (0-0.2); EOSINOPHILS # (AUTO) 0.2 X10'3 (0-0.9); EOSINOPHILS % (AUTO) 2.2 % (0-6); HEMATOCRIT 42.5 % (42.0-52.0); LYMPHOCYTES # (AUTO) 2.2 X10'3 (1.1-4.8); LYMPHOCYTES % (AUTO) 31.6 % (21-51); MEAN CORPUSCULAR HEMOGLOBIN 29.3 PG (27.0-31.0); MEAN CORPUSCULAR HGB CONC 32.9 g/dL (33.0-36.5); MEAN CORPUSCULAR VOLUME 89.1 FL (78-98); MEAN PLATELET VOLUME 9.1 FL (7.4-10.4); MONOCYTES # (AUTO) 0.8 X10'3 (0-0.9); MONOCYTES % (AUTO) 11.3 % (2-12); NEUTROPHILS # (AUTO) 3.8 X10'3 (1.8-7.7); NEUTROPHILS % (AUTO) 53.9 % (42-75); PLATELET COUNT 365 X10'3 (140-440); RED BLOOD COUNT 4.77 X10'6 (4.70-6.10); RED CELL DISTRIBUTION WIDTH 15.4 % (11.5-14.5); WHITE BLOOD COUNT 7.1 X10'3 (4.5-11.0)
[2022-03-08 06:39] LABS: ALANINE AMINOTRANSFERASE 70 U/L (12-78); ALBUMIN/GLOBULIN RATIO 0.7 (1.1-1.5); ALKALINE PHOSPHATASE 73 IU/L (46-116); ANION GAP 10 (8-16); ASPARTATE AMINO TRANSFERASE 47 U/L (10-37); BILIRUBIN,TOTAL 0.5 MG/DL (0.1-1.0); BLOOD UREA NITROGEN 40 MG/DL (7-18); BUN/CREATININE RATIO 24.2 (5.4-32.0); CALCIUM 9.2 MG/DL (8.5-10.1); CHLORIDE 101 MMOL/L (99-107); CREATININE 1.65 MG/DL (0.60-1.10); GLUCOSE 106 MG/DL (70-104); POTASSIUM 5.2 MMOL/L (3.5-5.1); SODIUM 135 MMOL/L (135-145); TOTAL CARBON DIOXIDE 24.1 MMOL/L (24-32); TOTAL PROTEIN 7.4 G/DL (6.4-8.2); eGFR 43 ML/MIN
--- NOTE | 2022-03-08 06:39 | NUR ---
Patient in room ALEK 344. I have received report from Mike MARTINEZ and had the opportunity to ask questions and assume patient care.
[2022-03-08] MEDS: clotrimazole topical cream 15gm tube TP SCH ×2 (06:44→19:20)
[2022-03-08] MEDS: linezolid 600mg tablet PO SCH ×2 (06:45→19:19)
[2022-03-08] MEDS: pantoprazole 40mg Tablet.DR PO SCH (06:45)
[2022-03-08] MEDS: atorvastatin 20mg tablet PO SCH (06:46)
[2022-03-08] MEDS: aspirin 81mg, enteric-coated 1 TAB TABLET.DR PO SCH (06:47)
[2022-03-08] MEDS: docusate sod 100mg capsule PO SCH ×2 (06:47→19:13)
[2022-03-08] MEDS: thiamine 100mg tablet PO SCH ×2 (06:48→19:13)
[2022-03-08] MEDS: cholecalciferol (vitamin D3) 1,000 unit (25mcg) tablet PO SCH (06:48)
[2022-03-08] MEDS: levoTHYROXINE 100mcg tablet PO SCH (06:48)
[2022-03-08 07:00] VITALS: BP 134/83
[2022-03-08] MEDS: spironolactone 25 MG tablet PO SCH (07:04)
[2022-03-08] MEDS: lisinopril 10 MG tablet PO SCH ×2 (07:04→19:18)
[2022-03-08] MEDS: carVEDilol 12.5mg tablet PO SCH ×2 (07:05→19:18)
[2022-03-08] MEDS: FLUoxetine 20mg capsule PO SCH (07:17)
[2022-03-08] MEDS: amiodarone 200mg tablet PO SCH (07:17)
[2022-03-08] MEDS: HYDROcodone/acetaminophen 5mg/325mg tablet PO PRN ×2 (07:18→19:13)
[2022-03-08] MEDS: NUT.TX.GLUC.INTOLER,LAC-FR,SOY (GLUCERNA) 237 ML PO SCH ×3 (07:43→18:04)
[2022-03-08] MEDS: K and/or MAG REPLACEMENT MC SCH ×2 (08:00→20:00)
[2022-03-08] MEDS: insulin Lispro (HumaLOG) vial - multi-dose SQ SCH ×2 (08:13→13:38)
[2022-03-08 08:20] VITALS: BP 134/83
[2022-03-08 11:48] VITALS: BP 94/49
[2022-03-08] MEDS: nystatin 15 GM powder TP SCH ×2 (13:00→21:48)
[2022-03-08] MEDS: DEXTROSE 15 GM of carb/4 tabs (each vial/BOTTLE has 4 tablets) PO PRN (17:22)
[2022-03-08 18:00] VITALS: BP 125/77
--- NOTE | 2022-03-08 18:17 | NUR ---
patient given all cares condom catheter changed x3, difficult for patient to keep on. worked with PT see note. Blood sugars 107/175/65. Medicated per EMAR for BS of 65. by Rosalee MARTINEZ. Repeat BS 105. Report given to Mike MARTINEZ
--- NOTE | 2022-03-08 18:42 | NUR ---
Patient in room [facility]. I have received report from JUAN Whitehead and had the opportunity to ask questions and assume patient care.
[2022-03-08] MEDS ORDERED: warfarin 3mg tablet PO ONE (21:00)
[2022-03-08] MEDS: temazepam 15mg capsule PO PRN (21:45)
[2022-03-08] MEDS: insulin glargine (Lantus) pen - multi-dose SQ SCH (21:45)
[2022-03-09 00:56] VITALS: BP 107/67
--- NOTE | 2022-03-09 06:10 | NUR ---
Patient in room [facility]. I have received report from JUAN Mckeon and had the opportunity to ask questions and assume patient care.
--- NOTE | 2022-03-09 06:19 | NUR ---
Problems reprioritized. Patient report given, questions answered & plan of care reviewed with JUAN Ryder.
[2022-03-09 06:22] LABS: BASOPHILS % (AUTO) 0.7 % (0-1); EOSINOPHILS # (AUTO) 0.1 X10'3 (0-0.9); HEMOGLOBIN 13.6 g/dl (14.0-17.9); LYMPHOCYTES # (AUTO) 2.1 X10'3 (1.1-4.8); LYMPHOCYTES % (AUTO) 31.1 % (21-51); MEAN CORPUSCULAR HEMOGLOBIN 28.2 PG (27.0-31.0); MEAN CORPUSCULAR HGB CONC 32.3 g/dL (33.0-36.5); MEAN CORPUSCULAR VOLUME 87.5 FL (78-98); MEAN PLATELET VOLUME 9.8 FL (7.4-10.4); MONOCYTES # (AUTO) 0.8 X10'3 (0-0.9); MONOCYTES % (AUTO) 12.3 % (2-12); NEUTROPHILS # (AUTO) 3.6 X10'3 (1.8-7.7); NEUTROPHILS % (AUTO) 53.9 % (42-75); PLATELET COUNT 339 X10'3 (140-440); RED CELL DISTRIBUTION WIDTH 15.5 % (11.5-14.5); WHITE BLOOD COUNT 6.6 X10'3 (4.5-11.0)
[2022-03-09 06:30] VITALS: BP 103/77
[2022-03-09 06:42] LABS: ALANINE AMINOTRANSFERASE 70 U/L (12-78); ALBUMIN/GLOBULIN RATIO 0.7 (1.1-1.5); ALKALINE PHOSPHATASE 69 IU/L (46-116); ANION GAP 8 (8-16); ASPARTATE AMINO TRANSFERASE 45 U/L (10-37); BILIRUBIN,TOTAL 0.6 MG/DL (0.1-1.0); BLOOD UREA NITROGEN 37 MG/DL (7-18); BUN/CREATININE RATIO 21.9 (5.4-32.0); CALCIUM 8.8 MG/DL (8.5-10.1); CHLORIDE 105 MMOL/L (99-107); CREATININE 1.69 MG/DL (0.60-1.10); GLUCOSE 122 MG/DL (70-104); POTASSIUM 4.9 MMOL/L (3.5-5.1); SODIUM 138 MMOL/L (135-145); TOTAL CARBON DIOXIDE 24.9 MMOL/L (24-32); TOTAL PROTEIN 7.2 G/DL (6.4-8.2); eGFR 42 ML/MIN
[2022-03-09] MEDS: K and/or MAG REPLACEMENT MC SCH ×2 (07:27→20:00)
[2022-03-09] MEDS: NUT.TX.GLUC.INTOLER,LAC-FR,SOY (GLUCERNA) 237 ML PO SCH ×3 (07:27→17:39)
[2022-03-09] MEDS ORDERED: nystatin 15 GM powder TP SCH (08:00)
[2022-03-09] MEDS: carVEDilol 12.5mg tablet PO SCH ×2 (08:00→21:23)
[2022-03-09] MEDS: lisinopril 10 MG tablet PO SCH ×2 (08:00→21:22)
[2022-03-09] MEDS: atorvastatin 20mg tablet PO SCH (08:52)
[2022-03-09] MEDS: linezolid 600mg tablet PO SCH ×2 (08:53→21:22)
[2022-03-09] MEDS: pantoprazole 40mg Tablet.DR PO SCH (08:53)
[2022-03-09] MEDS: amiodarone 200mg tablet PO SCH (08:53)
[2022-03-09] MEDS: docusate sod 100mg capsule PO SCH ×2 (08:53→21:23)
[2022-03-09] MEDS: FLUoxetine 20mg capsule PO SCH (08:53)
[2022-03-09] MEDS: levoTHYROXINE 100mcg tablet PO SCH (08:53)
[2022-03-09] MEDS: cholecalciferol (vitamin D3) 1,000 unit (25mcg) tablet PO SCH (08:53)
[2022-03-09] MEDS: thiamine 100mg tablet PO SCH ×2 (08:53→21:22)
[2022-03-09] MEDS: aspirin 81mg, enteric-coated 1 TAB TABLET.DR PO SCH (08:53)
[2022-03-09] MEDS: HYDROcodone/acetaminophen 5mg/325mg tablet PO PRN ×3 (08:54→17:38)
[2022-03-09] MEDS: clotrimazole topical cream 15gm tube TP SCH ×2 (08:54→21:24)
[2022-03-09] MEDS: insulin Lispro (HumaLOG) vial - multi-dose SQ SCH ×3 (08:59→19:06)
[2022-03-09] MEDS: hydrocortisone 1% cream 28gm TP SCH ×2 (09:15→21:24)
[2022-03-09 11:00] VITALS: BP 109/62
[2022-03-09 18:00] VITALS: BP 112/68
--- NOTE | 2022-03-09 18:45 | NUR ---
Problems reprioritized. Patient report given, questions answered & plan of care reviewed with JUAN Valerio.
[2022-03-09] MEDS: baclofen 10mg tablet PO PRN (19:12)
[2022-03-09] MEDS ORDERED: warfarin 2.5mg tablet PO ONE (21:00)
[2022-03-09] MEDS: temazepam 15mg capsule PO PRN (21:23)
[2022-03-09] MEDS: insulin glargine (Lantus) pen - multi-dose SQ SCH (21:26)
[2022-03-10] VITALS: BP 91/64
[2022-03-10] MEDS: acetaminophen 325mg tablet PO PRN (05:21)
--- NOTE | 2022-03-10 06:12 | NUR ---
Problems reprioritized. Patient report given, questions answered & plan of care reviewed with JUAN Ryder.
[2022-03-10 06:13] LABS: BASOPHILS # (AUTO) 0.1 X10'3 (0-0.2); BASOPHILS % (AUTO) 0.8 % (0-1); EOSINOPHILS # (AUTO) 0.1 X10'3 (0-0.9); EOSINOPHILS % (AUTO) 2.1 % (0-6); HEMATOCRIT 39.6 % (42.0-52.0); HEMOGLOBIN 12.9 g/dl (14.0-17.9); LYMPHOCYTES % (AUTO) 31.6 % (21-51); MEAN CORPUSCULAR HEMOGLOBIN 28.5 PG (27.0-31.0); MEAN CORPUSCULAR HGB CONC 32.5 g/dL (33.0-36.5); MEAN CORPUSCULAR VOLUME 87.9 FL (78-98); MEAN PLATELET VOLUME 9.7 FL (7.4-10.4); MONOCYTES # (AUTO) 0.9 X10'3 (0-0.9); MONOCYTES % (AUTO) 13.8 % (2-12); NEUTROPHILS # (AUTO) 3.3 X10'3 (1.8-7.7); NEUTROPHILS % (AUTO) 51.7 % (42-75); PLATELET COUNT 333 X10'3 (140-440); RED CELL DISTRIBUTION WIDTH 15.4 % (11.5-14.5); WHITE BLOOD COUNT 6.4 X10'3 (4.5-11.0)
--- NOTE | 2022-03-10 06:20 | NUR ---
Patient in room [facility]. I have received report from JUAN Valerio and had the opportunity to ask questions and assume patient care.
[2022-03-10 06:29] LABS: ALANINE AMINOTRANSFERASE 73 U/L (12-78); ALBUMIN 2.8 G/DL (3.4-5.0); ALBUMIN/GLOBULIN RATIO 0.7 (1.1-1.5); ALKALINE PHOSPHATASE 67 IU/L (46-116); ANION GAP 11 (8-16); ASPARTATE AMINO TRANSFERASE 43 U/L (10-37); BILIRUBIN,TOTAL 0.6 MG/DL (0.1-1.0); BLOOD UREA NITROGEN 43 MG/DL (7-18); CALCIUM 8.6 MG/DL (8.5-10.1); CHLORIDE 102 MMOL/L (99-107); CREATININE 1.72 MG/DL (0.60-1.10); GLUCOSE 120 MG/DL (70-104); POTASSIUM 4.8 MMOL/L (3.5-5.1); SODIUM 136 MMOL/L (135-145); TOTAL CARBON DIOXIDE 23.3 MMOL/L (24-32); eGFR 41 ML/MIN
[2022-03-10 06:30] VITALS: BP 113/69
[2022-03-10] MEDS: NUT.TX.GLUC.INTOLER,LAC-FR,SOY (GLUCERNA) 237 ML PO SCH ×3 (07:04→18:30)
[2022-03-10] MEDS: K and/or MAG REPLACEMENT MC SCH ×2 (07:04→20:00)
[2022-03-10] MEDS: carVEDilol 12.5mg tablet PO SCH ×2 (08:00→21:12)
[2022-03-10] MEDS: levoTHYROXINE 100mcg tablet PO SCH (09:27)
[2022-03-10] MEDS: amiodarone 200mg tablet PO SCH (09:27)
[2022-03-10] MEDS: lisinopril 10 MG tablet PO SCH ×2 (09:27→21:12)
[2022-03-10] MEDS: atorvastatin 20mg tablet PO SCH (09:27)
[2022-03-10] MEDS: thiamine 100mg tablet PO SCH ×2 (09:27→21:10)
[2022-03-10] MEDS: cholecalciferol (vitamin D3) 1,000 unit (25mcg) tablet PO SCH (09:27)
[2022-03-10] MEDS: docusate sod 100mg capsule PO SCH ×2 (09:28→21:10)
[2022-03-10] MEDS: linezolid 600mg tablet PO SCH ×2 (09:28→21:58)
[2022-03-10] MEDS: hydrocortisone 1% cream 28gm TP SCH ×2 (09:28→21:14)
[2022-03-10] MEDS: FLUoxetine 20mg capsule PO SCH (09:28)
[2022-03-10] MEDS: pantoprazole 40mg Tablet.DR PO SCH (09:28)
[2022-03-10] MEDS: aspirin 81mg, enteric-coated 1 TAB TABLET.DR PO SCH (09:28)
[2022-03-10] MEDS: clotrimazole topical cream 15gm tube TP SCH ×2 (09:28→21:14)
[2022-03-10] MEDS: baclofen 10mg tablet PO PRN (09:29)
[2022-03-10] MEDS: HYDROcodone/acetaminophen 5mg/325mg tablet PO PRN ×3 (09:30→21:09)
[2022-03-10] MEDS: insulin Lispro (HumaLOG) vial - multi-dose SQ SCH ×2 (09:38→14:46)
[2022-03-10 11:00] VITALS: BP 108/71
--- NOTE | 2022-03-10 18:10 | NUR ---
Problems reprioritized. Patient report given, questions answered & plan of care reviewed with JUAN Mckeon.
--- NOTE | 2022-03-10 18:22 | NUR ---
Patient in room [facility]. I have received report from JUAN Ryder and had the opportunity to ask questions and assume patient care.
[2022-03-10 19:00] VITALS: BP 131/95
[2022-03-10] MEDS ORDERED: warfarin 2.5mg tablet PO ONE (21:00)
[2022-03-10] MEDS: temazepam 15mg capsule PO PRN (21:09)
[2022-03-10] MEDS: insulin glargine (Lantus) pen - multi-dose SQ SCH (21:30)
[2022-03-11] VITALS: BP 116/72
--- NOTE | 2022-03-11 06:10 | NUR ---
Patient in room [facility]. I have received report from JUAN Mckeon and had the opportunity to ask questions and assume patient care.
--- NOTE | 2022-03-11 06:20 | NUR ---
Problems reprioritized. Patient report given, questions answered & plan of care reviewed with Frank.
[2022-03-11 06:30] VITALS: BP 110/81
[2022-03-11 06:46] LABS: BASOPHILS # (AUTO) 0.1 X10'3 (0-0.2); BASOPHILS % (AUTO) 0.9 % (0-1); EOSINOPHILS # (AUTO) 0.1 X10'3 (0-0.9); EOSINOPHILS % (AUTO) 2.3 % (0-6); HEMOGLOBIN 13.1 g/dl (14.0-17.9); LYMPHOCYTES % (AUTO) 31.7 % (21-51); MEAN CORPUSCULAR HEMOGLOBIN 28.5 PG (27.0-31.0); MEAN CORPUSCULAR HGB CONC 32.7 g/dL (33.0-36.5); MONOCYTES # (AUTO) 0.9 X10'3 (0-0.9); MONOCYTES % (AUTO) 13.6 % (2-12); NEUTROPHILS # (AUTO) 3.2 X10'3 (1.8-7.7); NEUTROPHILS % (AUTO) 51.5 % (42-75); PLATELET COUNT 293 X10'3 (140-440); RED CELL DISTRIBUTION WIDTH 15.2 % (11.5-14.5); WHITE BLOOD COUNT 6.3 X10'3 (4.5-11.0)
[2022-03-11 07:08] LABS: ALANINE AMINOTRANSFERASE 73 U/L (12-78); ALBUMIN/GLOBULIN RATIO 0.7 (1.1-1.5); ALKALINE PHOSPHATASE 67 IU/L (46-116); ANION GAP 8 (8-16); ASPARTATE AMINO TRANSFERASE 44 U/L (10-37); BILIRUBIN,TOTAL 0.6 MG/DL (0.1-1.0); BLOOD UREA NITROGEN 41 MG/DL (7-18); BUN/CREATININE RATIO 24.4 (5.4-32.0); CALCIUM 8.8 MG/DL (8.5-10.1); CHLORIDE 105 MMOL/L (99-107); CREATININE 1.68 MG/DL (0.60-1.10); GLUCOSE 130 MG/DL (70-104); POTASSIUM 4.7 MMOL/L (3.5-5.1); SODIUM 137 MMOL/L (135-145); TOTAL CARBON DIOXIDE 23.8 MMOL/L (24-32); TOTAL PROTEIN 7.1 G/DL (6.4-8.2); eGFR 42 ML/MIN
[2022-03-11] MEDS: K and/or MAG REPLACEMENT MC SCH ×2 (07:19→19:17)
[2022-03-11] MEDS: carVEDilol 12.5mg tablet PO SCH ×2 (07:20→20:03)
[2022-03-11] MEDS: NUT.TX.GLUC.INTOLER,LAC-FR,SOY (GLUCERNA) 237 ML PO SCH ×3 (07:21→18:03)
[2022-03-11] MEDS: insulin Lispro (HumaLOG) vial - multi-dose SQ SCH ×3 (09:58→20:02)
[2022-03-11] MEDS: FLUoxetine 20mg capsule PO SCH (10:13)
[2022-03-11] MEDS: linezolid 600mg tablet PO SCH ×2 (10:13→20:04)
[2022-03-11] MEDS: thiamine 100mg tablet PO SCH ×2 (10:13→20:04)
[2022-03-11] MEDS: pantoprazole 40mg Tablet.DR PO SCH (10:13)
[2022-03-11] MEDS: lisinopril 10 MG tablet PO SCH ×2 (10:13→20:03)
[2022-03-11] MEDS: amiodarone 200mg tablet PO SCH (10:13)
[2022-03-11] MEDS: levoTHYROXINE 100mcg tablet PO SCH (10:13)
[2022-03-11] MEDS: aspirin 81mg, enteric-coated 1 TAB TABLET.DR PO SCH (10:14)
[2022-03-11] MEDS: cholecalciferol (vitamin D3) 1,000 unit (25mcg) tablet PO SCH (10:14)
[2022-03-11] MEDS: docusate sod 100mg capsule PO SCH ×2 (10:14→20:04)
[2022-03-11] MEDS: hydrocortisone 1% cream 28gm TP SCH ×2 (10:15→19:53)
[2022-03-11] MEDS: atorvastatin 20mg tablet PO SCH (10:15)
[2022-03-11] MEDS: clotrimazole topical cream 15gm tube TP SCH ×2 (10:15→19:53)
[2022-03-11] MEDS: HYDROcodone/acetaminophen 5mg/325mg tablet PO PRN ×2 (10:18→17:41)
[2022-03-11] MEDS: baclofen 10mg tablet PO PRN (10:18)
[2022-03-11 11:00] VITALS: BP 123/81
--- NOTE | 2022-03-11 18:10 | NUR ---
Problems reprioritized. Patient report given, questions answered & plan of care reviewed with JUAN Perez.
[2022-03-11 20:00] VITALS: BP 137/92
[2022-03-11] MEDS ORDERED: warfarin 4mg tablet PO ONE (21:00)
[2022-03-11] MEDS: insulin glargine (Lantus) pen - multi-dose SQ SCH (21:43)
[2022-03-11] MEDS: temazepam 15mg capsule PO PRN (21:50)
[2022-03-12] VITALS: BP 110/78
--- NOTE | 2022-03-12 03:37 | NUR ---
resting without changes at this time. condom cath in place.
[2022-03-12 05:38] LABS: BASOPHILS # (AUTO) 0.1 X10'3 (0-0.2); BASOPHILS % (AUTO) 1.1 % (0-1); EOSINOPHILS # (AUTO) 0.1 X10'3 (0-0.9); EOSINOPHILS % (AUTO) 2.3 % (0-6); HEMATOCRIT 41.3 % (42.0-52.0); HEMOGLOBIN 13.6 g/dl (14.0-17.9); LYMPHOCYTES # (AUTO) 1.9 X10'3 (1.1-4.8); LYMPHOCYTES % (AUTO) 35.8 % (21-51); MEAN CORPUSCULAR HEMOGLOBIN 28.8 PG (27.0-31.0); MEAN CORPUSCULAR HGB CONC 32.9 g/dL (33.0-36.5); MEAN CORPUSCULAR VOLUME 87.6 FL (78-98); MEAN PLATELET VOLUME 9.2 FL (7.4-10.4); MONOCYTES # (AUTO) 0.8 X10'3 (0-0.9); MONOCYTES % (AUTO) 15.3 % (2-12); NEUTROPHILS # (AUTO) 2.4 X10'3 (1.8-7.7); NEUTROPHILS % (AUTO) 45.5 % (42-75); PLATELET COUNT 279 X10'3 (140-440); RED BLOOD COUNT 4.72 X10'6 (4.70-6.10); RED CELL DISTRIBUTION WIDTH 15.3 % (11.5-14.5); WHITE BLOOD COUNT 5.2 X10'3 (4.5-11.0)
[2022-03-12 06:02] LABS: ALANINE AMINOTRANSFERASE 74 U/L (12-78); ALBUMIN 2.9 G/DL (3.4-5.0); ALBUMIN/GLOBULIN RATIO 0.7 (1.1-1.5); ALKALINE PHOSPHATASE 64 IU/L (46-116); ANION GAP 10 (8-16); ASPARTATE AMINO TRANSFERASE 41 U/L (10-37); BILIRUBIN,TOTAL 0.6 MG/DL (0.1-1.0); BLOOD UREA NITROGEN 32 MG/DL (7-18); BUN/CREATININE RATIO 21.5 (5.4-32.0); CALCIUM 8.9 MG/DL (8.5-10.1); CHLORIDE 103 MMOL/L (99-107); CREATININE 1.49 MG/DL (0.60-1.10); GLUCOSE 99 MG/DL (70-104); POTASSIUM 4.6 MMOL/L (3.5-5.1); SODIUM 136 MMOL/L (135-145); TOTAL CARBON DIOXIDE 22.8 MMOL/L (24-32); TOTAL PROTEIN 7.1 G/DL (6.4-8.2); eGFR 48 ML/MIN
--- NOTE | 2022-03-12 06:03 | NUR ---
Problems reprioritized. Patient report given, questions answered & plan of care reviewed with JUAN RUBIN. Addendum: 03/12/22 at 0603 by Ana Edwards RN Amended: Links added.
[2022-03-12 07:27] VITALS: BP 115/65
[2022-03-12] MEDS: K and/or MAG REPLACEMENT MC SCH ×2 (08:00→20:00)
[2022-03-12] MEDS: NUT.TX.GLUC.INTOLER,LAC-FR,SOY (GLUCERNA) 237 ML PO SCH (08:00)
[2022-03-12] MEDS: lisinopril 10 MG tablet PO SCH ×2 (08:45→19:10)
[2022-03-12] MEDS: carVEDilol 12.5mg tablet PO SCH ×2 (08:46→19:07)
[2022-03-12] MEDS: cholecalciferol (vitamin D3) 1,000 unit (25mcg) tablet PO SCH (08:46)
[2022-03-12] MEDS: atorvastatin 20mg tablet PO SCH (08:46)
[2022-03-12] MEDS: thiamine 100mg tablet PO SCH ×2 (08:46→19:06)
[2022-03-12] MEDS: levoTHYROXINE 100mcg tablet PO SCH (08:46)
[2022-03-12] MEDS: FLUoxetine 20mg capsule PO SCH (08:46)
[2022-03-12] MEDS: furosemide 20MG tablet PO SCH (08:46)
[2022-03-12] MEDS: aspirin 81mg, enteric-coated 1 TAB TABLET.DR PO SCH (08:47)
[2022-03-12] MEDS: docusate sod 100mg capsule PO SCH ×2 (08:47→19:06)
[2022-03-12] MEDS: amiodarone 200mg tablet PO SCH (08:47)
[2022-03-12] MEDS: pantoprazole 40mg Tablet.DR PO SCH (08:47)
[2022-03-12] MEDS: insulin Lispro (HumaLOG) vial - multi-dose SQ SCH ×3 (10:27→19:46)
--- NOTE | 2022-03-12 12:08 | NUR ---
Reassessment: Pt continues on Carb controlled/SB6 diet w/ mostly 100% intake of meals as well as 100% of ONS, also receiving smoothie WL and double eggs WB. Overall pt meeting est nutrient needs at this time. Noted wt discrepancy in EMR, previously around 140kg and now 89.9kg most recent bed scale wt. TC to RN who states pt more likely around 140kg. Also d/w RN recommendation to d/c ONS as pt eating 100% of meals LBM 03/11 receiving routine bowel care. No change to recommendations at this time, will continue to monitor. Recommendations: 1. Continue carb control/SB6 diet per MASTIC SPRAYER and MD; encourage PO 2. Glucerna TID; consider d/c and adding more protein to meals 3. Double eggs WB, smoothie WL; no turkey per pt preference 4. Routine bowel care 5. Weekly wts Addendum: 03/12/22 at [address] Amended: Links added.
[2022-03-12 12:32] VITALS: BP 95/53
[2022-03-12] MEDS: clotrimazole topical cream 15gm tube TP SCH ×2 (14:16→21:28)
[2022-03-12] MEDS: hydrocortisone 1% cream 28gm TP SCH ×2 (14:16→21:28)
--- NOTE | 2022-03-12 16:30 | NUR ---
Bladder scanned patient 116ml's in bladder
--- NOTE | 2022-03-12 18:35 | NUR ---
Problems reprioritized. Patient report given, questions answered & plan of care reviewed with JUAN Perez.
--- NOTE | 2022-03-12 18:35 | NUR ---
Problems reprioritized. Patient report given, questions answered & plan of care reviewed with Ana MARTINEZ.
--- NOTE | 2022-03-12 18:42 | NUR ---
Patient in room [facility]. I have received report from JUAN RUBIN and had the opportunity to ask questions and assume patient care. Addendum: 03/12/22 at 1842 by Ana Edwards RN Amended: Links added.
[2022-03-12] MEDS: HYDROcodone/acetaminophen 5mg/325mg tablet PO PRN (19:06)
[2022-03-12 20:04] VITALS: BP 135/96
--- NOTE | 2022-03-12 20:20 | NUR ---
PT INC LARGE BM AND SKIN CARE DONE AND HYDROCORTISONE CREAM WITH CLOTRIN CREAM MIX APPLIED TO REASH ON SACCRAL AREA. RASH APPEARS 50% BETTER COMPARED TO LAST NIGHT. Addendum: 03/12/22 at 2225 by Ana Edwards RN Amended: Links added.
[2022-03-12] MEDS ORDERED: warfarin 4mg tablet PO ONE (21:00)
[2022-03-12] MEDS: temazepam 15mg capsule PO PRN (21:28)
[2022-03-12] MEDS: insulin glargine (Lantus) pen - multi-dose SQ SCH (21:34)
[2022-03-13] VITALS: BP_SYST 109; BP_SYST 133; BP_DIAS 73; BP_DIAS 93
--- NOTE | 2022-03-13 01:15 | NUR ---
pt awoke c/o pain and itching hydrocortisone cream to right arm &right ankle per request and medicated for pain with po norco and baclofen.
[2022-03-13] MEDS: baclofen 10mg tablet PO PRN ×2 (01:17→11:16)
[2022-03-13] MEDS: HYDROcodone/acetaminophen 5mg/325mg tablet PO PRN ×3 (01:18→20:42)
--- NOTE | 2022-03-13 03:02 | NUR ---
resting no changes.
--- NOTE | 2022-03-13 04:43 | NUR ---
resting no changes.
[2022-03-13 06:10] LABS: BASOPHILS # (AUTO) 0.1 X10'3 (0-0.2); BASOPHILS % (AUTO) 1.2 % (0-1); EOSINOPHILS # (AUTO) 0.2 X10'3 (0-0.9); EOSINOPHILS % (AUTO) 2.5 % (0-6); HEMATOCRIT 39.8 % (42.0-52.0); HEMOGLOBIN 13.1 g/dl (14.0-17.9); LYMPHOCYTES # (AUTO) 2.5 X10'3 (1.1-4.8); LYMPHOCYTES % (AUTO) 39.7 % (21-51); MEAN CORPUSCULAR HEMOGLOBIN 28.8 PG (27.0-31.0); MEAN CORPUSCULAR HGB CONC 32.9 g/dL (33.0-36.5); MEAN CORPUSCULAR VOLUME 87.6 FL (78-98); MEAN PLATELET VOLUME 9.9 FL (7.4-10.4); MONOCYTES % (AUTO) 15.3 % (2-12); NEUTROPHILS # (AUTO) 2.6 X10'3 (1.8-7.7); NEUTROPHILS % (AUTO) 41.3 % (42-75); PLATELET COUNT 244 X10'3 (140-440); RED BLOOD COUNT 4.54 X10'6 (4.70-6.10); RED CELL DISTRIBUTION WIDTH 15.4 % (11.5-14.5); WHITE BLOOD COUNT 6.3 X10'3 (4.5-11.0)
--- NOTE | 2022-03-13 06:31 | NUR ---
Patient in room [facility]. I have received report from and had the opportunity to ask questions and assume patient care.Problems reprioritized. Patient report given, questions answered & plan of care reviewed with JUAN RUBIN. Addendum: 03/13/22 at 0632 by Ana Edwards RN Amended: Links added.
[2022-03-13 06:35] LABS: ALANINE AMINOTRANSFERASE 86 U/L (12-78); ALBUMIN 2.8 G/DL (3.4-5.0); ALBUMIN/GLOBULIN RATIO 0.7 (1.1-1.5); ALKALINE PHOSPHATASE 62 IU/L (46-116); ANION GAP 10 (8-16); ASPARTATE AMINO TRANSFERASE 45 U/L (10-37); BILIRUBIN,TOTAL 0.6 MG/DL (0.1-1.0); BLOOD UREA NITROGEN 40 MG/DL (7-18); BUN/CREATININE RATIO 24.5 (5.4-32.0); CALCIUM 8.7 MG/DL (8.5-10.1); CHLORIDE 104 MMOL/L (99-107); CREATININE 1.63 MG/DL (0.60-1.10); GLUCOSE 106 MG/DL (70-104); POTASSIUM 4.6 MMOL/L (3.5-5.1); SODIUM 137 MMOL/L (135-145); TOTAL CARBON DIOXIDE 22.8 MMOL/L (24-32); TOTAL PROTEIN 6.9 G/DL (6.4-8.2); eGFR 44 ML/MIN
--- NOTE | 2022-03-13 06:48 | NUR ---
Patient in room [facility]. I have received report from JUAN Perez and had the opportunity to ask questions and assume patient care.
[2022-03-13 07:30] VITALS: BP 118/84
[2022-03-13] MEDS: K and/or MAG REPLACEMENT MC SCH ×2 (08:00→20:00)
[2022-03-13] MEDS: thiamine 100mg tablet PO SCH ×2 (09:03→20:14)
[2022-03-13] MEDS: cholecalciferol (vitamin D3) 1,000 unit (25mcg) tablet PO SCH (09:03)
[2022-03-13] MEDS: carVEDilol 12.5mg tablet PO SCH ×2 (09:03→20:00)
[2022-03-13] MEDS: levoTHYROXINE 100mcg tablet PO SCH (09:03)
[2022-03-13] MEDS: atorvastatin 20mg tablet PO SCH (09:03)
[2022-03-13] MEDS: docusate sod 100mg capsule PO SCH ×2 (09:03→20:14)
[2022-03-13] MEDS: furosemide 20MG tablet PO SCH (09:03)
[2022-03-13] MEDS: pantoprazole 40mg Tablet.DR PO SCH (09:04)
[2022-03-13] MEDS: amiodarone 200mg tablet PO SCH (09:04)
[2022-03-13] MEDS: lisinopril 10 MG tablet PO SCH ×2 (09:04→20:00)
[2022-03-13] MEDS: FLUoxetine 20mg capsule PO SCH (09:04)
[2022-03-13] MEDS: aspirin 81mg, enteric-coated 1 TAB TABLET.DR PO SCH (09:05)
[2022-03-13] MEDS: clotrimazole topical cream 15gm tube TP SCH ×2 (11:16→20:18)
[2022-03-13] MEDS: hydrocortisone 1% cream 28gm TP SCH ×2 (11:16→20:17)
[2022-03-13 11:48] VITALS: BP 99/64
--- NOTE | 2022-03-13 13:30 | NUR ---
PRESSURE ULCER EDUCATION: DEFINITION: A pressure ulcer is an area of skin that breaks down when you stay in one position too long. The constant pressure against the skin reduces the blood flow to that area and the affected tissue dies. CAUSES: "Being bedridden or in a wheelchair "Fragile skin "Having a chronic condition, such as diabetes or vascular disease "Inability to move certain parts of your body without assistance "Older age "Incontinence of urine or stool SYMPTOMS: "A reddened area that DOES NOT turn white when pressed on - this can be the beginning of a pressure ulcer "A blister, deep sore or a crater - these can be advanced pressure ulcers FIRST AID: "Relieve the pressure on this area "Keep the area clean and dry "Call your primary doctor if you see any of the above symptoms "DO NOT massage the area "DO NOT use a donut shaped or ring shaped pillow- these actually interfere with the blood flow and cause complications PREVENTION: "Check for pressure ulcers everyday "Change position at least every two hours to relieve pressure "Use items that help relieve pressure- pillows, sheepskin, foam padding, and powders. "Keep skin clean and dry "Eat healthy well balanced meals "Exercise daily IF YOU SEE ANY OF THESE SYMPTOMS WHILE IN THE HOSPITAL - TELL YOUR NURSE IMMEDIATELY. IF YOU SEE ANY OF THESE SYMPTOMS WHILE AT HOME OR HAVE ANY QUESTIONS OR CONCERNS ABOUT PRESSURE ULCERS - CALL YOUR PRIMARY DOCTOR IMMEDIATELY. Addendum: 03/13/22 at 1331 by iFor Brown RN Amended: Links added.
--- NOTE | 2022-03-13 18:25 | NUR ---
Problems reprioritized. Patient report given, questions answered & plan of care reviewed with JUAN Rinaldi.
--- NOTE | 2022-03-13 18:46 | NUR ---
Problems reprioritized. Patient report given, questions answered & plan of care reviewed with Nimco MARTINEZ.
[2022-03-13 20:00] VITALS: BP 118/83
[2022-03-13 20:10] VITALS: BP 113/89
[2022-03-13] MEDS: insulin Lispro (HumaLOG) vial - multi-dose SQ SCH (20:13)
[2022-03-13] MEDS ORDERED: warfarin 3mg tablet PO ONE (21:00)
[2022-03-13] MEDS: insulin glargine (Lantus) pen - multi-dose SQ SCH (22:47)
[2022-03-14 06:08] LABS: BASOPHILS # (AUTO) 0.1 X10'3 (0-0.2); EOSINOPHILS # (AUTO) 0.1 X10'3 (0-0.9); EOSINOPHILS % (AUTO) 2.3 % (0-6); HEMATOCRIT 41.5 % (42.0-52.0); HEMOGLOBIN 13.6 g/dl (14.0-17.9); LYMPHOCYTES # (AUTO) 2.1 X10'3 (1.1-4.8); LYMPHOCYTES % (AUTO) 35.2 % (21-51); MEAN CORPUSCULAR HEMOGLOBIN 28.7 PG (27.0-31.0); MEAN CORPUSCULAR HGB CONC 32.7 g/dL (33.0-36.5); MEAN CORPUSCULAR VOLUME 87.9 FL (78-98); MEAN PLATELET VOLUME 9.9 FL (7.4-10.4); MONOCYTES # (AUTO) 0.8 X10'3 (0-0.9); MONOCYTES % (AUTO) 13.2 % (2-12); NEUTROPHILS # (AUTO) 2.9 X10'3 (1.8-7.7); NEUTROPHILS % (AUTO) 48.3 % (42-75); PLATELET COUNT 259 X10'3 (140-440); RED BLOOD COUNT 4.72 X10'6 (4.70-6.10); RED CELL DISTRIBUTION WIDTH 15.2 % (11.5-14.5)
--- NOTE | 2022-03-14 06:15 | NUR ---
Patient in room [facility]. I have received report from Nimco MARTINEZ and had the opportunity to ask questions and assume patient care.
--- NOTE | 2022-03-14 06:22 | NUR ---
Problems reprioritized. Patient report given, questions answered & plan of care reviewed with JUAN Turk.
[2022-03-14 06:26] LABS: ALANINE AMINOTRANSFERASE 86 U/L (12-78); ALBUMIN/GLOBULIN RATIO 0.7 (1.1-1.5); ALKALINE PHOSPHATASE 67 IU/L (46-116); ANION GAP 11 (8-16); ASPARTATE AMINO TRANSFERASE 45 U/L (10-37); BILIRUBIN,TOTAL 0.8 MG/DL (0.1-1.0); BLOOD UREA NITROGEN 41 MG/DL (7-18); BUN/CREATININE RATIO 22.7 (5.4-32.0); CALCIUM 8.9 MG/DL (8.5-10.1); CHLORIDE 102 MMOL/L (99-107); CREATININE 1.81 MG/DL (0.60-1.10); GLUCOSE 89 MG/DL (70-104); POTASSIUM 4.6 MMOL/L (3.5-5.1); SODIUM 139 MMOL/L (135-145); TOTAL CARBON DIOXIDE 25.8 MMOL/L (24-32); TOTAL PROTEIN 7.3 G/DL (6.4-8.2); eGFR 39 ML/MIN
--- NOTE | 2022-03-14 07:19 | NUR ---
Patient in room [facility]. I have received report from Tara. MARTINEZ and had the opportunity to ask questions and assume patient care.
[2022-03-14 07:30] VITALS: BP 118/74
[2022-03-14] MEDS: lisinopril 10 MG tablet PO SCH ×2 (08:00→19:38)
[2022-03-14] MEDS: K and/or MAG REPLACEMENT MC SCH ×2 (08:00→19:45)
[2022-03-14] MEDS: furosemide 20MG tablet PO SCH (08:00)
[2022-03-14] MEDS: docusate sod 100mg capsule PO SCH ×2 (08:10→19:38)
[2022-03-14] MEDS: atorvastatin 20mg tablet PO SCH (08:11)
[2022-03-14] MEDS: levoTHYROXINE 100mcg tablet PO SCH (08:11)
[2022-03-14] MEDS: FLUoxetine 20mg capsule PO SCH (08:11)
[2022-03-14] MEDS: pantoprazole 40mg Tablet.DR PO SCH (08:11)
[2022-03-14] MEDS: aspirin 81mg, enteric-coated 1 TAB TABLET.DR PO SCH (08:11)
[2022-03-14] MEDS: carVEDilol 12.5mg tablet PO SCH ×2 (08:11→19:39)
[2022-03-14] MEDS: HYDROcodone/acetaminophen 5mg/325mg tablet PO PRN ×2 (08:12→15:20)
[2022-03-14] MEDS: thiamine 100mg tablet PO SCH ×2 (08:12→19:39)
[2022-03-14] MEDS: cholecalciferol (vitamin D3) 1,000 unit (25mcg) tablet PO SCH (08:12)
[2022-03-14] MEDS: amiodarone 200mg tablet PO SCH (08:13)
[2022-03-14] MEDS: clotrimazole topical cream 15gm tube TP SCH ×2 (08:14→19:41)
[2022-03-14] MEDS: hydrocortisone 1% cream 28gm TP SCH ×2 (08:14→19:41)
[2022-03-14] MEDS: insulin Lispro (HumaLOG) vial - multi-dose SQ SCH ×3 (08:26→19:36)
[2022-03-14 12:30] VITALS: BP 127/73
--- NOTE | 2022-03-14 15:12 | NUR ---
Student documentation: I have reviewed and agree with all interventions, assessments performed and documented by Cat Alyssa [facility] student.
[2022-03-14 18:00] VITALS: BP 146/98
--- NOTE | 2022-03-14 18:11 | NUR ---
Problems reprioritized. Patient report given, questions answered & plan of care reviewed with JUAN Suarez.
--- NOTE | 2022-03-14 18:17 | NUR ---
Patient in room [facility]. I have received report from CAT STUDENT/SOLEDAD RN and had the opportunity to ask questions and assume patient care.
[2022-03-14] MEDS ORDERED: warfarin 3mg tablet PO ONE (21:00)
[2022-03-14] MEDS: insulin glargine (Lantus) pen - multi-dose SQ SCH (21:25)
[2022-03-15 00:13] VITALS: BP 120/86
[2022-03-15] MEDS: baclofen 10mg tablet PO PRN (03:24)
[2022-03-15 05:59] LABS: BASOPHILS # (AUTO) 0.1 X10'3 (0-0.2); BASOPHILS % (AUTO) 0.7 % (0-1); EOSINOPHILS # (AUTO) 0.2 X10'3 (0-0.9); EOSINOPHILS % (AUTO) 2.3 % (0-6); HEMATOCRIT 41.6 % (42.0-52.0); HEMOGLOBIN 13.7 g/dl (14.0-17.9); LYMPHOCYTES # (AUTO) 2.2 X10'3 (1.1-4.8); LYMPHOCYTES % (AUTO) 28.7 % (21-51); MEAN CORPUSCULAR HEMOGLOBIN 29.2 PG (27.0-31.0); MEAN CORPUSCULAR VOLUME 88.4 FL (78-98); MEAN PLATELET VOLUME 9.9 FL (7.4-10.4); MONOCYTES # (AUTO) 1.2 X10'3 (0-0.9); NEUTROPHILS % (AUTO) 52.3 % (42-75); PLATELET COUNT 224 X10'3 (140-440); RED BLOOD COUNT 4.71 X10'6 (4.70-6.10); RED CELL DISTRIBUTION WIDTH 15.1 % (11.5-14.5); WHITE BLOOD COUNT 7.7 X10'3 (4.5-11.0)
[2022-03-15 06:23] LABS: ALANINE AMINOTRANSFERASE 85 U/L (12-78); ALBUMIN 3.1 G/DL (3.4-5.0); ALBUMIN/GLOBULIN RATIO 0.7 (1.1-1.5); ALKALINE PHOSPHATASE 68 IU/L (46-116); ANION GAP 11 (8-16); ASPARTATE AMINO TRANSFERASE 45 U/L (10-37); BILIRUBIN,TOTAL 0.6 MG/DL (0.1-1.0); BLOOD UREA NITROGEN 41 MG/DL (7-18); BUN/CREATININE RATIO 24.4 (5.4-32.0); CALCIUM 8.7 MG/DL (8.5-10.1); CHLORIDE 102 MMOL/L (99-107); CREATININE 1.68 MG/DL (0.60-1.10); GLUCOSE 94 MG/DL (70-104); POTASSIUM 4.3 MMOL/L (3.5-5.1); SODIUM 138 MMOL/L (135-145); TOTAL CARBON DIOXIDE 25.5 MMOL/L (24-32); TOTAL PROTEIN 7.3 G/DL (6.4-8.2); eGFR 42 ML/MIN
--- NOTE | 2022-03-15 06:24 | NUR ---
Problems reprioritized. Patient report given, questions answered & plan of care reviewed with NASRA MARTINEZ.
[2022-03-15 07:00] VITALS: BP 153/114
[2022-03-15 07:10] LABS: PLATELET ESTIMATE NORMAL; TOTAL CELLS COUNTED 100
[2022-03-15] MEDS: K and/or MAG REPLACEMENT MC SCH (07:50)
[2022-03-15] MEDS: pantoprazole 40mg Tablet.DR PO SCH (07:56)
[2022-03-15] MEDS: docusate sod 100mg capsule PO SCH (07:56)
[2022-03-15] MEDS: furosemide 20MG tablet PO SCH (07:57)
[2022-03-15] MEDS: cholecalciferol (vitamin D3) 1,000 unit (25mcg) tablet PO SCH (07:57)
[2022-03-15] MEDS: carVEDilol 12.5mg tablet PO SCH (07:57)
[2022-03-15] MEDS: aspirin 81mg, enteric-coated 1 TAB TABLET.DR PO SCH (07:57)
[2022-03-15] MEDS: amiodarone 200mg tablet PO SCH (07:57)
[2022-03-15] MEDS: thiamine 100mg tablet PO SCH (07:57)
[2022-03-15] MEDS: levoTHYROXINE 100mcg tablet PO SCH (07:57)
[2022-03-15] MEDS: FLUoxetine 20mg capsule PO SCH (07:57)
[2022-03-15] MEDS: atorvastatin 20mg tablet PO SCH (07:57)
[2022-03-15] MEDS: lisinopril 10 MG tablet PO SCH (07:59)
[2022-03-15] MEDS: hydrocortisone 1% cream 28gm TP SCH (08:02)
[2022-03-15] MEDS: clotrimazole topical cream 15gm tube TP SCH (08:02)
[2022-03-15 09:50] VITALS: BP 151/90
[2022-03-15] MEDS: HYDROcodone/acetaminophen 5mg/325mg tablet PO PRN (09:55)
--- NOTE | 2022-03-15 10:11 | NUR ---
PT DISCHARGED IN STABLE CONDITION. LEFT FACILITY VIA [facility]. IV DC [facility] INTACT. REPORT CALLED TO BYRON AT [facility], ALL QUESTIONS ANSWERED. Addendum: 03/15/22 at 1013 by Teri Flores RN Amended: Links added.
[2022-03-15] MEDS ORDERED: warfarin 3mg tablet PO ONE (21:00)
== END 2022-03-15 10:06 | DRG 64 ==
LOC: ER 11:24 → ED HOLD 21:05 → PCU 3S 02-15 11:45 → SUR 3N 03-01 12:24
PROVIDERS: ADMIT Family Medicine; ATTEND Family Medicine
PROC: B3251ZZ Computerized Tomography (CT Scan) of Bilateral Common Carotid Arteries using Low Osmolar Contrast (ICD-10-PCS; principal; 2022-02-16)
PROC: B32G1ZZ Computerized Tomography (CT Scan) of Bilateral Vertebral Arteries using Low Osmolar Contrast (ICD-10-PCS; 2022-02-16)
PROC: B32R1ZZ Computerized Tomography (CT Scan) of Intracranial Arteries using Low Osmolar Contrast (ICD-10-PCS; 2022-02-16)
PROC: B3281ZZ Computerized Tomography (CT Scan) of Bilateral Internal Carotid Arteries using Low Osmolar Contrast (ICD-10-PCS; 2022-02-16)
DX: I63.521 Cerebral infarction due to unspecified occlusion or stenosis of right anterior cerebral artery (principal); A41.81 Sepsis due to Enterococcus; I50.22 Chronic systolic (congestive) heart failure; I13.0 Hypertensive heart and chronic kidney disease with heart failure and stage 1 through stage 4 chronic kidney disease, or unspecified chronic kidney disease; I42.9 Cardiomyopathy, unspecified; G81.94 Hemiplegia, unspecified affecting left nondominant side; N17.9 Acute kidney failure, unspecified; T83.83XA Hemorrhage due to genitourinary prosthetic devices, implants and grafts, initial encounter; T83.028A Displacement of other urinary catheter, initial encounter; R47.01 Aphasia; E03.9 Hypothyroidism, unspecified; E11.22 Type 2 diabetes mellitus with diabetic chronic kidney disease; E78.5 Hyperlipidemia, unspecified; F32.A Depression, unspecified; G89.4 Chronic pain syndrome; M48.061 Spinal stenosis, lumbar region without neurogenic claudication; I48.0 Paroxysmal atrial fibrillation; K21.9 Gastro-esophageal reflux disease without esophagitis; R29.6 Repeated falls; N18.30 Chronic kidney disease, stage 3 unspecified; M54.2 Cervicalgia; M47.816 Spondylosis without myelopathy or radiculopathy, lumbar region; Y84.6 Urinary catheterization as the cause of abnormal reaction of the patient, or of later complication, without mention of misadventure at the time of the procedure; R33.9 Retention of urine, unspecified; Y92.238 Other place in hospital as the place of occurrence of the external cause; Z79.899 Other long term (current) drug therapy; Z82.49 Family history of ischemic heart disease and other diseases of the circulatory system; Z88.0 Allergy status to penicillin; Z83.3 Family history of diabetes mellitus
CPT/HCPCS: 36415; 70450; 70496; 70498; 71045; 72125; 72131; 73030; 73080; 80053; 80061; 80202; 80305; 81001; 81003; 82140; 82607; 82948; 83036; 83605; 83735; 83880; 84100; 84132; 84145; 84443; 84484; 85007; 85008; 85025; 85610; 85730; 87040; 87077; 87081; 87186; 92508; 92616; 93005; 93308; 96361; 96374; 96375; 97110; 97112; 97162; 97530; 97535; 99285; G0378; J0360; J0692; J0696; J1650; J1815; J2270; J2405; J3370; J7030; J7040; Q0163; Q9967

== ENCOUNTER 2023-10-31 13:07 | Inpatient (IN) | payer BC ==
[~2023-10-31] VITALS: Ht 180.3 cm; Wt 113.6 kg
[~2023-10-31 13:07] MED LIST changes: +AMI200T PO; -AMIO200T61 PO
[2023-10-31] MEDS ORDERED: normal saline 1000ML IV soln IVB ONE (13:25)
[2023-10-31 13:38] LABS: BASOPHILS # (AUTO) 0.1 X10'3 (0-0.2); BASOPHILS % (AUTO) 0.8 % (0-1); EOSINOPHILS # (AUTO) 0.2 X10'3 (0-0.9); EOSINOPHILS % (AUTO) 2.2 % (0-6); HEMOGLOBIN 16.7 g/dl (14.0-17.9); LYMPHOCYTES # (AUTO) 1.8 X10'3 (1.1-4.8); LYMPHOCYTES % (AUTO) 21.9 % (21-51); MEAN CORPUSCULAR HEMOGLOBIN 28.4 PG (27.0-31.0); MEAN CORPUSCULAR HGB CONC 32.8 g/dL (33.0-36.5); MEAN CORPUSCULAR VOLUME 86.5 FL (78-98); MEAN PLATELET VOLUME 9.7 FL (7.4-10.4); MONOCYTES % (AUTO) 11.9 % (2-12); NEUTROPHILS # (AUTO) 5.1 X10'3 (1.8-7.7); NEUTROPHILS % (AUTO) 63.2 % (42-75); PLATELET COUNT 216 X10'3 (140-440); RED CELL DISTRIBUTION WIDTH 15.8 % (11.5-14.5); WHITE BLOOD COUNT 8.1 X10'3 (4.5-11.0)
[2023-10-31 13:49] LABS: ALANINE AMINOTRANSFERASE 28 U/L (12-78); ALBUMIN 3.2 G/DL (3.4-5.0); ALBUMIN/GLOBULIN RATIO 0.7 (1.1-1.5); ALKALINE PHOSPHATASE 84 IU/L (46-116); ANION GAP 5 (8-16); ASPARTATE AMINO TRANSFERASE 15 U/L (10-37); BILIRUBIN,TOTAL 0.8 MG/DL (0.1-1.0); BLOOD UREA NITROGEN 32 MG/DL (7-18); BUN/CREATININE RATIO 11.2 (10.0-20.0); CALCIUM 8.8 MG/DL (8.5-10.1); CHLORIDE 102 MMOL/L (99-107); CREATININE 2.85 MG/DL (0.60-1.10); GLUCOSE 215 MG/DL (70-104); POTASSIUM 4.7 MMOL/L (3.5-5.1); SODIUM 133 MMOL/L (135-145); TOTAL CARBON DIOXIDE 25.7 MMOL/L (24-32); TOTAL PROTEIN 7.6 G/DL (6.4-8.2); eCRCL 29 ML/MIN; eGFR 23 ML/MIN
[2023-10-31 13:55] LABS: PRO BRAIN NATRIURETIC PEPTIDE 1479 PG/ML (0-125)
[2023-10-31 14:27] LABS: D-DIMER 0.75 MG/L FEU (0-0.50)
[2023-10-31 14:41] LABS: BILIRUBIN,URINE NEGATIVE (Neg); CLARITY,URINE CLEAR (Clear); COLOR,URINE YELLOW (Yellow); GLUCOSE, URINE >=1000 mg/dl (Neg); KETONES,URINE NEGATIVE (Neg); LEUKOCYTE ESTERASE ,URINE NEGATIVE (Neg); NITRITES, URINE NEGATIVE (Neg); OCCULT BLOOD,URINE NEGATIVE (Neg); PROTEIN,URINE NEGATIVE (Neg); UROBILINOGEN,URINE 0.2 E.U/dL (0.2-1.0)
[2023-10-31 14:46] LABS: UA COLLECTION TYPE STRAIGHT CATH
[2023-10-31 14:48] LABS: FINE GRANULAR CAST 0-3 /LPF (NEGATIVE)
[2023-10-31 14:50] LABS: TRANSITIONAL EPI CELLS,URINE FEW /HPF
[2023-10-31 15:01] LABS: RENAL CELLS, URINE FEW /HPF; SQUAMOUS EPITHELIAL CELL,UR FEW /LPF (FEW)
[2023-10-31 15:03] LABS: CAL OXALATE CRYSTALS 3+ /HPF (NEGATIVE)
[2023-10-31 15:04] LABS: BACTERIA,URINE FEW /HPF (Neg); WBC,URINE 0-4 /HPF (0-4)
[2023-10-31] MEDS ORDERED: potassium Cl 40MEQ/1/2NS 520ml 520 ML IV PRN (22:55)
[2023-10-31] MEDS ORDERED: magnesium 4gm in 100ml NS 100 ML IV PRN (22:55)
[2023-10-31] MEDS ORDERED: acetaminophen 325mg tablet PO PRN (22:55)
[2023-10-31] MEDS ORDERED: mag hydrox/Alum hydrox/simeth 30ml oral suspension PO PRN (22:55)
[2023-10-31] MEDS ORDERED: magnesium Cl slow-release 64mg tablet PO PRN (22:55)
[2023-10-31] MEDS ORDERED: magnesium 2GM in 50ml NS 50 ML IV PRN (22:55)
[2023-10-31] MEDS ORDERED: ondansetron/PF 4mg/2ml inj IV PRN (22:55)
[2023-10-31] MEDS ORDERED: magnesium hydroxide 30ml (MOM) UD suspension PO PRN (22:55)
[2023-10-31] MEDS ORDERED: potassium Cl 20 mEq SR tablet PO PRN ×2 (22:55)
[2023-10-31] MEDS ORDERED: insulin Lispro (HumaLOG) vial - multi-dose SQ SCH (23:10)
[2023-10-31] MEDS ORDERED: glucagon, human recombinant 1mg kit SUBCUT PRN (23:10)
[2023-10-31] MEDS ORDERED: dextrose 50%-water 50ml dispensing syringe IV PRN ×2 (23:10)
[2023-10-31] MEDS ORDERED: MESSAGE TO PHARMACY PO ONE (23:10)
[2023-10-31] MEDS ORDERED: DEXTROSE 15 GM of carb/4 tabs (each vial/BOTTLE has 4 tablets) PO PRN ×2 (23:10)
[2023-11-01] VITALS (9 sets, daily range): BP systolic 108–166; BP diastolic 60–102; PULSE 52–69; RESP 12–20; TEMP 97.7–98.5; O2SAT 94–99
[2023-11-01] MEDS: normal saline 1000ml 1,000 ML IV SCH ×2 (01:57→15:35)
[2023-11-01 07:37] LABS: BASOPHILS # (AUTO) 0.1 X10'3 (0-0.2); BASOPHILS % (AUTO) 0.9 % (0-1); EOSINOPHILS # (AUTO) 0.2 X10'3 (0-0.9); EOSINOPHILS % (AUTO) 1.9 % (0-6); HEMATOCRIT 47.9 % (42.0-52.0); LYMPHOCYTES # (AUTO) 2.3 X10'3 (1.1-4.8); LYMPHOCYTES % (AUTO) 24.6 % (21-51); MEAN CORPUSCULAR HEMOGLOBIN 28.6 PG (27.0-31.0); MEAN CORPUSCULAR HGB CONC 33.3 g/dL (33.0-36.5); MEAN CORPUSCULAR VOLUME 85.9 FL (78-98); MEAN PLATELET VOLUME 9.7 FL (7.4-10.4); MONOCYTES # (AUTO) 1.1 X10'3 (0-0.9); MONOCYTES % (AUTO) 11.3 % (2-12); NEUTROPHILS # (AUTO) 5.8 X10'3 (1.8-7.7); NEUTROPHILS % (AUTO) 61.3 % (42-75); PLATELET COUNT 193 X10'3 (140-440); RED BLOOD COUNT 5.58 X10'6 (4.70-6.10); RED CELL DISTRIBUTION WIDTH 15.8 % (11.5-14.5); WHITE BLOOD COUNT 9.4 X10'3 (4.5-11.0)
[2023-11-01] MEDS: K and/or MAG REPLACEMENT MC SCH ×2 (08:00→19:54)
[2023-11-01] MEDS: docusate sod 100mg capsule PO SCH ×2 (08:00→19:54)
[2023-11-01 08:04] LABS: ALANINE AMINOTRANSFERASE 21 U/L (12-78); ALBUMIN/GLOBULIN RATIO 0.8 (1.1-1.5); ALKALINE PHOSPHATASE 86 IU/L (46-116); ANION GAP 7 (8-16); ASPARTATE AMINO TRANSFERASE 21 U/L (10-37); BILIRUBIN,TOTAL 0.9 MG/DL (0.1-1.0); BLOOD UREA NITROGEN 33 MG/DL (7-18); BUN/CREATININE RATIO 14.6 (10.0-20.0); CALCIUM 8.5 MG/DL (8.5-10.1); CHLORIDE 106 MMOL/L (99-107); CREATININE 2.26 MG/DL (0.60-1.10); GLUCOSE 113 MG/DL (70-104); MAGNESIUM 1.9 MG/DL (1.5-2.4); POTASSIUM 4.4 MMOL/L (3.5-5.1); SODIUM 139 MMOL/L (135-145); eCRCL 37 ML/MIN; eGFR 30 ML/MIN
[2023-11-01] MEDS ORDERED: albuterol 2.5 MG/3 ML nebule NEB PRN (16:00)
[2023-11-01] MEDS ORDERED: baclofen 10mg tablet PO PRN (16:00)
[2023-11-01] MEDS: lisinopril 10 MG tablet PO SCH (19:53)
[2023-11-01] MEDS: carVEDilol 12.5mg tablet PO SCH (19:54)
[2023-11-01] MEDS: atorvastatin 20mg tablet PO SCH (19:54)
[2023-11-01] MEDS: apixaban 5mg tablet PO SCH (19:54)
[2023-11-01 22:14] LABS: THYROID STIMULATING HORMONE 1.07 ulU/ml (0.34-4.50)
[2023-11-02] VITALS (11 sets, daily range): BP systolic 122–182; BP diastolic 73–105; PULSE 60–75; RESP 13–17; TEMP 97.4–98.4; O2SAT 94–100
[2023-11-02 06:37] LABS: BASOPHILS # (AUTO) 0.1 X10'3 (0-0.2); BASOPHILS % (AUTO) 1.1 % (0-1); EOSINOPHILS # (AUTO) 0.2 X10'3 (0-0.9); EOSINOPHILS % (AUTO) 2.7 % (0-6); HEMATOCRIT 47.5 % (42.0-52.0); HEMOGLOBIN 15.7 g/dl (14.0-17.9); LYMPHOCYTES # (AUTO) 2.3 X10'3 (1.1-4.8); LYMPHOCYTES % (AUTO) 30.5 % (21-51); MEAN CORPUSCULAR HEMOGLOBIN 28.4 PG (27.0-31.0); MEAN CORPUSCULAR VOLUME 85.9 FL (78-98); MEAN PLATELET VOLUME 9.8 FL (7.4-10.4); MONOCYTES # (AUTO) 0.9 X10'3 (0-0.9); MONOCYTES % (AUTO) 12.1 % (2-12); NEUTROPHILS # (AUTO) 4.1 X10'3 (1.8-7.7); NEUTROPHILS % (AUTO) 53.6 % (42-75); PLATELET COUNT 165 X10'3 (140-440); RED BLOOD COUNT 5.52 X10'6 (4.70-6.10); RED CELL DISTRIBUTION WIDTH 15.3 % (11.5-14.5); WHITE BLOOD COUNT 7.7 X10'3 (4.5-11.0)
[2023-11-02 06:53] LABS: ALANINE AMINOTRANSFERASE 27 U/L (12-78); ALBUMIN 2.8 G/DL (3.4-5.0); ALBUMIN/GLOBULIN RATIO 0.6 (1.1-1.5); ALKALINE PHOSPHATASE 83 IU/L (46-116); ANION GAP 5 (8-16); ASPARTATE AMINO TRANSFERASE 19 U/L (10-37); BILIRUBIN,TOTAL 1.1 MG/DL (0.1-1.0); BLOOD UREA NITROGEN 28 MG/DL (7-18); BUN/CREATININE RATIO 15.3 (10.0-20.0); CALCIUM 8.3 MG/DL (8.5-10.1); CHLORIDE 105 MMOL/L (99-107); CREATININE 1.83 MG/DL (0.60-1.10); GLUCOSE 121 MG/DL (70-104); MAGNESIUM 1.8 MG/DL (1.5-2.4); POTASSIUM 4.3 MMOL/L (3.5-5.1); SODIUM 137 MMOL/L (135-145); TOTAL CARBON DIOXIDE 27.5 MMOL/L (24-32); TOTAL PROTEIN 7.3 G/DL (6.4-8.2); eCRCL 45 ML/MIN; eGFR 38 ML/MIN
[2023-11-02] MEDS: K and/or MAG REPLACEMENT MC SCH ×2 (08:00→19:54)
[2023-11-02] MEDS ORDERED: non-formulary drug (Ubidecarenone (Coq-10) 300 MG) PO SCH (08:00)
[2023-11-02] MEDS: docusate sod 100mg capsule PO SCH ×2 (08:00→19:58)
[2023-11-02] MEDS: levoTHYROXINE 100mcg tablet PO SCH (08:20)
[2023-11-02] MEDS: carVEDilol 12.5mg tablet PO SCH ×2 (08:21→19:57)
[2023-11-02] MEDS: apixaban 5mg tablet PO SCH ×2 (08:21→19:58)
[2023-11-02] MEDS: lisinopril 10 MG tablet PO SCH ×2 (08:21→19:58)
[2023-11-02] MEDS: cholecalciferol (vitamin D3) 1,000 unit (25mcg) tablet PO SCH (08:22)
[2023-11-02] MEDS: pantoprazole 40mg Tablet.DR PO SCH (08:22)
[2023-11-02] MEDS: spironolactone 25 MG tablet PO SCH (08:23)
[2023-11-02] MEDS: normal saline 1000ml 1,000 ML IV SCH (08:27)
[2023-11-02] MEDS: amiodarone 200mg tablet PO SCH (13:01)
[2023-11-02] MEDS: atorvastatin 20mg tablet PO SCH (19:57)
[2023-11-03] MEDS: normal saline 1000ml 1,000 ML IV SCH (00:55)
[2023-11-03 02:00] VITALS: BP 165/99; PULSE 63; RESP 15; TEMP 98.1; O2SAT 96
[2023-11-03 06:12] VITALS: BP 146/101; PULSE 66; RESP 14; TEMP 97.7; O2SAT 95
[2023-11-03 07:08] LABS: BASOPHILS # (AUTO) 0.1 X10'3 (0-0.2); EOSINOPHILS # (AUTO) 0.2 X10'3 (0-0.9); HEMATOCRIT 47.1 % (42.0-52.0); HEMOGLOBIN 15.8 g/dl (14.0-17.9); LYMPHOCYTES # (AUTO) 2.4 X10'3 (1.1-4.8); LYMPHOCYTES % (AUTO) 30.9 % (21-51); MEAN CORPUSCULAR HEMOGLOBIN 28.8 PG (27.0-31.0); MEAN CORPUSCULAR HGB CONC 33.6 g/dL (33.0-36.5); MEAN CORPUSCULAR VOLUME 85.9 FL (78-98); MEAN PLATELET VOLUME 10.1 FL (7.4-10.4); MONOCYTES # (AUTO) 1.1 X10'3 (0-0.9); MONOCYTES % (AUTO) 14.2 % (2-12); NEUTROPHILS # (AUTO) 3.9 X10'3 (1.8-7.7); NEUTROPHILS % (AUTO) 50.9 % (42-75); PLATELET COUNT 177 X10'3 (140-440); RED BLOOD COUNT 5.48 X10'6 (4.70-6.10); WHITE BLOOD COUNT 7.7 X10'3 (4.5-11.0)
[2023-11-03] MEDS: cholecalciferol (vitamin D3) 1,000 unit (25mcg) tablet PO SCH (07:29)
[2023-11-03] MEDS: docusate sod 100mg capsule PO SCH (07:30)
[2023-11-03] MEDS: pantoprazole 40mg Tablet.DR PO SCH (07:30)
[2023-11-03] MEDS: amiodarone 200mg tablet PO SCH (07:31)
[2023-11-03] MEDS: carVEDilol 12.5mg tablet PO SCH (07:31)
[2023-11-03] MEDS: levoTHYROXINE 100mcg tablet PO SCH (07:31)
[2023-11-03] MEDS: lisinopril 10 MG tablet PO SCH (07:31)
[2023-11-03] MEDS: apixaban 5mg tablet PO SCH (07:32)
[2023-11-03 07:34] VITALS: BP_SYST 141; PULSE 80
[2023-11-03] MEDS: spironolactone 25 MG tablet PO SCH (07:34)
[2023-11-03 07:57] LABS: ALANINE AMINOTRANSFERASE 29 U/L (12-78); ALBUMIN 2.9 G/DL (3.4-5.0); ALBUMIN/GLOBULIN RATIO 0.7 (1.1-1.5); ALKALINE PHOSPHATASE 85 IU/L (46-116); ANION GAP 8 (8-16); ASPARTATE AMINO TRANSFERASE 27 U/L (10-37); BILIRUBIN,TOTAL 1.1 MG/DL (0.1-1.0); BLOOD UREA NITROGEN 26 MG/DL (7-18); BUN/CREATININE RATIO 13.6 (10.0-20.0); CALCIUM 8.9 MG/DL (8.5-10.1); CHLORIDE 104 MMOL/L (99-107); CHOL/HDL RATIO 4.7 (0.00-4.99); CHOLESTEROL 210 MG/DL (0-200); CREATININE 1.91 MG/DL (0.60-1.10); GLUCOSE 138 MG/DL (70-104); HDL CHOLESTEROL 45 MG/DL (35-60); LDL CHOLESTEROL 138 MG/DL (50-100); MAGNESIUM 1.8 MG/DL (1.5-2.4); POTASSIUM 4.6 MMOL/L (3.5-5.1); SODIUM 137 MMOL/L (135-145); TOTAL CARBON DIOXIDE 25.3 MMOL/L (24-32); TOTAL PROTEIN 7.3 G/DL (6.4-8.2); TRIGLYCERIDES 96 MG/DL (20-135); eCRCL 43 ML/MIN; eGFR 36 ML/MIN
[2023-11-03] MEDS ORDERED: aspirin 81mg, enteric-coated 1 TAB TABLET.DR PO SCH (08:00)
[2023-11-03] MEDS: K and/or MAG REPLACEMENT MC SCH (08:00)
[2023-11-03 08:48] VITALS: RESP 16; O2SAT 96
[2023-11-03] MEDS ORDERED: ATOR20TA PO (10:37)
[2023-11-03] MEDS ORDERED: ASPI-1071 PO (10:37)
== END 2023-11-03 12:26 | disposition home or self-care (01) | DRG 64 ==
LOC: ER 13:07 → ED HOLD 23:06 → EDBEDREQ 11-01 05:46 → PCU 3S 11-01 07:02
PROVIDERS: ADMIT Internal Medicine; ATTEND Internal Medicine
PROC: 5A09357 Assistance with Respiratory Ventilation, Less than 24 Consecutive Hours, Continuous Positive Airway Pressure (ICD-10-PCS; 2023-11-01)
PROC: 4A10X4Z Monitoring of Central Nervous Electrical Activity, External Approach (ICD-10-PCS; principal; 2023-11-02)
DX: I63.9 Cerebral infarction, unspecified (principal); I50.23 Acute on chronic systolic (congestive) heart failure; N17.0 Acute kidney failure with tubular necrosis; I13.0 Hypertensive heart and chronic kidney disease with heart failure and stage 1 through stage 4 chronic kidney disease, or unspecified chronic kidney disease; I42.2 Other hypertrophic cardiomyopathy; K21.9 Gastro-esophageal reflux disease without esophagitis; G47.33 Obstructive sleep apnea (adult) (pediatric); G89.29 Other chronic pain; I48.91 Unspecified atrial fibrillation; N18.9 Chronic kidney disease, unspecified; E11.22 Type 2 diabetes mellitus with diabetic chronic kidney disease; Z86.73 Personal history of transient ischemic attack (TIA), and cerebral infarction without residual deficits; Z88.0 Allergy status to penicillin; Z79.899 Other long term (current) drug therapy; Z79.01 Long term (current) use of anticoagulants
CPT/HCPCS: 36415; 70450; 70551; 71045; 76770; 80053; 80061; 81001; 82948; 83605; 83735; 83880; 84145; 84443; 84484; 85025; 85379; 85651; 93306; 93880; 94660; 94760; 95816; 97116; 97161; 97530; 99285; A6258; C1758; G0378; J1815; J7030; J7040

== ENCOUNTER 2025-09-28 19:21 | Inpatient (IN) | payer MEDICARE ==
[~2025-09-28] VITALS: Ht 188 cm; Wt 101.0 kg
[~2025-09-28 19:21] MED LIST changes: -AMI200T PO; +AMIO200T76 PO; +ASPI-1071 PO
--- NOTE | 2025-09-28 19:33 | Physician Documentation ---
History of Present Illness ~ Chief Complaint: Stroke Alert Stated Complaint: STROKE Time Seen by MD: 19:22 Primary Medical Doctor: Dr. Hill, DR MARTINEZ HPI Patient presents to the emergency room with expressive aphasia. Last time known normal at 11:00 a.m. that has when he was seen. History of previous stroke with residual deficits. He is on Coumadin. Patient has severely slurred speech with a left-sided gaze. No history of seizures. Medication Reconciliation Allergies: Coded Allergies: Penicillins (Verified Allergy, Intermediate, HIVE,RASH,"EYE BULGING", 07/20/25) Scheduled Amiodarone Hcl (Cordarone), 1 TAB PO DAILY, (Reported) Apixaban (Eliquis), 1 TAB PO Q12H, (Reported) Aspirin (Ecotrin*), 1 TAB PO DAILY Atorvastatin Calcium (Lipitor), 2 TAB PO DAILY Carvedilol (Carvedilol), 1 TABLET PO BID, (Reported) Glyburide (Glyburide), 1 TAB PO BID, (Reported) Levothyroxine Sodium (Synthroid), 1 TAB PO DAILY, (Reported) Metformin HCl (Metformin HCl), 1 TAB PO BID, (Reported) Pantoprazole Sodium (PROTONIX tablet), 1 TAB PO DAILY, (Reported) Spironolactone (Spironolactone), 1 TAB PO DAILY, (Reported) Ubidecarenone (Coq-10), 300 MG PO DAILY, (Reported) [Lisinopril 10 mg], 1 TAB BID, (Reported) [Vitamin D], 1 TAB PO DAILY, (Reported) Scheduled PRN Albuterol Sulfate (Proair Hfa), 2 PUFFS INH Q4HPRN PRN for wheezing, (Reported) Baclofen (Baclofen), 1 TABLET PO BID PRN for muscle spasms, (Reported) Past Medical History Past Medical History: Epistaxis, Atrial Fibrillation, Congestive Heart Failure, Hypertension, GERD, Diabetes, Chronic Pain Past Surgical History: other Patient History: Patient reports no known family medical history. Alcohol Use: Occasionally Drug Use: none Lives In: Home Review of Systems ROS All review of systems negative except as per HPI Progress Progress Note Spoke with neurologist who did not see large vessel occlusion however recommended get in CT perfusion scan that has there may be thrombectomy possible. I have consulted personally with neuro interventionalist at [facility] who has viewed the images in his not see and intervention possible. States he sees a large infarct of his left hemisphere Results/Orders Results/Orders Orders - SATISH PIERRE MD Electrocardiogram (09/28/25 19:22) Type And Screen (09/28/25 19:22) Urinalysis, Cult If Indicated (09/28/25 19:22) Drug Screen, Urine (09/28/25 19:22) Chest,Single View (09/28/25 19:52) Ct Stroke Alert (09/28/25 19:22) Cta Neck/Head (09/28/25 19:22) * Vital Signs Routine* [id number] (09/28/25 19:22) * Blood Glucose Assessment * ONCE (09/28/25 19:22) * Npo Until Passed Bedside Swa (09/28/25 19:22) Nursing Swallow Screen (09/28/25 19:22) Page Hospitalist (09/28/25 20:21) Fill Out Med Reconciliation (09/28/25 20:21) Completed Orders - SATISH PIERRE MD Cbc/Diff (09/28/25 19:22) BMP (09/28/25 19:22) Pt Inr (09/28/25 19:22) PTT (09/28/25 19:22) Chest,Single View (09/28/25 19:52) Ct Stroke Alert (09/28/25 19:22) Cta Neck/Head (09/28/25 19:22) Iohexol 350mg/Ml 100ml (Omnipaque 350mg/ (09/28/25 20:14) Vital Signs 09/28/25 09/28/25 09/28/25 09/28/25 19:39 19:43 19:55 20:06 Pulse 115 105 110 Resp B/P (MAP) 173/126 178/123 178/123 Pulse Ox 97 99 95 09/28/25 09/28/25 09/28/25 09/28/25 20:10 20:14 20:30 20:45 Temp 98.5 Pulse 94 89 104 90 Resp B/P (MAP) 168/115 137/115 (122) 177/141 188/110 Pulse Ox 96 96 96 96 O2 Flow Rate 1.0 09/28/25 09/28/25 09/28/25 20:58 21:00 21:17 Temp 98.5 Pulse 110 100 91 Resp 18 26 22 B/P (MAP) 173/126 143/103 146/110 (122) Pulse Ox 97 96 95 O2 Flow Rate 0 1.0 Laboratory Tests Test 09/28/25 19:41 09/28/25 20:05 White Blood Count 8.2 Red Blood Count 5.75 Hemoglobin 16.7 Hematocrit 50.2 Mean Corpuscular Volume 87.3 Mean Corpuscular Hemoglobin 29.0 Mean Corpuscular Hemoglobin Concent 33.2 Red Cell Distribution Width 16.9 H Platelet Count 159 Mean Platelet Volume 10.8 H Neutrophils (%) (Auto) 72.3 Lymphocytes (%) (Auto) 14.1 L Monocytes (%) (Auto) 12.0 Eosinophils (%) (Auto) 0.8 Basophils (%) (Auto) 0.8 Neutrophils # (Auto) 6.0 Lymphocytes # (Auto) 1.2 Monocytes # (Auto) 1.0 H Eosinophils # (Auto) 0.1 Basophils # (Auto) 0.1 CBC Comment Prothrombin Time 14.9 H INR International Normalized Ratio 1.5 Activated Partial Thromboplast Time 32 Coagulation Comments Sodium Level 136 Potassium Level 4.2 Chloride Level 104 Carbon Dioxide Level 24.5 Anion Gap 8 Blood Urea Nitrogen 26 H Creatinine 1.76 H Estimated GFR/1.73 m2 39 BUN/Creatinine Ratio 14.8 Glucose Level 140 H Calcium Level 8.2 L Albumin 2.5 L Chemistry Comments Glucometer 177 H EKG/XRAY/CT/US/VASC/MRI EKG : Additional Comment EKG interpreted by myself shows time of 1936, rate 114, atrial fibrillation, left axis deviation, nonspecific ST-T changes, left bundle-branch block Chest X-Ray : Additional Comments Exam: CHEST,SINGLE VIEW CHEST RADIOGRAPH Indication: Stroke Alert Technique: 1 view Comparison: DI CHEST,SINGLE VIEW on DOS: 07/20/25, DI CHEST,SINGLE VIEW on DOS: 10/31/23, CHEST,SINGLE VIEW on DOS: 02/23/22, CHEST,SINGLE VIEW on DOS: 02/14/22 FINDINGS: Lines and Tubes: External leads. Lungs/Pleura: Similar bilateral perihilar interstitial opacities. No evidence of acute consolidation, pleural effusion or pneumothorax. The right costophrenic angle is excluded. Cardiomediastinum: Unchanged, mildly enlarged heart size. Other: No acute osseous abnormality. IMPRESSION: Similar findings associated with heart failure. No significant change from 07/20/2025. Medical Decision Making Additional information obtaine: old records Findings Patient presents to the emergency room with altered mental status and one-sided weakness as per HPI. Differentials include but are not limited to hemorrhagic stroke, ischemic stroke, seizures, Fox's paralysis therefore emergent labs and imaging indicated. Consulted with neurology her for me to neuro interventionalist who reviewed the images that has not see intervention possible. He is on Coumadin. Differential Dx:Considerations: Include: Phillips's Palsey, CVA, Delirium tremens, DKA, Drug overdose, Electrolyte imbalance, Encephalopathy, Hypoxemia, Hy poglycemia, Mass lesion, Respiratory failure, Subarachnoid Hemorrhage, TIA, Other Departure Admitted to Inpatient Unit: yes, to hospitalist Impression: Primary Impression: Cerebral infarction Condition: Guarded Referrals: NO PRIMARY CARE PROVIDER (PCP) Critical Care Note Total Time (mins): 45 Critical Care Note The very real possibility of a deterioration of this patient's condition required the highest level of my preparedness for sudden, emergent intervention. I provided critical care services, which included medication orders, frequent reevaluations of the patient's condition and response to treatment, ordering and reviewing test results, and discussing the case with various consultants. Excludes time spent performing separately billable procedures. The critical care time associated with the care of the patient was 45 minutes not counting procedures Signature Scribe Signature: No scribe Attestation: The note accurately reflects work and decisions made by me.Satish Pierre MD 09/28/25 20:17 SATISH PIERRE MD Sep 28, 2025 19:33
--- NOTE | 2025-09-28 19:50 | RADIOLOGY REPORT ---
Procedure: CT [facility] STROKE [facility] Study Date and Requested Time: 09/28/2025 07:18 PM History: left sided weakness Comparison: CT CT HEAD on DOS: 10/31/23, CT HEAD on DOS: 02/18/22, CT HEAD on DOS: 02/16/22 Dose: CTDI: 60.01 mGy DLP: 1342.1 mGycm Technique: Multiplanar images obtained through the brain without intravenous contrast. Findings: Right frontoparietal area of encephalomalacia with right basal ganglia chronic lacunar infarct. Left denise radiata focus of hypodensity, new from 2022 which may represent lacunar infarct of unknown chronicity. Mild diffuse brain atrophy. Mild chronic small-vessel ischemic changes. No hemorrhages, masses, mass effect, midline shift, or herniation. No intra- axial or extra-axial fluid collections. No evidence of hydrocephalus. The basal cisterns are patent. The pituitary gland, sella and parasellar regions are unremarkable. The cerebellar tonsils are in normal position. The cerebellum is unremarkable. The orbits and globes are unremarkable. The paranasal sinuses and mastoids are clear. There are no worrisome calvarial lesions. Impression: Hypodense focus over the left denise radiata which may represent lacunar infarct of unknown chronicity, new from 2022. Otherwise, no evidence of acute intracranial abnormalities. Right basal ganglia and right frontoparietal areas of chronic infarct. Critical Result: Stroke Alert Findings discussed with Dr. Pierre, at 09/28/2025 07:48 PM, and acknowledged receipt and understanding of the findings. ..
[2025-09-28 20:01] LABS: APTT 32 SECONDS (22-32); INR 1.5 INR
--- NOTE | 2025-09-28 20:01 | RADIOLOGY REPORT ---
INDICATION: left sided weakness COMPARISON: None TECHNIQUE:CTA head and neck with intravenous contrast. 3D/MIP image postprocessing was performed and images were used for interpretation and reporting. Radiation Dose Information: CT Dose: CTDI volume is 61.21 mGy. Dose-length product is 568.39 mGy*cm FINDINGS: CTA neck: 3-vessel origin left-sided aortic arch with common origin of the left common carotid artery and brachiocephalic artery. Bilateral subclavian and bilateral common carotid arteries unremarkable. Motion artifact limits evaluation of the mid left ICA. Otherwise, the bilateral cervical ICAs are unremarkable. Bilateral vertebral arteries are unremarkable and codominant. CTA head: Bilateral ACAS, anterior communicating artery and bilateral MCAs are unremarkable. Bilateral intracranial ICAs unremarkable. There is short segmental mild narrowing of the left P2 segment. 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 The dural venous sinuses are not well opacified. No abnormal intracranial enhancement. The thyroid gland is unremarkable. The lung apices are clear. 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 Otherwise, no hemodynamically significant stenosis involving the major intracranial and neck vessels.
[2025-09-28 20:04] LABS: CREATININE 1.76 MG/DL (0.60-1.10); TOTAL CARBON DIOXIDE 24.5 MMOL/L (24-32); eCRCL 50 ML/MIN; eGFR 39 ML/MIN
--- NOTE | 2025-09-28 20:07 | RADIOLOGY REPORT ---
CHEST RADIOGRAPH Indication: Stroke Alert Technique: 1 view Comparison: DI CHEST,SINGLE VIEW on DOS: 07/20/25, DI CHEST,SINGLE VIEW on DOS: 10/31/23, CHEST,SINGLE VIEW on DOS: 02/23/22, CHEST,SINGLE VIEW on DOS: 02/14/22 FINDINGS: Lines and Tubes: External leads. Lungs/Pleura: Similar bilateral perihilar interstitial opacities. No evidence of acute consolidation, pleural effusion or pneumothorax. The right costophrenic angle is excluded. Cardiomediastinum: Unchanged, mildly enlarged heart size. Other: No acute osseous abnormality. IMPRESSION: Similar findings associated with heart failure. No significant change from 07/20/2025.
[2025-09-28 20:08] LABS: MEAN PLATELET VOLUME 10.8 FL (7.4-10.4); RED CELL DISTRIBUTION WIDTH 16.9 % (11.5-14.5)
[2025-09-28] MEDS ORDERED: mag hydrox/Alum hydrox/simeth 30ml oral suspension PO PRN (21:50)
[2025-09-28] MEDS ORDERED: diazepam inj 5 MG/ML inj. IV PRN (21:50)
[2025-09-28] MEDS ORDERED: magnesium hydroxide 30ml (MOM) UD suspension PO PRN (21:50)
--- NOTE | 2025-09-28 22:27 | HISTORY AND PHYSICAL-Residence ---
History & Physical Providers to CC Resident Creating Document: MELA WALTER, RES ~ History of Present Illness Primary Medical Doctor: Dr. Hill, DR MARTINEZ Reason for Admit\\Complaint: Altered level of consciousness, aphasia History of Present Illness This is a 65-year-old male with history of atrial fibrillation, CHF, hypertension, type 2 diabetes, hyperlipidemia, chronic pain syndrome, GERD was brought to the ED by his sons the chief complaint of aphasia and confusion. Patient is not alert, awake, oriented at the time of evaluation. Most of the history was taken from the ED physician and son. According to the son, last time known normal was at 11:00 a.m. the patient was trying to go to the restroom and was unable to maintain balance. The patient was not making sense when he was talking, according to son. This concerned the son and hence they brought him to the ED. During the ER doctor evaluation patient has severely speech slurred speech with left-sided gaze. No history of seizures in the past. On my evaluation patient was unable to open his eyes, not following commands, no verbal response GCS 3. Patient was in AFib with heart rate of 110 and systolic blood pressure was in the high 180s. Laboratory workup showed ROMA with a creatinine of 1.76 and elevated blood sugar of 177, INR was 1.5. CT head showed hypodense focus over the left coronary radiata likely lacunar infarct new from 2022. Also showed chronic right basal ganglia and right frontoparietal area infarcts. CTA head and neck showed segmental mild narrowing of the P2 segment of left [employer]. patient lives with his son but son is unsure if the patient is regularly taking his Coumadin for his AFib. His [facility] was 1.2 (not in therapeutic range). Patient goes to the [facility]mad[facility] clinic once a week and Dr. fernando tobar is his interactive art director. Patient had previous history of strokes and had risk factors including hypertension, diabetes, hyperlipidemia and atrial fibrillation. Patient has residual weakness from previous strokes but is able to ambulate usually at home. Patient also has some shortness of breath according to the son, he does not use any oxygen at home. He is on 2 L of oxygen through nasal cannula in the ED currently, which is new. During conversation with the patient's son, the patient's son who is the power of tax attorney expressed his opinion about keeping his father comfortable. I explained to him about various resuscitative methods including full code, DNR, DNI, DNR with comfort care. Patient has expressed that they would like to stop all the treatment and keep his father only on comfort measures. When asked if his father wishes for the same, the son mentioned that they had this conversation before and his father also wants the same. Patient son endorsed that they will not be able to take care of the patient at home and need admission for comfort care measures. Hence patient was admitted and initiated on comfort care measures. Hospice care to be discussed by correctional casework specialist with son in the a.m. Allergies: Coded Allergies: Penicillins (Verified Allergy, Intermediate, HIVE,RASH,"EYE BULGING", 07/20/25) Home Medications Home Medications Active Ecotrin* (Aspirin) 81 Mg Tablet.dr 1 Tab PO DAILY Lipitor (Atorvastatin Calcium) 20 Mg Tablet 2 Tab PO DAILY 30 Days Reported Synthroid (Levothyroxine Sodium) 100 Mcg Tablet 1 Tab PO DAILY [Vitamin D] 1 Tab PO DAILY Proair Hfa (Albuterol Sulfate) 1 Puff Inh 2 Puffs INH Q4HPRN PRN 21 Days [Lisinopril 10 mg] 1 Tab BID Carvedilol 25 Mg Tablet 1 Tablet PO BID Spironolactone 25 Mg Tablet 1 Tab PO DAILY Baclofen 10 Mg Tablet 1 Tablet PO BID PRN Cordarone (Amiodarone HCl) 200 Mg Tablet 1 Tab PO DAILY 30 Days Glyburide 2.5 Mg Tablet 1 Tab PO BID 30 Days Eliquis (Apixaban) 5 Mg Tablet 1 Tab PO Q12H 30 Days Coq-10 (Ubidecarenone) 100 Mg Capsule 300 Mg PO DAILY PROTONIX tablet (Pantoprazole Sodium) 40 Mg Tablet.dr 1 Tab PO DAILY 30 Days Metformin HCl 1,000 Mg Tablet 1 Tab PO BID 30 Days Past Medical History Past Medical History Per son, Systolic heart failure Atrial fibrillation 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 Past Social History Social History Comment Per son, Alcohol: Denies Tobacco: Denies, never Illicit drug use: Denies Living situation: Lives at home with son Alcohol Use: Occasionally Drug Use: None Lives In: Home ROS ROS Unable to obtain Exam Vitals: Vital Signs Date Time Temp Pulse Resp B/P (MAP) Pulse Ox O2 Delivery O2 Flow Rate FiO2 09/28/25 21:17 91 22 146/110 (122) 95 1.0 09/28/25 20:58 98.5 General: General: Not Awake and Alert, oriented, not opening eyes , in mild acute distress. HEENT: Conjunctiva pink, Sclera clear, Mucus Membranes moist Neck: Supple without masses and tenderness. Resp: Unlabored. Equal breath sounds bilaterally. On 2 L oxygen Heart: Irregular rate and rhythm, normal S1 and S2, no rub, murmur or gallop, muffled heart sounds. Abdomen: Soft and non tender no organomegaly. Normal bowel sounds x4 quadrant normoactive. No guarding or rigidity. Extremities: Normal ROM, no swelling, nontender. No cyanosis,clubbing or edema. DIRECTOR OF DIETARY: Unable to perform due to lack of patient cooperation and GCS three Skin: Warm and Dry. Diagnostic Data Last Recorded Lab Results: 09/28/25194009/28/251940 Diagnostic Data: Laboratory Tests Test 09/28/25 19:41 Prothrombin Time 14.9 SECONDS (9.0-12.0) H INR International Normalized Ratio 1.5 INR Activated Partial Thromboplast Time 32 SECONDS (22-32) Coagulation Comments Advance Care Planning Advanced Care plannin - 30 Minutes (I spent a total of 17 minutes on reviewing various resuscitative measures/ ACP with the patient at the time of admission. The patient family has decided on a DNR with comfort care code status) Additional Plan Acute left lacunar stroke over the coronal radiata, new from 2022 Chronic right basal ganglia and right frontoparietal infarcts Acute hypoxemic respiratory failure Acute on chronic decompensated systolic heart failure Afib w/ RVR Medication noncompliance ROMA vs CKD stage 3b Hypertension IDDM Hyperlipidemia CVA (2021), left-sided residual weakness Initiated on comfort care measures with Ativan, morphine, social media strategist consult, laxatives, pain medication. Code Status: DNR with comfort care Analgesia/Sedation: Ativan, morphine Nutrition: NPO till swallow evaluation, regular diet thereafter Disposition: Admit to surgical floor for comfort care measures. Hospice care to be discussed by correctional casework specialist with son in the a.m. Mela Kim MD Internal Medicine Resident PGY-2 Patient was assessed and case discussed with resident. I agree with the H&P and assessment and plan as above, with no change. Karolyn Dodson MD Critical Care Date of Service: Sep 28, 2025 Billing Provider: KAROLYN DODSON MD, DEEPIKA BANDI, RES Sep 28, 2025 22:27 KAROLYN DODSON MD Sep 30, 2025 18:56
[2025-09-28] MEDS ORDERED: WARF2.5T82 PO (23:02)
[2025-09-28] MEDS ORDERED: ASPI-1397 PO (23:04)
[2025-09-28] MEDS ORDERED: LANTUS SQ (23:04)
[2025-09-28] MEDS ORDERED: CARV3.122 PO (23:04)
[2025-09-28] MEDS ORDERED: LISI2.5T14 PO (23:04)
[2025-09-28] MEDS ORDERED: EMPA10TA PO (23:04)
[2025-09-28] MEDS ORDERED: [UNRECOGNIZED DRUG - CODE] PO (23:04)
[2025-09-28] MEDS ORDERED: PANT40TA54 PO (23:04)
[2025-09-28] MEDS ORDERED: FURO20TA4 PO (23:04)
[2025-09-28] MEDS ORDERED: amiodarone (23:04)
[2025-09-28] MEDS ORDERED: ATOR-2 PO (23:04)
[2025-09-28] MEDS ORDERED: DOCU-392 PO (23:04)
[2025-09-28] MEDS ORDERED: CHOL100012 PO (23:04)
[2025-09-29] MEDS: ondansetron/PF 4mg/2ml inj IV PRN (01:14)
[2025-09-29] MEDS: morphine 10mg/ml inj. IV PRN (01:18)
[2025-09-29 02:56] VITALS: BP 143/118; PULSE 82; RESP 18; TEMP 100.2; O2SAT 96
[2025-09-29 03:42] VITALS: BP 143/118; PULSE 82; RESP 18; TEMP 100.2; O2SAT 96
--- NOTE | 2025-09-29 06:27 | ELECTROCARDIOGRAPH REPORT ---
[facility] Test Date: 2025-09-28 Test Time: 19:36:27 Pat Name: ABHAY FARR Department: [facility]-ER Patient ID: [facility]-[id number] Room: [place] [id number] A Gender: M Weight Control Engineer: : 1960 Requested By: LAURENCE QUINONES Order Number: [id number] Reading MD: Dr. West Nicole Measurements Intervals [place] Rate: 114 P: 0 ID: 0 QRS: -33 QRSD: 148 T: 144 QT: 360 QTc: 496 Interpretive Statements Atrial fibrillation Left bundle branch block Electronically Signed On 10-05-2025 20:45:[address] West Nicole Please click the below link to view image of tracing.
[2025-09-29 08:00] VITALS: RESP 16; O2SAT 93
[2025-09-29] MEDS: docusate sod 100mg capsule PO SCH (08:00)
[2025-09-29 10:00] VITALS: BP 145/100; PULSE 78; RESP 17; TEMP 98.1; O2SAT 98
[2025-09-29] MEDS ORDERED: hyoscyamine 0.125mg TAB.SUBL SL PRN (10:55)
[2025-09-29] MEDS: morphine 10mg/0.5ml (conc. morphine) oral syringe PO PRN (14:00)
--- NOTE | 2025-09-29 17:43 | PROGRESS NOTE ---
Daily Progress Note Providers to CC ~ Antibiotic Timeout Antibiotic Ordered?: No Subjective The patient will open his eyes if his name is called but otherwise he is not responding to any stimuli. The patient is has a large stroke five years ago and had recovered and was living with his son. Objective Vital Signs Date Time Temp Pulse Resp B/P (MAP) Pulse Ox O2 Delivery O2 Flow Rate FiO2 09/29/25 10:00 98.1 78 17 145/100 (115) 98 Nasal Cannula 2.0 Result Diagram: 09/28/25194009/28/251940 Gen. No acute distress asleep oriented x 0 Lungs clear to ascultation bilaterally, no wheezes rales or rhonchi appreciated Heart normal sinus rhythm no murmurs rubs or clicks noted Abdomen soft nontender bowel sounds are normoactive Lower extremities no clubbing cyanosis, nor edema appreciated bilaterally Coagulation Studies Laboratory Tests Test 09/28/25 19:41 Prothrombin Time 14.9 SECONDS (9.0-12.0) H INR International Normalized Ratio 1.5 INR Activated Partial Thromboplast Time 32 SECONDS (22-32) Coagulation Comments Problem\Assessment\Plan Acute left lacunar stroke over the coronal radiata, new from 2022 Chronic right basal ganglia and right frontoparietal infarcts Acute hypoxemic respiratory failure Acute on chronic decompensated systolic heart failure Afib w/ RVR Medication noncompliance ROMA vs CKD stage 3b Hypertension IDDM Hyperlipidemia CVA (2021), left-sided residual weakness 09/29/25 the patient is admitted as DNR comfort care I spoke to the patient's daughter at bedside and confirmed that is the family can not take the patient home for hospice. outlet manager Betzaida has refer the patient out and there is accepting facilities and a awaiting for the family to decide which facility the patient will be transferred to. Disposition: Awaiting transferred to a post acute rehab for hospice/comfort care. Date of Service: Sep 29, 2025 Billing Provider: ABHAY LIM DO Common Visit Codes: [id number] INP/OBS CARE(MOD) ABHAY LIM DO Sep 29, 2025 17:43
[2025-09-29 22:00] VITALS: BP 133/98; PULSE 78; RESP 19; TEMP 98.5; O2SAT 93
[2025-09-30 18:00] VITALS: BP 150/122; PULSE 64; RESP 22; TEMP 98; O2SAT 93
--- NOTE | 2025-09-30 20:01 | PROGRESS NOTE ---
Daily Progress Note Providers to CC ~ Antibiotic Timeout Antibiotic Ordered?: No Subjective The patient was resting comfortably in bed remains nonverbal. The family has [facility] anticipate discharge in the a.m. Objective Vital Signs Date Time Temp Pulse Resp B/P (MAP) Pulse Ox O2 Delivery O2 Flow Rate FiO2 09/30/25 19:51 22 09/30/25 08:00 Room Air 09/29/25 22:00 98.5 78 133/98 (110) 93 2.0 Result Diagram: 09/28/25194009/28/251940 Gen. No acute distress asleep oriented x 0 Lungs clear to ascultation bilaterally, no wheezes rales or rhonchi appreciated Heart normal sinus rhythm no murmurs rubs or clicks noted Abdomen soft nontender bowel sounds are normoactive Lower extremities no clubbing cyanosis, nor edema appreciated bilaterally Coagulation Studies Laboratory Tests Test 09/28/25 19:41 Prothrombin Time 14.9 SECONDS (9.0-12.0) H INR International Normalized Ratio 1.5 INR Activated Partial Thromboplast Time 32 SECONDS (22-32) Coagulation Comments Problem\Assessment\Plan Acute left lacunar stroke over the coronal radiata, new from 2022 Chronic right basal ganglia and right frontoparietal infarcts Acute hypoxemic respiratory failure Acute on chronic decompensated systolic heart failure Afib w/ RVR Medication noncompliance ROMA vs CKD stage 3b Hypertension IDDM Hyperlipidemia CVA (2021), left-sided residual weakness 09/29/25 the patient is admitted as DNR comfort care I spoke to the patient's daughter at bedside and confirmed that is the family can not take the patient home for hospice. ramp manager Betzaida has refer the patient out and there is accepting facilities and a awaiting for the family to decide which facility the patient will be transferred to. Disposition: Awaiting transferred to a post acute rehab for hospice/comfort care.- the family has [facility] and [facility]. Anticipate transferring to [facility] tomorrow 10/01/2025. Date of Service: Sep 30, 2025 Billing Provider: ABHAY LIM DO Common Visit Codes: [id number] INP/OBS CARE(LOW) ABHAY LIM DO Sep 30, 2025 20:01
[2025-10-01 06:00] VITALS: BP 137/106; PULSE 58; RESP 16; TEMP 98.1; O2SAT 98
[2025-10-01 06:56] VITALS: RESP 11
--- NOTE | 2025-10-01 18:51 | DISCHARGE SUMMARY ---
Discharge Summary Providers to CC ~ Discharge Summary Admission Diagnosis: STROKE Hospital Course DATE OF ADMISSION: 09/28/2025 DATE OF DISCHARGE: 10/01/2025 Discharge Diagnosis\\Comment: Acute left lacunar stroke over the denise radiata Chronic right basilar ganglia and right frontoparietal infarcts Acute hypoxic respiratory failure AFib RVR Medication noncompliance ROMA versus CKD Hypertension Insulin-dependent diabetes mellitus Hyperlipidemia Operations\\Procedures: None Consultants: None Complications: None Condition on DC: Stable for transfer Discontinued Medications: [amiodarone] () Aspirin (Aspirin EC) 81 Mg Tablet.dr 1 TAB PO DAILY Atorvastatin Calcium (Atorvastatin Calcium) 80 Mg Tablet 1 TAB PO HS Carvedilol (Carvedilol) 3.125 Mg Tablet 1 TAB PO BID Cholecalciferol (Vitamin D3) (Vitamin D3) 25 Mcg (1000 Unit) Tablet 1 TAB PO DAILY Docusate Sodium (Docusate Sodium) 100 Mg Capsule 1 CAP PO BID Empagliflozin (Jardiance) 10 Mg Tablet 1 TAB PO DAILY Furosemide (Furosemide) 20 Mg Tablet 1 TAB PO DAILY Insulin Glargine,Hum.rec.anlog* (Lantus*) 100 Unit/1 Ml Vial 5 UNITS SQ HS Lisinopril (Lisinopril) 2.5 Mg Tablet 1 TAB PO DAILY Pantoprazole Sodium (Pantoprazole Sodium) 40 Mg Tablet.dr 1 TAB PO QAM Ubidecarenone (Q-Sorb Co Q-10) 100 Mg Capsule 3 CAP PO DAILY Warfarin Sodium (Warfarin Sodium) 2.5 Mg Tablet 1-2 TAB PO DAILY Discharge Summary: The patient was admitted by resident physician Dr.[facility] , under the supervision of NELSON Gary MD with the following HPI:"This is a 65-year-old male with history of atrial fibrillation, CHF, hypertension, type 2 diabetes, hyperlipidemia, chronic pain syndrome, GERD was brought to the ED by his sons the chief complaint of aphasia and confusion. Patient is not alert, awake, oriented at the time of evaluation. Most of the history was taken from the ED physician and son. According to the son, last time known normal was at 11:00 a.m. the patient was trying to go to the restroom and was unable to maintain balance. The patient was not making sense when he was talking, according to son. This concerned the son and hence they brought him to the ED. During the ER doctor evaluation patient has severely speech slurred speech with left-sided gaze. No history of seizures in the past. On my evaluation patient was unable to open his eyes, not following commands, no verbal response GCS 3. Patient was in AFib with heart rate of 110 and systolic blood pressure was in the high 180s. Laboratory workup showed ROMA with a creatinine of 1.76 and elevated blood sugar of 177, INR was 1.5. CT head showed hypodense focus over the left coronary radiata likely lacunar infarct new from 2022. Also showed chronic right basal ganglia and right frontoparietal area infarcts. CTA head and neck showed segmental mild narrowing of the P2 segment of left PIG [employer]. patient lives with his son but son is unsure if the patient is regularly taking his Coumadin for his AFib. His INR at [facility] was 1.2 (not in therapeutic range). Patient goes to the Coumadin clinic once a week and Dr. fernando tobar is his chief solution architect. Patient had previous history of strokes and had risk factors including hypertension, diabetes, hyperlipidemia and atrial fibrillation. Patient has residual weakness from previous strokes but is able to ambulate usually at home. Patient also has some shortness of breath according to the son, he does not use any oxygen at home. He is on 2 L of oxygen through nasal cannula in the ED currently, which is new. During conversation with the patient's son, the patient's son who is the power of corporate associate attorney expressed his opinion about keeping his father comfortable. I explained to him about various resuscitative methods including full code, DNR, DNI, DNR with comfort care. Patient has expressed that they would like to stop all the treatment and keep his father only on comfort measures. When asked if his father wishes for the same, the son mentioned that they had this conversation before and his father also wants the same. Patient son endorsed that they will not be able to take care of the patient at home and need admission for comfort care measures. Hence patient was admitted and initiated on comfort care measures. Hospice care to be discussed by vocational case manager with son in the a.m." The patient had had a head CT scan with the following findings: "Hypodense focus over the left denise radiata which may represent lacunar infarct of unknown chronicity, new from 2022. Otherwise, no evidence of acute intracranial abnormalities. Right basal ganglia and right frontoparietal areas of chronic infarct." As per resident's note the patient has made DNR comfort care I discussed this with the family and that has confirmed that the patient is DNR comfort care in the morning of the - all non comfort care medications and labs were discontinued. The patient has accepted the [facility] post acute rehab for comfort care on 10/01/2025 Gen. No acute distress asleep oriented x 0 Respiratory no acute distress/ no tachypnea Neuro nor abnormal movements or her twitches appreciated The patient was seen and evaluated on day of discharge. Time spent on discharge 20 minutes *Problems/Diagnosis: (1) Cerebral infarction Status: Acute Total Time Spent on D/C: Up to 30 Minutes Date of Service: Oct 01, 2025 Billing Provider: ABHAY LIM DO Common Visit Codes: [id number]-OCO/OBS DISCH DAY <30MIN ABHAY LIM DO Oct 01, 2025 18:51
== END 2025-10-01 14:53 | DRG 64 ==
LOC: ER 19:21 → ED HOLD 21:52 → EDBEDREQ 09-29 01:11 → ORTHO 4S 09-29 02:20
PROVIDERS: ADMIT Internal Medicine Pulmonary Disease; ATTEND Family Medicine
PROC: B3251ZZ Computerized Tomography (CT Scan) of Bilateral Common Carotid Arteries using Low Osmolar Contrast (ICD-10-PCS; principal; 2025-09-28)
PROC: B32G1ZZ Computerized Tomography (CT Scan) of Bilateral Vertebral Arteries using Low Osmolar Contrast (ICD-10-PCS; 2025-09-28)
PROC: B32R1ZZ Computerized Tomography (CT Scan) of Intracranial Arteries using Low Osmolar Contrast (ICD-10-PCS; 2025-09-28)
PROC: B3281ZZ Computerized Tomography (CT Scan) of Bilateral Internal Carotid Arteries using Low Osmolar Contrast (ICD-10-PCS; 2025-09-28)
DX: I63.81 Other cerebral infarction due to occlusion or stenosis of small artery (principal); I50.23 Acute on chronic systolic (congestive) heart failure; J96.01 Acute respiratory failure with hypoxia; I13.0 Hypertensive heart and chronic kidney disease with heart failure and stage 1 through stage 4 chronic kidney disease, or unspecified chronic kidney disease; N17.9 Acute kidney failure, unspecified; G89.4 Chronic pain syndrome; E78.5 Hyperlipidemia, unspecified; N18.9 Chronic kidney disease, unspecified; Z66 Do not resuscitate; K21.9 Gastro-esophageal reflux disease without esophagitis; I48.91 Unspecified atrial fibrillation; E11.65 Type 2 diabetes mellitus with hyperglycemia; Z79.82 Long term (current) use of aspirin; Z79.01 Long term (current) use of anticoagulants; Z79.899 Other long term (current) drug therapy; Z88.0 Allergy status to penicillin; Z91.148 Patient's other noncompliance with medication regimen for other reason; Z51.5 Encounter for palliative care; R47.81 Slurred speech
CPT/HCPCS: 36415; 70450; 70496; 70498; 71045; 80048; 82948; 85025; 85610; 85730; 86885; 86900; 86901; 87081; 93005; 99291; A6590; G0378; J2274; J2405; Q9967